=== PATIENT | female | born 1960 | race Caucasian/White ===

== ENCOUNTER 2017-11-21 12:52 | Emergency (ER) | payer OTHER ==
[2017-11-21 13:19] LABS: Absolute Lymphocytes (CBC) 1.6 K/uL (0.7-4.9); Absolute Monocytes 0.8 K/uL (0.1-1.3); Absolute Neutrophil 2.7 K/uL (1.8-8.0); Basophils % 0.7 % (0-1.3); Eosinophils % 2.8 % (0-4.4); Hematocrit 43.1 % (36.0-45.0); Lymphocytes % 30.2 % (15.3-44.8); MCH 31.7 pg (27.0-35.0); MCV 95.7 fL (80-100); MPV 8.3 fL (7.6-11.3); Monocytes % 15.2 % (3.3-12.3); RBC Red Blood Cell Count 4.51 M/uL (3.86-4.86)
[2017-11-21 13:30] LABS: Protime INR 0.93
--- NOTE | 2017-11-21 13:32 | RAD REPORT ---
EXAM DESCRIPTION: RAD - Chest Single View - 11/21/2017 1:26 pm CLINICAL HISTORY: Chest pain;SOB Chest pain. COMPARISON: CHEST PA AND LAT 2 VIEW dated 05/21/2008; CHEST SINGLE VIEW dated 11/26/2006 FINDINGS: Portable technique limits examination quality. The lungs are grossly clear. The heart is normal in size. No displaced fractures. IMPRESSION: No acute intrathoracic process suspected.
[2017-11-21 13:36] LABS: Albumin 3.4 g/dL (3.4-5.0); Bilirubin Direct 0.1 mg/dL (0-0.2); Bilirubin Total 0.4 mg/dL (0.2-1.0); Magnesium 2.2 mg/dL (1.8-2.4); Potassium 3.5 mmol/L (3.5-5.1); Protein, Total 7.4 g/dL (6.4-8.2)
[2017-11-21 13:49] LABS: Blood Morphology Comment NOT SEEN (NOT SEEN); Platelet Estimate ADEQ; Urine White Blood Cell Casts OK
--- NOTE | 2017-11-21 14:06 | RAD REPORT ---
EXAM DESCRIPTION: CT - Chest For Pe Angio - 11/21/2017 1:56 pm CLINICAL HISTORY: Chest pain. Chest pain;SOB COMPARISON: Chest Single View dated 11/21/2017 TECHNIQUE: CT angiogram of the pulmonary arteries was performed with MIP. All CT scans are performed using dose optimization technique as appropriate and may include automated exposure control or mA/KV adjustment according to patient size. FINDINGS: No evidence of pulmonary thromboembolism. No acute aortic finding demonstrated. Ground-glass opacity is noted in both lungs likely representing mild interstitial pulmonary edema. Small right pleural effusion. Several right lateral rib fractures are noted with evidence of callus formation/healing. IMPRESSION: No evidence of pulmonary thromboembolism. Mild interstitial pulmonary edema suspected.
--- NOTE | 2017-11-21 15:35 | RAD REPORT ---
EXAM DESCRIPTION: VAS - Extrem Venous W Compress Jesús - 11/21/2017 3:28 pm CLINICAL HISTORY: selling and SOB;Pain Bilateral leg edema and swelling. COMPARISON: Extrem Venous W Compress Jesús dated 03/22/2016 TECHNIQUE: Real-time sonographic interrogation of the left and right lower extremity deep venous sys tems was performed. FINDINGS: Normal compressibility, flow augmentation, phasic flow and spontaneous flow is identified in both the left and right lower extremity deep venous systems. IMPRESSION: No sonographic evidence of left or right lower extremity deep venous thrombosis.
--- NOTE | 2017-11-21 15:55 | EDPHYS ---
Physician Documentation [facility] Name: Nicky Jaquez Age: 57 yrs Sex: Female : 1960 Arrival Date: 11/21/2017 Time: 12:54 Bed 23 Private MD: Miguelito Cummings ED Physician Gigi Batista HPI: 11/21 16:14 This 57 yrs old Female presents to ER via Wheelchair with complaints of Chest kdr Pain, Shortness Of Breath. 16:14 The patient or guardian reports chest pain that is located primarily in the anterior kdr chest wall, right. Onset: suddenly, 3 day(s) ago. The pain does not radiate. Associated signs and symptoms: Pertinent positives: shortness of breath, Pertinent negatives: abdominal pain, cough, diaphoresis, dizziness, headache, lower extremity pain, lower extremity swelling, lightheadedness, nausea, near syncope, palpitations, recent travel, syncope, vomiting. The chest pain is described as aching, burning, dull. Duration: The patient or guardian reports multiple episodes, that are intermittent, that wax and wane, with no pattern. Modifying factors: The symptoms are alleviated by nothing. the symptoms are aggravated by nothing. Severity of pain: At its worst the pain was mild in the emergency department the pain has improved mildly. The patient has not experienced similar symptoms in the past. The patient has been recently seen by a physician: Dr. Cummings Sent to the ED for eval. Historical: - Allergies: 13:11 Copaxone; aj - Home Meds: 13:11 levothyroxine oral [Active]; venlafaxine oral oral [Active]; Abilify oral oral aj [Active]; quetiapine oral oral [Active]; Avelox Oral [Active]; Topamax Oral [Active]; aspirin 81 mg Oral TbEC 1 tab once daily [Active]; - PMHx: 13:11 Bipolar disorder; Multiple Sclerosis; Glaucoma; aj - PSHx: 13:11 Tonsillectomy; ; Cholecystectomy; aj - Immunization history:: Adult Immunizations up to date. - Social history:: Smoking status: Patient/guardian denies using tobacco. - Ebola Screening: : Patient negative for fever greater than or equal to 101.5 degrees Fahrenheit, and additional compatible Ebola Virus Disease symptoms Patient denies exposure to infectious person Patient denies travel to an Ebola-affected area in the 21 days before illness onset No symptoms or risks identified at this time. ROS: 16:14 Constitutional: Negative for fever, chills, and weight loss, Eyes: Negative for injury, kdr pain, redness, and discharge, Neck: Negative for injury, pain, and swelling, Abdomen/GI: Negative for abdominal pain, nausea, vomiting, diarrhea, and constipation, Back: Negative for injury and pain, : Negative for injury, bleeding, discharge, and swelling, MS/Extremity: Negative for injury and deformity, Skin: Negative for injury, rash, and discoloration, Neuro: Negative for headache, weakness, numbness, tingling, and seizure activity. Psych: Negative for depression, anxiety, suicide ideation, homicidal ideation, and hallucinations, Allergy/Immunology: Negative for hives, rash, and allergies, Endocrine: Negative for neck swelling, polydipsia, polyuria, polyphagia, and marked weight changes, Hematologic/Lymphatic: Negative for swollen nodes, abnormal bleeding, and unusual bruising. 16:14 Cardiovascular: Positive for chest pain, Negative for edema, orthopnea, palpitations, paroxysmal nocturnal dyspnea, acute changes. 16:14 Respiratory: Positive for shortness of breath, Negative for cough, dyspnea on exertion, hemoptysis, orthopnea, SOB when talking. Exam: 16:14 Constitutional: This is a well developed, well nourished patient who is awake, alert, kdr and in no acute distress. Head/Face: Normocephalic, atraumatic. Eyes: Pupils equal round and reactive to light, extra-ocular motions intact. Lids and lashes normal. Conjunctiva and sclera are non-icteric and not injected. Cornea within normal limits. Periorbital areas with no swelling, redness, or edema. Neck: Trachea midline, no thyromegaly or masses palpated, and no cervical lymphadenopathy. Supple, full range of motion without nuchal rigidity, or vertebral point tenderness. No Meningismus. Chest/axilla: Normal chest wall appearance and motion. Nontender with no deformity. No lesions are appreciated. Cardiovascular: Regular rate and rhythm with a normal S1 and S2. No gallops, murmurs, or rubs. Normal PMI, no JVD. No pulse deficits. Respiratory: Lungs have equal breath sounds bilaterally, clear to auscultation and percussion. No rales, rhonchi or wheezes noted. No increased work of breathing, no retractions or nasal flaring. Abdomen/GI: Soft, non-tender, with normal bowel sounds. No distension or tympany. No guarding or rebound. No evidence of tenderness throughout. Back: No spinal tenderness. No costovertebral tenderness. Full range of motion. Skin: Warm, dry with normal turgor. Normal color with no rashes, no lesions, and no evidence of cellulitis. MS/ Extremity: Pulses equal, no cyanosis. Neurovascular intact. Full, normal range of motion. Neuro: Awake and alert, GCS 15, oriented to person, place, time, and situation. Cranial nerves II-XII grossly intact. Motor strength 5/5 in all extremities. Sensory grossly intact. Cerebellar exam normal. Normal gait. Psych: Awake, alert, with orientation to person, place and time. Behavior, mood, and affect are within normal limits. Vital Signs: 13:11 BP 127 / 93; Pulse 104; Resp 22; Temp 97.6; Pulse Ox 99% on R/A; Weight 87.09 kg; aj Height 5 ft. 5 in. (165.10 cm); 13:58 BP 135 / 89; Pulse 103; Resp 16; Pulse Ox 100% on R/A; kr2 14:36 BP 140 / 78; Pulse 98; Resp 17; Pulse Ox 96% on R/A; kr2 15:38 BP 146 / 70; Pulse 100; Resp 17; Pulse Ox 100% ; kr2 13:11 Body Mass Index 31.95 (87.09 kg, 165.10 cm) MDM: 15:54 Patient medically screened. kdr 16:14 Data reviewed: vital signs, EMS record, lab test result(s), EKG, radiologic studies. kdr Counseling: I had a detailed discussion with the patient and/or guardian regarding: the historical points, exam findings, and any diagnostic results supporting the discharge/admit diagnosis, lab results, radiology results, the need for outpatient follow up. Physician consultation: Miguelito Cummings MD regarding patient's condition, need to evaluate the patient as soon as possible, outpatient follow-up, and will see patient in office, next week. Special discussion: Based on the patient's history, exam, and Dx evaluation, there is no indication for emergent intervention or inpatient Tx. It is understood by the patient/guardian that if the Sx's persist or worsen they need to return immediately for re-evaluation. I discussed with the patient/guardian in detail that at this point there is no indication for admission to the hospital. It is understood, however, that if the symptoms persist or worsen the patient needs to return immediately for re-evaluation. 11/21 13:00 Order name: Basic Metabolic Panel; Complete Time: 14:49 kdr 11/21 13:00 Order name: CBC with Diff; Complete Time: 14:49 kdr 11/21 13:00 Order name: LFT's; Complete Time: 14:49 kdr 11/21 13:00 Order name: Magnesium; Complete Time: 14:49 kdr 11/21 13:00 Order name: NT PRO-BNP; Complete Time: 14:49 kdr 11/21 13:01 Order name: PT-INR; Complete Time: 14:49 kdr 11/21 13:01 Order name: Ptt, Activated; Complete Time: 14:49 kdr 11/21 13:01 Order name: Troponin (emerg Dept Use Only); Complete Time: 14:49 kdr 11/21 13:01 Order name: XRAY Chest (1 view); Complete Time: 14:49 kdr 11/21 13:01 Order name: Blood Culture Adult (2) kdr 11/21 13:01 Order name: DD; Complete Time: 14:49 kdr 11/21 13:26 Order name: CBC Smear Scan; Complete Time: 14:49 EDMS 11/21 15:14 Order name: Urine Dipstick--Ancillary (enter results) eb 11/21 15:14 Order name: Urine --Ancillary (enter results) eb 11/21 13:01 Order name: EKG; Complete Time: 13:01 kdr 11/21 13:01 Order name: Cardiac monitoring; Complete Time: 13:07 kdr 11/21 13:01 Order name: EKG - Nurse/Tech; Complete Time: 13:07 kdr 11/21 13:01 Order name: IV Saline Lock; Complete Time: 13:07 kdr 11/21 13:01 Order name: Labs collected and sent; Complete Time: 13:07 kdr 11/21 13:01 Order name: O2 Per Protocol; Complete Time: 13:07 kdr 11/21 13:01 Order name: O2 Sat Monitoring; Complete Time: 13:07 kdr 11/21 13:01 Order name: Urine Dipstick-Ancillary (obtain specimen); Complete Time: 15:06 kdr 11/21 13:01 Order name: CT Chest For PE Angio; Complete Time: 14:49 kdr 11/21 14:55 Order name: US Extremity Venous W Compression Jesús; Complete Time: 15:52 kdr Administered Medications: No medications were administered Disposition: 11/21/17 15:54 Discharged to Home. Impression: Chest pain, unspecified, Shortness of breath. - Condition is Stable. - Discharge Instructions: Shortness of Breath, [id number], Nonspecific Chest Pain, [id number]. - Medication Reconciliation Form, Thank You Letter form. - Follow up: Miguelito Cummings MD; When: 2 - 3 days; Reason: If symptoms return, Further diagnostic work-up, Recheck today's complaints, Continuance of care, Re-evaluation by your physician. - Problem is new. - Symptoms have improved. Signatures: Dispatcher [employer] EDNV Daria Olea RN RN Gigi Isabel MD MD kdr Gina Beltran RN RN kr2 Corrections: (The following items were deleted from the chart) 16:05 15:54 11/21/2017 15:54 Discharged to Home. Impression: Chest pain, unspecified; kr2 Shortness of breath. Condition is Stable. Forms are Medication Reconciliation Form, Thank You Letter, Antibiotic Education, Prescription Opioid Use. Follow up: Miguelito Cummings; When: 2 - 3 days; Reason: If symptoms return, Further diagnostic work-up, Recheck today's complaints, Continuance of care, Re-evaluation by your physician. Problem is new. Symptoms have improved. kdr
--- NOTE | 2017-11-21 15:55 | ER ---
Nurse's Notes [facility] Name: Nicky Jaquez Age: 57 yrs Sex: Female : 1960 Arrival Date: 11/21/2017 Time: 12:54 Bed 23 Private MD: Miguelito Cummings Diagnosis: Chest pain, unspecified;Shortness of breath Presentation: 11/21 13:08 Presenting complaint: Patient states: Pain in right clavicle that moves around to right aj axilla and then to back with SOB since Tuesday. Patient reports pain is worse with movement and deep breathing. In NAD. Respirations are even and unlabored. Transition of care: patient was not received from another setting of care. Onset of symptoms was November 19, 2017. Risk Assessment: Do you want to hurt yourself or someone else? Patient reports no desire to harm self or others. Initial Sepsis Screen: Does the patient meet any 2 criteria? No. Patient's initial sepsis screen is negative. Does the patient have a suspected source of infection? No. Patient's initial sepsis screen is negative. Care prior to arrival: None. 13:08 Method Of Arrival: Wheelchair aj 13:08 Acuity: JOHN 3 aj Triage Assessment: 13:11 General: Appears in no apparent distress. comfortable, Behavior is calm, cooperative, aj appropriate for age. Pain: Complains of pain in back, right clavicle, anterior aspect of right upper chest and right axilla. Pain: Aggravated by increased activity. Neuro: Level of Consciousness is awake, alert, obeys commands, Oriented to person, place, time, situation, Appropriate for age. Cardiovascular: Capillary refill < 3 seconds in bilateral fingers Patient's skin is warm and dry. Respiratory: Airway is patent Trachea midline Respiratory effort is even, unlabored, Respiratory pattern is regular, symmetrical. Respiratory: Reports pain with respiration. Derm: Skin is intact, is healthy with good turgor, Skin is pink, warm \T\ dry. normal. Historical: - Allergies: 13:11 Copaxone; aj - Home Meds: 13:11 levothyroxine oral [Active]; venlafaxine oral oral [Active]; Abilify oral oral aj [Active]; quetiapine oral oral [Active]; Avelox Oral [Active]; Topamax Oral [Active]; aspirin 81 mg Oral TbEC 1 tab once daily [Active]; - PMHx: 13:11 Bipolar disorder; Multiple Sclerosis; Glaucoma; aj - PSHx: 13:11 Tonsillectomy; ; Cholecystectomy; aj - Immunization history:: Adult Immunizations up to date. - Social history:: Smoking status: Patient/guardian denies using tobacco. - Ebola Screening: : Patient negative for fever greater than or equal to 101.5 degrees Fahrenheit, and additional compatible Ebola Virus Disease symptoms Patient denies exposure to infectious person Patient denies travel to an Ebola-affected area in the 21 days before illness onset No symptoms or risks identified at this time. Screenin:31 Abuse screen: Denies threats or abuse. Denies injuries from another. Nutritional kr2 screening: No deficits noted. Tuberculosis screening: No symptoms or risk factors identified. Fall Risk None identified. Assessment: 13:05 General: Appears in no apparent distress. uncomfortable, well groomed, well developed, kr2 well nourished, Behavior is calm, cooperative, appropriate for age. Pain: Complains of pain in anterior aspect of right upper chest Pain radiates to right arm and back and right axilla and right clavicle Pain currently is 6 out of 10 on a pain scale. Quality of pain is described as sharp, shooting, stabbing, Pain began suddenly, Is continuous, Alleviated by rest, Aggravated by increased activity. Neuro: Level of Consciousness is awake, alert, obeys commands, Oriented to person, place, time, situation, Appropriate for age. Cardiovascular: Capillary refill < 3 seconds in bilateral fingers Patient's skin is warm and dry. Respiratory: Airway is patent Respiratory effort is even, unlabored, Respiratory pattern is regular, symmetrical. GI: Abdomen is flat, non-distended, Patient currently denies nausea. : Denies burning with urination. EENT: Oral mucosa is moist. Derm: Skin is intact, is healthy with good turgor, Skin is pink, warm \T\ dry. Musculoskeletal: Circulation, motion, and sensation intact. 13:58 Reassessment: Patient appears in no apparent distress at this time. Patient and/or kr2 family updated on plan of care and expected duration. Pain level reassessed. Patient is alert, oriented x 3, equal unlabored respirations, skin warm/dry/pink. Patient states feeling better. 14:36 Reassessment: Patient appears in no apparent distress at this time. Patient and/or kr2 family updated on plan of care and expected duration. Pain level reassessed. Patient is alert, oriented x 3, equal unlabored respirations, skin warm/dry/pink. Patient states feeling better. 15:19 Reassessment: Patient in ultrasound at this time. kr2 15:36 Reassessment: Patient appears in no apparent distress at this time. Patient and/or kr2 family updated on plan of care and expected duration. Pain level reassessed. Patient is alert, oriented x 3, equal unlabored respirations, skin warm/dry/pink. Patient returned from ultrasound. Placed back on monitors. Denies having any needs at this time Patient states symptoms have improved. Vital Signs: 13:11 BP 127 / 93; Pulse 104; Resp 22; Temp 97.6; Pulse Ox 99% on R/A; Weight 87.09 kg; aj Height 5 ft. 5 in. (165.10 cm); 13:58 BP 135 / 89; Pulse 103; Resp 16; Pulse Ox 100% on R/A; kr2 14:36 BP 140 / 78; Pulse 98; Resp 17; Pulse Ox 96% on R/A; kr2 15:38 BP 146 / 70; Pulse 100; Resp 17; Pulse Ox 100% ; kr2 13:11 Body Mass Index 31.95 (87.09 kg, 165.10 cm) ED Course: 12:54 Patient arrived in ED. sb2 12:55 Miguelito Cummings MD is Private Physician. sb2 12:59 Gigi Batista MD is Attending Physician. kdr 13:04 Radiology exam delayed due to lab results not completed at this time. (BUN/Creatinine). vm2 13:05 Inserted saline lock: 20 gauge in right antecubital area, using aseptic technique. kr2 Blood collected. Patient maintains SpO2 saturation greater than 95% on room air. 13:05 Patient has correct armband on for positive identification. Bed in low position. Call kr2 light in reach. Side rails up X2. cardiac monitor on. Pulse ox on. NIBP on. Door closed. Warm blanket given. Head of bed elevated. 13:06 Gina Beltran, BERNARDO is Primary Nurse. kr2 13:09 Triage completed. aj 13:09 EKG done, by resource technician. reviewed by Gigi Batista MD. at1 13:11 Arm band placed on left wrist. Patient placed in an exam room, on a stretcher. EKG aj completed in triage. Results shown to MD. 13:16 X-ray completed. Portable x-ray completed in exam room. Patient tolerated procedure mh1 well. 13:18 XRAY Chest (1 view) In Process Unspecified. EDMS 13:40 Notified ED physician of a critical lab result(s). Dr. Batista DDimer [id number]. kr2 13:[address] vm2 13:54 CT completed. Patient tolerated procedure well. Patient moved back from CT. vm2 13:56 CT Chest For PE Angio In Process Unspecified. EDMS 15:14 Patient taken to ultrasound. via wheelchair. lc3 15:22 Ultrasound completed. Patient tolerated well. Patient moved back from ultrasound. lc3 15:23 US Extremity Venous W Compression Jesús In Process Unspecified. EDMS 15:54 Miguelito Cummings MD is Referral Physician. kdr 16:04 No provider procedures requiring assistance completed. Patient did not have IV access kr2 during this emergency room visit. Administered Medications: No medications were administered Outcome: 15:54 Discharge ordered by . kdr 16:05 Discharged to home ambulatory, with family. kr2 16:05 Condition: good 16:05 Discharge instructions given to patient, Instructed on discharge instructions, follow up and referral plans. Demonstrated understanding of instructions, follow-up care. 16:05 Patient left the ED. kr2 Signatures: Dispatcher [employer] EDMS Daria Olea, RN RN Gigi Isabel MD MD kdr Marychuy Rm mh1 Daria posadas, account manager relief EKG Tat1 Serena Alvarado lc3 Cydney Álvarez vm2 Gina Beltran RN RN kr2 Joyce Garcia sb2
--- NOTE | 2017-11-21 16:20 | EKG ---
Test Date: 2017-11-21 Test Time: 13:05:37 Gymnastics Coach: CHANDRAKANT MEASUREMENT RESULTS: Intervals: Rate: 101 MN: 158 QRSD: 74 QT: 344 QTc: 446 [place]: P: 71 MN: 158 QRS: 43 T: 61 INTERPRETIVE STATEMENTS: Sinus tachycardia Otherwise normal ECG Compared to ECG 11/26/2006 20:27:44 Sinus rhythm no longer present Electronically Signed On 11-21-17 16:20:07 CDT by Esvin Steiner
[2017-11-21 16:37] LABS: Urine Blood NEGATIVE (NEG); Urine Glucose NEGATIVE (NEG); Urine Protein NEGATIVE (NEG); Urine Specific Gravity 1.015 (1.005-1.030); Urine pH 7.5 (5.0-7.0)
== END 2017-11-21 16:05 | disposition home or self-care (01) ==
LOC: ER 12:52
DX: R07.9 Chest pain, unspecified (principal); R06.02 Shortness of breath; F31.9 Bipolar disorder, unspecified; Z79.82 Long term (current) use of aspirin; Z88.8 Allergy status to other drugs, medicaments and biological substances
CPT/HCPCS: 36415; 71045; 71275; 80048; 80076; 81003; 81025; 83735; 83880; 84484; 85025; 85379; 85610; 85730; 87040; 93005; 93970; 99285; Q9967

== ENCOUNTER 2019-06-17 12:12 | Emergency (ER) | payer OTHER ==
--- OUTSIDE RECORDS SUMMARY | 2019-06-17 12:13 | XMS REPORT ---
:1960 [facility] Address [address] [place] [address] Dr. Disla [address] [place] [id number] Care Team Providers Name Role Phone Unavailable Unavailable Unavailable Problems This patient has no known problems. Allergies, Adverse Reactions, Alerts This patient has no known allergies or adverse reactions. Medications This patient has no known medications.
[2019-06-17] MEDS ORDERED: NA CHLORIDE 0.9% 1,000 ML ONE (13:09)
[2019-06-17 13:19] LABS: Absolute Lymphocytes (CBC) 1.4 K/uL (0.7-4.9); Basophils % 0.6 % (0-1.3); Hematocrit 36.4 % (36.0-45.0); Lymphocytes % 27.4 % (15.3-44.8); MPV 8.4 fL (7.6-11.3); RBC Red Blood Cell Count 4.09 M/uL (3.86-4.86)
[2019-06-17 13:20] LABS: Protime INR 1.54
--- NOTE | 2019-06-17 13:26 | RAD REPORT ---
EXAM DESCRIPTION: RAD - Chest Single View - 06/17/2019 1:20 pm CLINICAL HISTORY: COUGH COMPARISON: Chest Single View dated 11/21/2017 TECHNIQUE: AP portable chest image was obtained 06/17/2019 1:20 pm . FINDINGS: Lungs are clear. Heart and vasculature are normal. No measurable pleural effusion and no p neumothorax. No acute bony abnormality seen. No acute aortic findings suspected. IMPRESSION: No acute cardiopulmonary process. No significant interval change.
[2019-06-17 13:36] LABS: ALT/SGPT 20 U/L (12-78); AST/SGOT 21 U/L (15-37); Alkaline Phosphatase 79 U/L (45-117); BUN Blood Urea Nitrogen 14 mg/dL (7-18); Bicarbonate 30 mmol/L (21-32); Bilirubin Direct < 0.1 mg/dL (0-0.2); Bilirubin Total 0.3 mg/dL (0.2-1.0); Glucose Level 85 mg/dL (74-106); Magnesium 1.9 mg/dL (1.8-2.4); NT PRO-BNP 152 pg/mL (<125); Potassium 4.2 mmol/L (3.5-5.1); Protein, Total 6.7 g/dL (6.4-8.2); Sodium Level 140 mmol/L (136-145); Troponin (Emerg Dept Use Only) < 0.02 ng/mL (0.0-0.045)
--- NOTE | 2019-06-17 14:37 | RAD REPORT ---
EXAM DESCRIPTION: CT - Chest For Pe Angio - 06/17/2019 2:08 pm CLINICAL HISTORY: COUGH, history of right leg DVT treated with Xeralto COMPARISON: Chest For Pe Angio dated 11/21/2017; Chest Single View dated 06/17/2019 TECHNIQUE: Dynamically enhanced 3 mm thick images of the chest were obtained during administration o f approximately 150mL Isovue 370 IV contrast. Coronal and oblique MIP reconstruction images were gene rated and reviewed. Exam utilizes a protocol to evaluate the pulmonary arterial tree. All CT scans are performed using dose optimization technique as appropriate and may include automated exposure control or mA/KV adjustment according to patient size. FINDINGS: No pulmonary emboli are identified. The aorta as imaged shows no acute or suspicious finding. No pericardial thickening or effusion. No infiltrate or mass in the lung parenchyma. No pleural effusion or pleural thickening. No mediastinal or hilar suspicious masses. No chest wall masses or abnormal axillary lymphadenopathy. IMPRESSION: No pulmonary emboli identified. No other significant or suspicious findings.No significant change from the 2018 CT study.
--- NOTE | 2019-06-17 14:39 | RAD REPORT ---
EXAM DESCRIPTION: US - Extrem Venous W Compress Jesús - 06/17/2019 1:52 pm CLINICAL HISTORY: Right lower extremity pain COMPARISON: DVT study April 26, 2019 TECHNIQUE: Real-time sonographic evaluation of the bilateral lower extremity common femoral, superfi cial femoral, popliteal and posterior tibial veins was performed. FINDINGS: Normal compressibility, flow augmentation, phasic flow and spontaneous flow are identified in the left and right lower extremity common femoral, superficial femoral, popliteal and posterior t ibial veins. No intraluminal filling defects seen. Thrombus seen in the right common femoral vein Dec ember 12 has resolved. IMPRESSION: No DVT in either lower extremity.
--- NOTE | 2019-06-17 14:49 | ER ---
Nurse's Notes [facility] Name: Nicky Jaquez Age: 58 yrs Sex: Female : 1960 Arrival Date: 06/17/2019 Time: 12:13 Bed 26 Private MD: Miguelito Cummings Diagnosis: Dyspnea Presentation: 06/17 12:22 Presenting complaint: Patient states: She was diagnosed with a blood clot in her right aj1 femoral vein, she was started on Xarelto, the past 2 or 3 nights she has been feeling short of breath. Transition of care: patient was not received from another setting of care. Onset of symptoms was June 2019. Risk Assessment: Do you want to hurt yourself or someone else? Patient reports no desire to harm self or others. Initial Sepsis Screen: Does the patient meet any 2 criteria? HR > 90 bpm. No. Patient's initial sepsis screen is negative. Does the patient have a suspected source of infection? Yes: Productive cough/pneumonia. Care prior to arrival: None. 12:22 Method Of Arrival: Wheelchair aj1 12:22 Acuity: JOHN 2 aj1 Triage Assessment: 12:26 General: Appears in no apparent distress. comfortable, Behavior is calm, cooperative, aj1 appropriate for age. Pain: Denies pain. Neuro: Level of Consciousness is awake, alert, obeys commands, Oriented to person, place, time, situation. Cardiovascular: Patient's skin is warm and dry. Respiratory: Reports shortness of breath at rest Airway is patent Respiratory effort is even, unlabored, Respiratory pattern is regular, symmetrical, Onset: The symptoms/episode began/occurred yesterday, the patient has mild shortness of breath. Historical: - Allergies: 12: Copaxone; aj1 - Home Meds: 12:26 levothyroxine 75 mcg oral tab once daily [Active]; venlafaxine 225 mg oral tr24 1 tab aj1 once daily [Active]; aripiprazole 10 mg oral TbDL 1 tab once daily [Active]; metoprolol tartrate 50 mg Oral tab 1 tab 2 times per day [Active]; Xarelto 20 mg oral tab 1 tab once daily [Active]; Crestor 20 mg oral tab 1 tab once daily [Active]; multivitamin oral oral daily [Active]; caclium with vitamin d3 daily [Active]; pantoprazole 40 mg oral TbEC 1 tab once daily [Active]; - PMHx: 12:26 Bipolar disorder; Glaucoma; Multiple Sclerosis; aj1 - Immunization history:: Flu vaccine is up to date. - Coronavirus screen:: The patient has NOT traveled to [place], [place], or [place] in the past 14 days. - Social history:: Smoking status: Patient/guardian denies using tobacco. - Ebola Screening: : Patient denies travel to an Ebola-affected area in the 21 days before illness onset. Screenin:00 Fall Risk IV access (20 points). mg2 13:59 Abuse screen: Denies threats or abuse. Denies injuries from another. Nutritional mg2 screening: No deficits noted. Tuberculosis screening: No symptoms or risk factors identified. Assessment: 13:56 General: Appears in no apparent distress. comfortable, Behavior is calm, cooperative. mg2 Pain: Denies pain. Neuro: Level of Consciousness is awake, alert, obeys commands, Oriented to person, place, time, situation. Cardiovascular: Rhythm is regular. Respiratory: Airway is patent Respiratory effort is even, unlabored, Respiratory pattern is regular, symmetrical, Breath sounds are clear bilaterally. in mediastinum, right upper lobe, left upper lobe, right middle lobe, left lower lobe and right lower lobe. Respiratory: Reports shortness of breath. GI: No signs and/or symptoms were reported involving the gastrointestinal system. : No signs and/or symptoms were reported regarding the genitourinary system. EENT: No signs and/or symptoms were reported regarding the EENT system. Derm: Skin is intact, is healthy with good turgor, Skin is pink, warm \T\ dry. normal. Musculoskeletal: Circulation, motion, and sensation intact. Capillary refill < 3 seconds. 15:11 Reassessment: Patient appears in no apparent distress at this time. Patient is alert, mg2 oriented x 3, equal unlabored respirations, skin warm/dry/pink. Vital Signs: 12:26 BP 104 / 67; Pulse 104; Resp 20; Temp 98.2; Pulse Ox 97% on R/A; Weight 90.72 kg (R); aj1 Height 5 ft. 4 in. (162.56 cm) (R); Pain 0/10; 14:45 BP 117 / 69; Pulse 87; Resp 18; Pulse Ox 100% ; mg2 15:11 BP 113 / 70; Pulse 78; Resp 18; Temp 98; Pulse Ox 100% on R/A; mg2 12:26 Body Mass Index 34.33 (90.72 kg, 162.56 cm) aj1 ED Course: 12:13 Patient arrived in ED. rg4 12:14 Miguelito Cummings MD is Private Physician. rg4 12:24 Triage completed. aj1 12:26 Arm band placed on Patient placed in an exam room. aj1 12:32 Ej Espinosa MD is Attending Physician. hemal 12:34 Jim Valdez RN is Primary Nurse. mg2 13:00 Inserted saline lock: 20 gauge in right antecubital area, using aseptic technique. mg2 Blood collected. 13:05 Radiology exam delayed due to lab results not completed at this time. (BUN/Creatinine). bq 13:27 XRAY Chest (1 view) In Process Unspecified. EDMS 13:52 US Extremity Venous W Compression Jesús In Process Unspecified. EDMS 13:57 Ultrasound completed. Patient tolerated well. Notified ED Physician . sg3 13:59 No provider procedures requiring assistance completed. mg2 14:00 Patient has correct armband on for positive identification. rn observation on. Pulse mg2 ox on. NIBP on. 14:08 CT Chest For PE Angio In Process Unspecified. EDMS 14:08 CT completed. Patient tolerated procedure well. Patient moved back from CT. mw3 14:48 Miguelito Cummings MD is Referral Physician. hemal 15:11 IV discontinued, intact, bleeding controlled, No redness/swelling at site. Pressure mg2 dressing applied. Administered Medications: 13:11 Drug: NS 0.9% 1000 ml Route: IV; Rate: 1 bolus; Site: right antecubital; mg2 15:10 Follow up: Response: No adverse reaction; IV Status: Completed infusion; IV Intake: mg2 1000ml Intake: 15:10 IV: 1000ml; Total: 1000ml. mg2 Outcome: 14:49 Discharge ordered by . hemal 15:12 Discharged to home ambulatory, with family. mg2 15:12 Condition: stable 15:12 Discharge instructions given to patient, family, Instructed on discharge instructions, follow up and referral plans. Demonstrated understanding of instructions, follow-up care. 15:12 Patient left the ED. mg2 Signatures: Dispatcher [employer] EDMS Carolina Champion RN RN aj1 Ej Espinosa MD MD cha Quilty, Amairani Mills rg4 Laura Garcia sg3 Jim Valdez, BERNARDO RN Larisa Coker 3
--- NOTE | 2019-06-17 14:49 | EDPHYS ---
Physician Documentation [facility] Name: Nicky Jaquez Age: 58 yrs Sex: Female : 1960 Arrival Date: 06/17/2019 Time: 12:13 Bed 26 Private MD: Miguelito Cummings ED Physician Ej Espinosa HPI: 06/17 12:49 This 58 yrs old Female presents to ER via Wheelchair with complaints of hemal Breathing Difficulty. 12:49 The patient has shortness of breath at rest, with light activity. Onset: The hemal symptoms/episode began/occurred 2 day(s) ago. The patient's shortness of breath has no apparent modifying factors. Associated signs and symptoms: Pertinent positives: non-productive cough. Severity of symptoms: At their worst the symptoms were mild moderate in the emergency department the symptoms are unchanged. The patient has experienced similar episodes in the past, a few times. Historical: - Allergies: 12:26 Copaxone; aj1 - Home Meds: 12:26 levothyroxine 75 mcg oral tab once daily [Active]; venlafaxine 225 mg oral tr24 1 tab aj1 once daily [Active]; aripiprazole 10 mg oral TbDL 1 tab once daily [Active]; metoprolol tartrate 50 mg Oral tab 1 tab 2 times per day [Active]; Xarelto 20 mg oral tab 1 tab once daily [Active]; Crestor 20 mg oral tab 1 tab once daily [Active]; multivitamin oral oral daily [Active]; caclium with vitamin d3 daily [Active]; pantoprazole 40 mg oral TbEC 1 tab once daily [Active]; - PMHx: 12:26 Bipolar disorder; Glaucoma; Multiple Sclerosis; aj1 - Immunization history:: Flu vaccine is up to date. - Coronavirus screen:: The patient has NOT traveled to [place], [place], or [place] in the past 14 days. - Social history:: Smoking status: Patient/guardian denies using tobacco. - Ebola Screening: : Patient denies travel to an Ebola-affected area in the 21 days before illness onset. ROS: 12:50 Constitutional: Negative for fever, chills, and weight loss, Eyes: Negative for injury, hemal pain, redness, and discharge, ENT: Negative for injury, pain, and discharge, Neck: Negative for injury, pain, and swelling, Cardiovascular: Negative for chest pain, palpitations, and edema, Abdomen/GI: Negative for abdominal pain, nausea, vomiting, diarrhea, and constipation, Back: Negative for injury and pain, : Negative for injury, bleeding, discharge, and swelling, Skin: Negative for injury, rash, and discoloration, Neuro: Negative for headache, weakness, numbness, tingling, and seizure, Psych: Negative for depression, anxiety, suicide ideation, homicidal ideation, and hallucinations, Allergy/Immunology: Negative for hives, rash, and allergies, Endocrine: Negative for neck swelling, polydipsia, polyuria, polyphagia, and marked weight changes, Hematologic/Lymphatic: Negative for swollen nodes, abnormal bleeding, and unusual bruising. 12:50 Respiratory: Positive for cough, with no reported sputum, shortness of breath, at rest. 12:50 MS/extremity: Positive for decreased range of motion, pain, swelling, of the right leg. Exam: 12:50 Constitutional: This is a well developed, well nourished patient who is awake, alert, hemal and in no acute distress. Head/Face: Normocephalic, atraumatic. Eyes: Pupils equal round and reactive to light, extra-ocular motions intact. Lids and lashes normal. Conjunctiva and sclera are non-icteric and not injected. Cornea within normal limits. Periorbital areas with no swelling, redness, or edema. ENT: Nares patent. No nasal discharge, no septal abnormalities noted. Tympanic membranes are normal and external auditory canals are clear. Oropharynx with no redness, swelling, or masses, exudates, or evidence of obstruction, uvula midline. Mucous membranes moist. Neck: Trachea midline, no thyromegaly or masses palpated, and no cervical lymphadenopathy. Supple, full range of motion without nuchal rigidity, or vertebral point tenderness. No Meningismus. Chest/axilla: Normal chest wall appearance and motion. Nontender with no deformity. No lesions are appreciated. Cardiovascular: Regular rate and rhythm with a normal S1 and S2. No gallops, murmurs, or rubs. Normal PMI, no JVD. No pulse deficits. Respiratory: Lungs have equal breath sounds bilaterally, clear to auscultation and percussion. No rales, rhonchi or wheezes noted. No increased work of breathing, no retractions or nasal flaring. Abdomen/GI: Soft, non-tender, with normal bowel sounds. No distension or tympany. No guarding or rebound. No evidence of tenderness throughout. Back: No spinal tenderness. No costovertebral tenderness. Full range of motion. Female : Normal external genitalia. Skin: Warm, dry with normal turgor. Normal color with no rashes, no lesions, and no evidence of cellulitis. Neuro: Awake and alert, GCS 15, oriented to person, place, time, and situation. Cranial nerves II-XII grossly intact. Motor strength 5/5 in all extremities. Sensory grossly intact. Cerebellar exam normal. Normal gait. Psych: Awake, alert, with orientation to person, place and time. Behavior, mood, and affect are within normal limits. 12:50 Musculoskeletal/extremity: ROM: full active range of motion, full passive range of motion, Circulation is intact in all extremities. Sensation intact. Compartment Syndrome exam of affected extremity: is normal. DVT Exam: negative Homans' sign noted on exam, no appreciated bluish discoloration, no erythema, no increased warmth, pain, swelling, tenderness. Vital Signs: 12:26 BP 104 / 67; Pulse 104; Resp 20; Temp 98.2; Pulse Ox 97% on R/A; Weight 90.72 kg (R); aj1 Height 5 ft. 4 in. (162.56 cm) (R); Pain 0/10; 14:45 BP 117 / 69; Pulse 87; Resp 18; Pulse Ox 100% ; mg2 15:11 BP 113 / 70; Pulse 78; Resp 18; Temp 98; Pulse Ox 100% on R/A; mg2 12:26 Body Mass Index 34.33 (90.72 kg, 162.56 cm) [facility] MDM: 12:32 [facility] 12:52 Data reviewed: vital signs, nurses notes, lab test result(s), EKG, radiologic studies, [facility] scan, doppler, plain films. 06/17 12:49 Order name: Basic Metabolic Panel; Complete Time: 14:00 [facility] 06/17 12:49 Order name: CBC with Diff; Complete Time: 13:36 [facility] 06/17 12:49 Order name: LFT's; Complete Time: 14:00 [facility] 06/17 12:49 Order name: Magnesium; Complete Time: 14:00 [facility] 06/17 12:49 Order name: NT PRO-BNP; Complete Time: 14:00 [facility] 06/17 12:49 Order name: PT-INR; Complete Time: 13:36 [facility] 06/17 12:49 Order name: Troponin (emerg Dept Use Only); Complete Time: 14:00 [facility] 06/17 12:49 Order name: XRAY Chest (1 view); Complete Time: 13:36 [facility] 06/17 12:49 Order name: EKG; Complete Time: 12:50 [facility] 06/17 12:49 Order name: US Extremity Venous W Compression Jesús [facility] 06/17 12:49 Order name: CT Chest For PE Angio [facility] 06/17 12:49 Order name: Urine Culture [facility] 06/17 14:38 Order name: Urine Dipstick--Ancillary (enter results) or 06/17 12:49 Order name: Cardiac monitoring; Complete Time: 13:12 [facility] 06/17 12:49 Order name: EKG - Nurse/Tech; Complete Time: 13:12 [facility] 06/17 12:49 Order name: IV Saline Lock; Complete Time: 13:12 [facility] 06/17 12:49 Order name: Labs collected and sent; Complete Time: 13:12 [facility] 06/17 12:49 Order name: O2 Per Protocol; Complete Time: 13:12 [facility] 06/17 12:49 Order name: O2 Sat Monitoring; Complete Time: 13:12 [facility] 06/17 12:49 Order name: Urine Dipstick-Ancillary (obtain specimen); Complete Time: 14:45 [facility] Administered Medications: 13:11 Drug: NS 0.9% 1000 ml Route: IV; Rate: 1 bolus; Site: right antecubital; mg2 15:10 Follow up: Response: No adverse reaction; IV Status: Completed infusion; IV Intake: mg2 1000ml Disposition: 06/17/19 14:49 Discharged to Home. Impression: Dyspnea. - Condition is Stable. - Discharge Instructions: Bipolar Disorder, Shortness of Breath, Shortness of Breath, [id number], Multiple Sclerosis. - Medication Reconciliation Form, Thank You Letter, Antibiotic Education, Prescription Opioid Use form. - Follow up: Miguelito Cummings MD; When: 2 - 3 days; Reason: Recheck today's complaints, Continuance of care, Re-evaluation by your physician. - Problem is new. - Symptoms have improved. Signatures: Dispatcher [employer] Carolina Silva RN RN aj1 Ej Espinosa MD MD cha Gardose, Michele RN RN mg2 Corrections: (The following items were deleted from the chart) 15:12 14:49 06/17/2019 14:49 Discharged to Home. Impression: Dyspnea. Condition is Stable. mg2 Forms are Medication Reconciliation Form, Thank You Letter, Antibiotic Education, Prescription Opioid Use. Follow up: Miguelito Cummings; When: 2 - 3 days; Reason: Recheck today's complaints, Continuance of care, Re-evaluation by your physician. Problem is new. Symptoms have improved. hemal
[2019-06-17 15:07] LABS: Urine Blood NEGATIVE (NEG); Urine Glucose NEGATIVE (NEG); Urine Protein NEGATIVE (NEG)
[2019-06-17 15:27] VITALS: O2SAT 100
[2019-06-17 15:28] VITALS: BP 113/70; TEMP 98
--- NOTE | 2019-06-18 05:26 | EKG ---
Test Date: 2019-06-17 Test Time: 13:16:55 Case Maker: MEASUREMENT RESULTS: Intervals: Rate: 85 MO: 170 QRSD: 76 QT: 390 QTc: 464 [place]: P: 67 MO: 170 QRS: 36 T: 47 INTERPRETIVE STATEMENTS: Normal sinus rhythm Normal ECG Compared to ECG 11/21/2017 13:05:37 Sinus tachycardia no longer present Electronically Signed On 06-18-19 05:25:58 NEUROSURGEON by Esvin Steiner
== END 2019-06-17 15:12 | disposition home or self-care (01) ==
LOC: ER 12:12
DX: R06.00 Dyspnea, unspecified (principal); F31.9 Bipolar disorder, unspecified; G35 Multiple sclerosis; Z88.8 Allergy status to other drugs, medicaments and biological substances
CPT/HCPCS: 96361; 93005; 87088; 85025; 87086; 80048; 36415; 83735; 85610; 80076; 81003; 84484; 83880; 71275; 71045; 93970; 96360; 99285; Q9967; J7030

== ENCOUNTER 2020-02-24 13:49 | Emergency (ER) | payer OTHER ==
--- OUTSIDE RECORDS SUMMARY | 2020-02-24 13:52 | XMS REPORT | Summary of Care ---
:1960 Author Organization [facility] Address [address] [place] [id number] Care Team Providers Name Role Phone Cummings Miguelito Alvarez Primary Care Provider Reason for Visit Reason Comments LAB WORK Encounter Details Date Type Department Care Team Description 11/28/2019 Credit Card Interviewer Visit [facility] Daniel Taylor MD [address] [place] [address]. [place] [address] MS (multiple Professional Office 2, Ad[facility] Lab sclerosis) Building Phlebotomy Lab Professional Office Building [address] [facility] , [address] [place] [address] Allergies Active Allergy Reactions Severity Noted Date Comments Glatiramer (Copolymer 1) Hives 08/29/2018 documented as of this encounter (statuses as of 11/28/2019) Medications Medication Sig Dispensed Refills Start Date End Date Status levothyroxine 50 mcg Take 50 mcg by 3 08/16/2018 Active tablet mouth. ARIPiprazole 10 mg Take 10 mg by 0 08/25/2018 Active tablet mouth daily. metoprolol tartrate 25 TAKE 1 TABLET BY 3 07/23/2018 Active mg tablet ORAL ROUTE 2 TIMES EVERY DAY QUEtiapine 300 mg 24 0 08/28/2018 Active hr tablet rosuvastatin 20 mg 0 08/27/2018 Active tablet TRAVATAN Z 0.004 % INSTILL 1 DROP 1 07/07/2018 Active ophthalmic drops INTO BOTH EYES AT BEDTIME diazePAM 5 mg tablet TAKE 1 TABLET BY 0 08/23/2018 Active MOUTH DAILY NEEDED FOR ANXIETY. MULTIVITAMIN ORAL Take by mouth. 0 Active calcium Take by mouth. 0 Acti ve carbonate/vitamin D3 (CALCIUM 500 + D, D3, ORAL) pantoprazole 40 mg EC Take 40 mg by 0 Active tablet mouth daily. Venlafaxine 225 mg Take by mouth. 0 Active TR24 traZODONE 50 mg tablet Take 50 mg by 0 12/29/2018 Active mouth at bedtime. acetaminophen-codeine Take 1 tablet by 40 tablet 1 01/09/2019 Active (TYLENOL-CODEINE #3) mouth every 4 300-30 mg (four) hours as tabletIndications: needed for Pain Status post total (scale 4-6) or replacement of right Pain (scale hip 7-10). pregabalin 25 mg Take 2 capsules 180 capsule 1 03/27/2019 Active capsuleIndications: by mouth 3 Left inguinal pain, (three) times Status post total daily. replacement of left hip XARELTO 20 mg tablet 0 05/14/2019 Active iohexol (OMNIPAQUE Inject 41 mcg as 0 Active REDIFLO 240 INJECTION) directed. dimethyl fumarate Take 120 mg by 7 capsule 0 11/27/2019 Active (TECFIDERA) 120 mg mouth daily. CpDRIndications: MS When script runs (multiple sclerosis) out call in for complete doses. documented as of this encounter (statuses as of 11/28/2019) Active Problems Problem Noted Date S/P total hip arthroplasty 01/08/2019 Obesity (BMI 30-39.9) 01/08/2019 AVN (avascular necrosis of bone) 12/18/2018 Overview: Added automatically from request for orlando nelson [id number] documented as of this encounter (statuses as of 11/28/2019) Social History Tobacco Use Types Packs/Day Years Used Date Former Smoker Smokeless Tobacco: Never Used Alcohol Use Drinks/Week oz/Week Comments No Sex Assigned at Date Recorded Not on file Job Start Date Occupation Industry Not on file Not on file Not on file Travel History Travel Start Travel End No recent travel history available. documented as of this encounter Last Filed Vital Signs Not on filedocumented in this encounter Plan of Treatment Date Type Specialty Care Team Description 01/28/2020 Office Visit Neurology Daniel Taylor MD [address] [place], [place] [address]d. [place] [phone] Name Type Priority Associated Diagnoses Order S chedule CBC WITH DIFFERENTIAL LAB Routine MS (multiple sclero sis) Ordered: 11/28/2019 Health Maintenance Due Date Last Done Comments HEPATITIS C (HCV) SCREEN 1960 DTaP,Tdap,and Td Vaccines (1 - 1969 Tdap) PAP SMEAR 10/13/1979 Breast Cancer Screening 1998 (MAMMOGRAM) COLONOSCOPY 2008 Zoster Recombinant Vaccine 2008 (SHINGRIX) (1 of 2) LUNG CANCER SCREEN: Recommended 2013 for age 55-80 with 30 + pack year history INFLUENZA VACCINE (#1) 2020 Depression Screening 04/24/2020 04/24/2019 PNEUMOCOCCAL 0-64 YEARS COMBINED Aged Out No longer eligible based on SERIES patient's age to complete this topic documented as of this encounter Implants Implanted Type Area Pest Control Operator Device Shelf Model / Identifier Expiration Serial / Lot Date G7 Acetabular Shell 3 Hole Cup Cup Left: Hip Biomet 08/10/2028 [id number] / Implanted: Qty: 1 on 01/08/2019 by Darrian Flynn MD at [facility] N /A / [id number] Head Biolox Delta Option Ceramic 36mm Leonor 16/18 Taper Biomet #[id number] - Sn/A Head Left: Hip Biomet 02/23/2028 [id number] / Implanted: Qty: 1 on 01/08/2019 by Darrian Flynn MD at [facility] N /A / [id number] Neck Adapter Taper 3mm Type 1 Biomet #[id number] - Sn/A Head Left : Hip Biomet 06/08/2028 [id number] / Implanted: Qty: 1 on 01/08/2019 by Darrian Flynn MD at [facility] N /A / [id number] Acetabular Liner High Wall Size D Liner Left: Hip Biomet 08/22/2023 [id number] / Implanted: Qty: 1 on 01/08/2019 by Darrian Flynn MD at [facility] N /A / [id number] Screw, Adolfo Bone 6.5x20 Self-Tap #[id number] - Sna SCREW Left: Hip Adolfo 04/14/202822-5040-965-20 / Implanted: Qty: 1 on 01/08/2019 by Darrian Flynn MD at [facility] N A / [id number] Screw, Adolfo Bone 6.5x15 Self-Tap #[id number] - Sn/A SCREW Left: Hip Adoflo 02/13/202854-7263-106-15 / Implanted: Qty: 1 on 01/08/2019 by Darrian Flynn MD at [facility] N /A / [id number] Screw, Adolfo Bone 6.5x25 Self-Tap #[id number] - Sn/A SCREW Left: Hip Adolfo 11/12/202857-5691-715-25 / Implanted: Qty: 1 on 01/08/2019 by Darrian Flynn MD at [facility] N /A / [id number] Taperloc Complete Micro Primary Femoral Stem Stem Left: Hip Biome t 08/19/2028 [id number] / Implanted: Qty: 1 on 01/08/2019 by Darrian Flynn MD at [facility] N /A / [id number] documented as of this encounter Results Not on filedocumented in this encounter Visit Diagnoses Diagnosis MS (multiple sclerosis) Multiple sclerosis documented in this encounter documented as of this encounter
--- OUTSIDE RECORDS SUMMARY | 2020-02-24 13:52 | XMS REPORT | Summary of Care ---
:1960 Author Organization [facility] Address [address] [place] [id number] Care Team Providers Name Role Phone Zoila Miguelito Alvarez Primary Care Provider Reason for Visit Reason Comments Assessment Encounter Details Date Type Department Care Team Description 11/23/2019 Telephone [facility] Daniel Taylor MD Assessment Neurology-[address] [place] [phone] [address] [place] [address] [phone] Allergies Active Allergy Reactions Severity Noted Date Comments Glatiramer (Copolymer 1) Hives 08/29/2018 documented as of this encounter (statuses as of 11/27/2019) Medications Medication Sig Dispensed Refills Start Date End Date Status levothyroxine 50 Take 50 mcg by 3 08/16/2018 Active mcg tablet mouth. ARIPiprazole 10 mg Take 10 mg by mouth 0 08/25/2018 Active tablet daily. metoprolol tartrate TAKE 1 TABLET BY 3 07/23/2018 Active 25 mg tablet ORAL ROUTE 2 TIMES EVERY DAY QUEtiapine 300 mg 0 08/28/2018 A ctive 24 hr tablet rosuvastatin 20 mg 0 08/27/2018 Active tablet TRAVATAN Z 0.004 % INSTILL 1 DROP INTO 1 07/07/2018 Active ophthalmic drops BOTH EYES AT BEDTIME diazePAM 5 mg TAKE 1 TABLET BY 0 08/23/2018 Active tablet MOUTH DAILY NEEDED FOR ANXIETY. MULTIVITAMIN ORAL Take by mouth. 0 Active calcium Take by mouth. 0 Acti ve carbonate/vitamin D3 (CALCIUM 500 + D, D3, ORAL) pantoprazole 40 mg Take 40 mg by mouth 0 Active EC tablet daily. Venlafaxine 225 mg Take by mouth. 0 Active TR24 traZODONE 50 mg Take 50 mg by mouth 0 12/29/2018 Active tablet at bedtime. acetaminophen-codei Take 1 tablet by 40 tablet 1 01/09/2019 Active ne (TYLENOL-CODEINE mouth every 4 (four) #3) 300-30 mg hours as needed for tabletIndications: Pain (scale 4-6) or Status post total Pain (scale 7-10). replacement of right hip pregabalin 25 mg Take 2 capsules by 180 capsule 1 03/27/2019 Active capsuleIndications: mouth 3 (three) Left inguinal pain, times daily. Status post total replacement of left hip XARELTO 20 mg 0 05/14/2019 Activ e tablet interferon beta-1a, Inject one 0.5 ml 1 Syringe 3 08/04/2019 Active albumin, 44 mcg/0.5 syringe mL injection subcutaneously three times per week. iohexol (OMNIPAQUE Inject 41 mcg as 0 Active REDIFLO 240 directed. INJECTION) documented as of this encounter (statuses as of 11/27/2019) Active Problems Problem Noted Date S/P total hip arthroplasty 01/08/2019 Obesity (BMI 30-39.9) 01/08/2019 AVN (avascular necrosis of bone) 12/18/2018 Overview: Added automatically from request for orlando nelson [id number] documented as of this encounter (statuses as of 11/27/2019) Social History Tobacco Use Types Packs/Day Years Used Date Former Smoker Smokeless Tobacco: Never Used Alcohol Use Drinks/Week oz/Week Comments No Sex Assigned at Date Recorded Not on file Job Start Date Occupation Industry Not on file Not on file Not on file Travel History Travel Start Travel End No recent travel history available. COVID-19 Exposure Response Date Recorded In the last month, have you been in contact with No / Unsure 10/25/2019 1:20 PM CDT someone who was confirmed or suspected to have Coronavirus / COVID-19? documented as of this encounter Last Filed Vital Signs Not on filedocumented in this encounter Plan of Treatment Date Type Specialty Care Team Description 11/27/2019 Office Visit Neurology Daniel Taylor MD [address] [place] [address]. [place], [place] [phone] 01/28/2020 Office Visit Neurology Daniel Taylor MD [address] [place], [place] [address]. [place], [place] [phone] Health Maintenance Due Date Last Done Comments [...] of this encounter Implants Implanted Type Area Housing Counselor Device Shelf Model / Identifier Expiration Serial / Lot Date G7 Acetabular Shell 3 Hole Cup Cup Left: Hip Biomet 08/10/2028 [id number] / Implanted: Qty: 1 on 01/08/2019 by Darrian Flynn MD at [facility] N /A / [id number] Head Biolox Delta Option Ceramic 36mm Leonor 16/18 Taper Biomet #[id number] - Sn/A Head Left: Hip Biomet 02/23/2028 [id number] / Implanted: Qty: 1 on 01/08/2019 by Darrian Flynn MD at [facility] N /A / [id number] Neck Adapter Taper 3mm Type 1 Biomet #[id number] - Sn/A Head Left : Hip Biomet 06/08/2028 [id number] / Implanted: Qty: 1 on 01/08/2019 by Darrian Flynn MD at [facility] N /A / [id number] Acetabular Liner High Wall Size D Liner Left: Hip Biomet 08/22/2023 [id number] / Implanted: Qty: 1 on 01/08/2019 by Darrian Flynn MD at [facility] N /A / [id number] Screw, Adolfo Bone 6.5x20 Self-Tap #[id number] - Sna SCREW Left: Hip Adolfo 04/14/202814-3371-413-20 / Implanted: Qty: 1 on 01/08/2019 by Darrian Flynn MD at [facility] N A / [id number] Screw, Adolfo Bone 6.5x15 Self-Tap #[id number] - Sn/A SCREW Left: Hip Adolfo 02/13/202864-1286-390-15 / Implanted: Qty: 1 on 01/08/2019 by Darrian Flynn MD at [facility] N /A / [id number] Screw, Adolfo Bone 6.5x25 Self-Tap #[id number] - Sn/A SCREW Left: Hip Adolfo 11/12/202858-1379-812-25 / Implanted: Qty: 1 on 01/08/2019 by Darrian Flynn MD at [facility] N /A / [id number] Taperloc Complete Micro Primary Femoral Stem Stem Left: Hip Biome t 08/19/2028 [id number] / Implanted: Qty: 1 on 01/08/2019 by Darrian Flynn MD at [facility] N /A / [id number] documented as of this encounter Results Not on filedocumented in this encounter Insurance Payer Benefit Plan / Group Subscriber ID Effective Dates Phone Address Type AETNA AETNA CHOICE [place] [id number] 2018-Present POS documented as of this encounter
--- OUTSIDE RECORDS SUMMARY | 2020-02-24 13:52 | XMS REPORT | Summary of Care ---
:1960 Author Organization [address] [address] Care Team Providers Name Role Phone Zoila Miguelito Alvarez Primary Care Provider Reason for Visit Reason Comments Medication Assistance Encounter Details Date Type Department Care Team Description 12/04/2019 Telephone [facility] Daniel Taylor, Medication [facility] Clin[facility] [address] [place] [address] [place] [phone] Allergies Active Allergy Reactions Severity Noted Date Comments Glatiramer (Copolymer 1) Hives 08/29/2018 documented as of this encounter (statuses as of 12/04/2019) Medications Medication Sig Dispensed Refills Start Date End Date Status levothyroxine 50 Take 50 mcg 3 08/16/2018 Active mcg tablet by mouth. ARIPiprazole 10 mg Take 10 mg by 0 08/25/2018 Active tablet mouth daily. metoprolol TAKE 1 TABLET 3 07/23/2018 Acti ve tartrate 25 mg BY ORAL ROUTE tablet 2 TIMES EVERY DAY QUEtiapine 300 mg 0 08/28/2018 A ctive 24 hr tablet rosuvastatin 20 mg 0 08/27/2018 Active tablet TRAVATAN Z 0.004 % INSTILL 1 1 07/07/2018 Active ophthalmic drops DROP INTO BOTH EYES AT BEDTIME diazePAM 5 mg TAKE 1 TABLET 0 08/23/2018 A ctive tablet BY MOUTH DAILY NEEDED FOR ANXIETY. MULTIVITAMIN ORAL Take by 0 Ac tive mouth. calcium Take by 0 Active carbonate/vitamin mouth. D3 (CALCIUM 500 + D, D3, ORAL) pantoprazole 40 mg Take 40 mg by 0 Active EC tablet mouth daily. Venlafaxine 225 mg Take by 0 A ctive TR24 mouth. traZODONE 50 mg Take 50 mg by 0 12/29/2018 Active tablet mouth at bedtime. acetaminophen-code Take 1 tablet 40 tablet 1 01/09/2019 Active ine by mouth (TYLENOL-CODEINE every 4 #3) 300-30 mg (four) hours tabletIndications: as needed for Status post total Pain (scale replacement of 4-6) or Pain right hip (scale 7-10). pregabalin 25 mg Take 2 180 capsule 1 03/27/2019 Active capsuleIndications capsules by : Left inguinal mouth 3 pain, Status post (three) times total replacement daily. of left hip XARELTO 20 mg 0 05/14/2019 Activ e tablet iohexol (OMNIPAQUE Inject 41 mcg 0 Active REDIFLO 240 as directed. INJECTION) dimethyl fumarate Take 120 mg 14 capsule 0 12/04/2019 Active (TECFIDERA) 120 mg by mouth CpDRIndications: daily. MS (multiple sclerosis) dimethyl fumarate Take 120 mg 7 capsule 0 11/27/2019 12/04/19 Discontinued (TECFIDERA) 120 mg by mouth 20 ( Reorder) CpDRIndications: daily. When MS (multiple script runs sclerosis) out call in for complete doses. documented as of this encounter (statuses as of 12/04/2019) Active Problems Problem Noted Date S/P total hip arthroplasty 01/08/2019 Obesity (BMI 30-39.9) 01/08/2019 AVN (avascular necrosis of bone) 12/18/2018 Overview: Added automatically from request for orlando omar [id number] documented as of this encounter (statuses as of 12/04/2019) Social History Tobacco Use Types Packs/Day Years [...] 01/28/2020 Office Visit Neurology Daniel Taylor MD [address] [place], [place] [address]d. [place], [place] [phone] Health Maintenance Due Date [...] of this encounter Implants Implanted Type Area Central Supply Supervisor Device Shelf Model / Identifier Expiration Serial / Lot Date G7 Acetabular Shell 3 Hole Cup Cup Left: Hip Biomet 08/10/2028 [id number] / Implanted: Qty: 1 on 01/08/2019 by Darrian Flynn MD at [facility] N /A / [id number] Head Biolox Delta Option Ceramic 36mm Leonor 16/18 Taper Biomet #[id number] - Sn/A Head Left: Hip Biomet 02/23/2028 [id number] / Implanted: Qty: 1 on 01/08/2019 by Darrian Flynn MD at [facility] N /A / [id number] Neck Adapter Taper 3mm Type 1 Biomet #[id number] - Sn/A Head Left : Hip Biomet 06/08/2028 [id number] / Implanted: Qty: 1 on 01/08/2019 by Darrian Flynn MD at [facility] N /A / [id number] Acetabular Liner High Wall Size D Liner Left: Hip Biomet 08/22/2023 [id number] / Implanted: Qty: 1 on 01/08/2019 by Darrian Flynn MD at [facility] N /A / [id number] Screw, Adolfo Bone 6.5x20 Self-Tap #[id number] - Sna SCREW Left: Hip Adolfo 04/14/202828-8118-021-20 / Implanted: Qty: 1 on 01/08/2019 by Darrian Flynn MD at [facility] N A / [id number] Screw, Adolfo Bone 6.5x15 Self-Tap #[id number] - Sn/A SCREW Left: Hip Adolfo 02/13/202839-5560-527-15 / Implanted: Qty: 1 on 01/08/2019 by Darrian Flynn MD at [facility] N /A / [id number] Screw, Adolfo Bone 6.5x25 Self-Tap #[id number] - Sn/A SCREW Left: Hip Adolfo 11/12/202893-8474-055-25 / Implanted: Qty: 1 on 01/08/2019 by Darrian Flynn MD at [facility] N /A / [id number] Taperloc Complete Micro Primary Femoral Stem Stem Left: Hip Biome t 08/19/2028 [id number] / Implanted: Qty: 1 on 01/08/2019 by Darrian Flynn MD at [facility] N /A / [id number] documented as of this encounter Results Not on filedocumented in this encounter Visit Diagnoses Diagnosis MS (multiple sclerosis) Multiple sclerosis documented in this encounter Insurance Payer Benefit Plan / Group Subscriber ID Effective Dates Phone Address Type AETNA AETNA CHOICE [place] [id number] 2018-Present POS documented as of this encounter
--- OUTSIDE RECORDS SUMMARY | 2020-02-24 13:52 | XMS REPORT | Continuity of Care Document ---
:1960 Author Organization [facility] t Address [address] [place] [address] [address] [place] [address] Care Team Providers Name Role Phone Raymon Taylor MD Attending Clinician Problems This patient has no known problems. Allergies, Adverse Reactions, Alerts This patient has no known allergies or adverse reactions. Medications This patient has no known medications. Procedures This patient has no known procedures. Encounters Start End Encounter Admission Attending Care Care Encounter Source Date/Time Date/Time Type Type Clinicians Facility Department ID 2020-01-28 2020-01-28 Telephone Claudia, [facility] [id number] 00:00:00 00:00:00 [facility] [id number] [facility] [id number] [facility] 2020-01-21 2020-01-21 Telephone Claudia [facility] [id number] 00:00:00 00:00:00 Daniel Wooton [id number] [place] [id number] [facility] [phone] [address] 2020-01-04 2020-01-04 Telephone Claudia [facility] [id number] 00:00:00 00:00:00 Daniel Wooton [id number] [place] [id number] [facility]io [phone] [address] 2019-12-31 2019-12-31 Refill lCaudia [facility] [id number] 00:00:00 00:00:00 Daniel Chapman [id number] [place] [id number] [facility] [phone] [address] 2019-12-27 2019-12-27 [place] [facility] [id number] 00:00:00 00:00:00 Daniel Chapman [id number] [place] [id number] [facility] [phone] [address] 2019-12-17 2019-12-17 [place] [facility] [place] [id number] 00:00:00 00:00:00 Daniel Chapman [id number] [place] [id number] [facility] [phone] [address] 2019-12-10 2019-12-10 [facility] [place] [id number] 00:00:00 00:00:00 Daniel Chapman [id number] [place] [id number] [facility] [phone] [address] 2019-12-05 2019-12-05 [place] [facility] [place] [id number] 00:00:00 00:00:00 Daniel Chapman [id number] [place] [id number] [facility] [phone] [address] Results This patient has no known results.
--- OUTSIDE RECORDS SUMMARY | 2020-02-24 13:52 | XMS REPORT | Summary of Care ---
:1960 Author Organization [facility] Address [address] [place] [address] Care Team Providers Name Role Phone Zoila Miguelito Alvaerz Primary Care Provider Reason for Visit Reason Comments Follow-up wants to discuss medications Encounter Details Date Type Department Care Team Description 11/27/2019 Office Visit [facility] Daniel Taylor MS (multiple sclerosis) (Primary Dx); Neurology-Ari Ennis MD Tremor; [address] [place] [address], [address] [place] [phone] Allergies Active Allergy Reactions Severity Noted Date Comments Glatiramer (Copolymer 1) Hives 08/29/2018 documented as of this encounter (statuses as of 12/04/2019) Medications Medication Sig Dispensed Refills Start End Status Date Date levothyroxine 50 Take 50 mcg by 3 08/17/19 Active mcg tablet mouth. 19 ARIPiprazole 10 Take 10 mg by 0 08/26/19 Active mg tablet mouth daily. 19 metoprolol TAKE 1 TABLET BY 3 07/24/19 Ac tive tartrate 25 mg ORAL ROUTE 2 TIMES 19 tablet EVERY DAY QUEtiapine 300 mg 0 08/29/19 Ac tive 24 hr tablet 19 rosuvastatin 20 0 08/28/19 Acti ve mg tablet 19 TRAVATAN Z 0.004 INSTILL 1 DROP 1 07/07/19 Active % ophthalmic INTO BOTH EYES AT 19 drops BEDTIME diazePAM 5 mg TAKE 1 TABLET BY 0 08/24/19 Active tablet MOUTH DAILY 19 NEEDED FOR ANXIETY. MULTIVITAMIN ORAL Take by mouth. 0 Active calcium Take by mouth. 0 Acti ve carbonate/vitamin D3 (CALCIUM 500 + D, D3, ORAL) pantoprazole 40 Take 40 mg by 0 Active mg EC tablet mouth daily. Venlafaxine 225 Take by mouth. 0 Active mg TR24 traZODONE 50 mg Take 50 mg by 0 12/30/19 Active tablet mouth at bedtime. 19 acetaminophen-cod Take 1 tablet by 40 tablet 1 01/10/20 Active eine mouth every 4 19 (TYLENOL-CODEINE (four) hours as #3) 300-30 mg needed for Pain tabletIndications (scale 4-6) or : Status post Pain (scale 7-10). total replacement of right hip pregabalin 25 mg Take 2 capsules by 180 capsule 1 03/27/20 Active capsuleIndication mouth 3 (three) 19 s: Left inguinal times daily. pain, Status post total replacement of left hip XARELTO 20 mg 0 05/14/20 Active tablet 19 iohexol Inject 41 mcg as 0 Act phuc (OMNIPAQUE directed. REDIFLO 240 INJECTION) interferon Inject one 0.5 ml 1 Syringe 3 08/04/19 D iscontinued beta-1a, albumin, syringe 20 020 (S ly effects) 44 mcg/0.5 mL subcutaneously injection three times per week. dimethyl fumarate Take 120 mg by 7 capsule 0 11/27/19 Discontinued (TECFIDERA) 120 mouth daily. When 20 020 (Reorder) mg script runs out CpDRIndications: call in for MS (multiple complete doses. sclerosis) documented as of this encounter (statuses as of 12/04/2019) Active Problems Problem Noted Date S/P total hip arthroplasty 01/08/2019 Obesity (BMI 30-39.9) 01/08/2019 AVN (avascular necrosis of bone) 12/18/2018 Overview: Added automatically from request for orlando nelson [id number] documented as of this encounter (statuses as [...] of this encounter Last Filed Vital Signs Vital Sign Reading Time Taken Comments Blood Pressure 130/78 11/27/2019 4:03 PM CDT Pulse 93 11/27/2019 4:03 PM CDT Temperature - - Respiratory Rate - - Oxygen Saturation - - Inhaled Oxygen Concentration - - Weight 93.4 kg (206 lb) 11/27/2019 4:03 PM CDT Height - - Body Mass Index 35.36 10/25/2019 1:22 PM CDT documented in this encounter Progress Notes Daniel Taylor MD - 11/27/2019 4:00 PM CDT HISTORY OF PRESENT ILLNESS: Nicky Jaquez is a 59 year old female. Chief complaint: MS and headache. History: The patient had recently undergone cataract surgery. I got a request for information in reference to blurred vision from the drug company, however the patient was not having a complication of this side effect with her vision, it was related to cataracts. What she has been suffering with his severe frontal headaches which have gotten worse. With Rebif, there is a 67% approximate risk of developing headaches and they just have gotten worse. She is requesting a medication change. PMH: has a past medical history of Anxiety, Bipolar disorder, Cataracts, bilateral, Depression, Esophageal reflux, Glaucoma, Hyperlipidemia, Hypertension, MS (multiple sclerosis), Tachycardia, and Thyroid disease. Current Outpatient Medications: dimethyl fumarate (TECFIDERA) 120 mg CpDR, Take 120 mg by mouth daily., Disp: 14 capsule, Rfl: 0 iohexol (OMNIPAQUE REDIFLO 240 INJECTION), Inject 41 mcg as directed., Disp: , Rfl: XARELTO 20 mg tablet, , Disp: , Rfl: pregabalin 25 mg capsule, Take 2 capsules by mouth 3 (three) times daily., Disp: 180 capsule, Rfl: 1 acetaminophen-codeine (TYLENOL-CODEINE #3) 300-30 mg tablet, Take 1 tablet by mouth every 4 (four) hours as needed for Pain (scale 4-6) or Pain (scale 7- 10)., Disp: 40 tablet, Rfl: 1 traZODONE 50 mg tablet, Take 50 mg by mouth at bedtime., Disp: , Rfl: 0 ARIPiprazole 10 mg tablet, Take 10 mg by mouth daily., Disp: , Rfl: 0 calcium carbonate/vitamin D3 (CALCIUM 500 + D, D3, ORAL), Take by mouth., Disp: , Rfl: diazePAM 5 mg tablet, TAKE 1 TABLET BY MOUTH DAILY NEEDED FOR ANXIETY., Disp: , Rfl: 0 levothyroxine 50 mcg tablet, Take 50 mcg by mouth., Disp: , Rfl: 3 metoprolol tartrate 25 mg tablet, TAKE 1 TABLET BY ORAL ROUTE 2 TIMES EVERY DAY, Disp: , Rfl: 3 MULTIVITAMIN ORAL, Take by mouth., Disp: , Rfl: pantoprazole 40 mg EC tablet, Take 40 mg by mouth daily., Disp: , Rfl: QUEtiapine 300 mg 24 hr tablet, , Disp: , Rfl: rosuvastatin 20 mg tablet, , Disp: , Rfl: TRAVATAN Z 0.004 % ophthalmic drops, INSTILL 1 DROP INTO BOTH EYES AT BEDTIME, Disp: , Rfl: 1 Venlafaxine 225 mg TR24, Take by mouth., Disp: , Rfl: Social History Socioeconomic History Marital status: Spouse name: Not on file Number of children: Not on file Years of education: Not on file Highest education level: Not on file Occupational History Not on file Social Needs Financial resource strain: Not on file Food insecurity: Worry: Not on file Inability: Not on file Transportation needs: Medical: Not on file Non-medical: Not on file Tobacco Use Smoking status: Former Smoker Smokeless tobacco: Never Used Substance and Sexual Activity Alcohol use: No Drug use: No Sexual activity: Not on file Lifestyle Physical activity: Days per week: Not on file Minutes per session: Not on file Stress: Not on file Relationships Social connections: Talks on phone: Not on file Gets together: Not on file Attends rastafarian service: Not on file Active member of club or organization: Not on file Attends meetings of clubs or organizations: Not on file Relationship status: Not on file Intimate partner violence: Fear of current or ex partner: Not on file Emotionally abused: Not on file Physically abused: Not on file Forced sexual activity: Not on file Other Topics Concern Not on file Social History Narrative Not on file Vital signs: BP 130/78 | Pulse 93 | Wt 206 lb (93.4 kg) | BMI 35.36 kg/m General findings: patient is alert and oriented times 3, cooperative during the examination. The pupils are round and reactive to light and she does not have a visual field defect. She does have somewhat saccadic pursuit movements with no worsening of diplopia on left lateral gaze. Very slight mask facies. No new focal weakness of the arms, no obvious focal weakness involving the legs. Upper extremity reflexes one plus, left patellar one plus and ankle jerk was trace. No head titubation today, she does have some minor difficulty in coming to a standing position but she can walk without a walker, and assumes a wider than normal stance. ASSESSMENT AND RECOMMENDATIONS: ICD-10-CM ICD-9-CM 1. MS (multiple sclerosis) G35 340 2. Tremor R25.1 781.0 3. Complicated headache syndromes G44.59 339.44 Impression: She had already identified possible candidates switch her insurance company would approve, these included Tekfidera, aubagio, and also Lemtrada. The letter to the medications do have about a 20% headache risk, and in my opinion these medications are more for significant relapsing and remitting MS or even progressive MS, and I don't think the patient falls into those categories. She was interested in an oral medication, she has researched potential side effects of the medications and I pointed out to her that Tekfidera is not noted as a headache causing medication. She thinks that she wants to try that. I had recommended that she also get a TB skin test, she will need CBC so that we can see what the neutrophil count is and also I am recommending she get a KEVIN virus titer. We will see ifwe can order this to the [facility] computer, and if not then I can probably get her primary care physician to order it outside of the [facility]. She is going to get her blood drawn, I wrote her for the initial 120 mg dosage of the medication which will then be increased to 240 mg twice per day. 14 minutesof the 25 minute office visit was spent discussing the various MS treatments and which one would likely be the most beneficial for her, with option also included that would have her go without medication. She definitely did not want to choose that option. Creation of the note was aided by utilizing a cut/paste operation of text from a Microsoft Word template created with CL[employer]. The text was dictated into the template via Dragon Naturally Speaking. documented in this encounter Plan of Treatment Date Type Specialty Care Team Description 01/28/2020 Office Visit Neurology Daniel Taylor MD [address] [place] [address]. [place] [phone] Health Maintenance Due Date Last Done [...] of this encounter Implants Implanted Type Area Personal Care Aide Device Shelf Model / Identifier Expiration Serial / Lot Date G7 Acetabular Shell 3 Hole Cup Cup Left: Hip Biomet 08/10/2028 [id number] / Implanted: Qty: 1 on 01/08/2019 by Darrian Flynn MD at [facility] N /A / [id number] Head Biolox Delta Option Ceramic 36mm Leonor 16/18 Taper Biomet #650-1057 - Sn/A Head Left: Hip Biomet 02/23/2028 650-1057 / Implanted: Qty: 1 on 01/08/2019 by Darrian Flynn MD at [facility] N /A / [id number] Neck Adapter Taper 3mm Type 1 Biomet #650-1065 - Sn/A Head Left : Hip Biomet 06/08/2028 650-1065 / Implanted: Qty: 1 on 01/08/2019 by Darrian Flynn MD at [facility] N /A / [id number] Acetabular Liner High Wall Size D Liner Left: Hip Biomet 08/22/2023 [id number] / Implanted: Qty: 1 on 01/08/2019 by Darrian Flynn MD at [facility] N /A / [id number] Screw, Adolfo Bone 6.5x20 Self-Tap #[id number] - Sna SCREW Left: Hip Adolfo 04/14/202801-4362-876-20 / Implanted: Qty: 1 on 01/08/2019 by Darrian Flynn MD at [facility] N A / [id number] Screw, Adolfo Bone 6.5x15 Self-Tap #[id number] - Sn/A SCREW Left: Hip Adolfo 02/13/202855-4768-903-15 / Implanted: Qty: 1 on 01/08/2019 by Darrian Flynn MD at [facility] N /A / [id number] Screw, Adolfo Bone 6.5x25 Self-Tap #[id number] - Sn/A SCREW Left: Hip Adolfo 11/12/202877-7192-844-25 / Implanted: Qty: 1 on 01/08/2019 by Darrian Flynn MD at [facility] N /A / [id number] Taperloc Complete Micro Primary Femoral Stem Stem Left: Hip Biome t 08/19/2028 [id number] / Implanted: Qty: 1 on 01/08/2019 by Darrian Flynn MD at [facility] N /A / [id number] documented as of this encounter Results Not on filedocumented in this encounter Visit Diagnoses Diagnosis MS (multiple sclerosis) - Primary Multiple sclerosis Tremor Abnormal involuntary movements Complicated headache syndromes Other complicated headache syndrome documented in this encounter documented as of this encounter"
--- OUTSIDE RECORDS SUMMARY | 2020-02-24 13:53 | XMS REPORT | Summary of Care ---
:1960 Author Organization [facility] Address [address] [place] [address] Care Team Providers Name Role Phone Zoila Miguelito Alvarez Primary Care Provider Reason for Visit Reason Comments Results results being faxed to Dr. Alex murillo Encounter Details Date Type Department Care Team Description 12/05/2019 Telephone [facility] Daniel Taylor, Result s (results being Neurology-Ari SCHAEFFER faxed to Dr. Taylor) [address] [place], [place] [address], [address] [place] [phone] Allergies Active Allergy Reactions Severity Noted Date Comments Glatiramer (Copolymer 1) Hives 08/29/2018 documented as of this encounter (statuses as of 12/12/2019) Medications Medication Sig Dispensed Refills Start Date [...] directed. dimethyl fumarate Take 120 mg by 14 capsule 0 12/04/2019 Active (TECFIDERA) 120 mg mouth daily. CpDRIndications: MS (multiple sclerosis) documented as of this encounter (statuses as of 12/12/2019) Active Problems Problem Noted Date S/P total hip arthroplasty 01/08/2019 Obesity (BMI 30-39.9) 01/08/2019 AVN (avascular necrosis of bone) 12/18/2018 Overview: Added automatically from request for orlando nelson [id number] documented as of this encounter (statuses as of 12/12/2019) Social History Tobacco Use Types Packs/Day Years [...] 01/28/2020 Office Visit Neurology Daniel Taylor MD [address] [place] [address]. [place] [phone] Health Maintenance Due Date Last Done [...] of this encounter Implants Implanted Type Area Necktie Turner Device Shelf Model / Identifier Expiration Serial / Lot Date G7 Acetabular Shell 3 Hole Cup Cup Left: Hip Biomet 08/10/2028 [id number] / Implanted: Qty: 1 on 01/08/2019 by Darrian Flynn MD at [facility] N /A / [id number] Head Biolox Delta Option Ceramic 36mm Leonor 16/18 Taper Biomet #650-1057 - Sn/A Head Left: Hip Biomet 02/23/2028 650-1057 / Implanted: Qty: 1 on 01/08/2019 by Darrian Flynn MD at [facility] N /A / [id number] Neck Adapter Taper 3mm Type 1 Biomet #650-1065 - Sn/A Head Left : Hip Biomet 06/08/2028 650-1065 / Implanted: Qty: 1 on 01/08/2019 by Darrian Flynn MD at [facility] N /A / [id number] Acetabular Liner High Wall Size D Liner Left: Hip Biomet 08/22/2023 [id number] / Implanted: Qty: 1 on 01/08/2019 by Darrian Flynn MD at [facility] N /A / [id number] Screw, Adolfo Bone 6.5x20 Self-Tap #[id number] - Sna SCREW Left: Hip Adolfo 04/14/2028 [id number] / Implanted: Qty: 1 on 01/08/2019 by Darrian Flynn MD at [facility] N A / [id number] Screw, Adolfo Bone 6.5x15 Self-Tap #[id number] - Sn/A SCREW Left: Hip Adolfo 02/13/202840-2241-115-15 / Implanted: Qty: 1 on 01/08/2019 by Darrian Flynn MD at [facility] N /A / [id number] Screw, Adolfo Bone 6.5x25 Self-Tap #[id number] - Sn/A SCREW Left: Hip Adolfo 11/12/202881-1592-150-25 / Implanted: Qty: 1 on 01/08/2019 by Darrian Flynn MD at [facility] N /A / [id number] Taperloc Complete Micro Primary Femoral Stem Stem Left: Hip Biome t 08/19/2028 [id number] / Implanted: Qty: 1 on 01/08/2019 by Darrian Flynn MD at [facility] N /A / [id number] documented as of this encounter Results Not on filedocumented in this encounter Insurance Payer Benefit Plan / Group Subscriber ID Effective Dates Phone Address Type AETNA AETNA CHOICE [place] [id number] 2018-Present POS documented as of this encounter
--- OUTSIDE RECORDS SUMMARY | 2020-02-24 13:53 | XMS REPORT | Summary of Care ---
:1960 Author Organization [facility] Address [address] [place] [address] Care Team Providers Name Role Phone Zoila Miguelito Alvarez Primary Care Provider Reason for Visit Reason Comments Results results being faxed to Dr. Alex murillo Encounter Details Date Type Department Care Team Description 12/05/2019 Telephone [facility] Daniel Taylor, Result s (results being Neurology-Ari SCHAEFFER faxed to Dr. Taylor) [address] [place], [place] [address]. [address], [address] [place] [phone] Allergies Active Allergy Reactions Severity Noted Date Comments Glatiramer (Copolymer 1) Hives 08/29/2018 documented as of this encounter (statuses as of 12/07/2019) Medications Medication Sig Dispensed Refills Start Date [...] as of this encounter (statuses as of 12/07/2019) Active Problems Problem Noted Date S/P total hip arthroplasty 01/08/2019 Obesity (BMI 30-39.9) 01/08/2019 AVN (avascular necrosis of bone) 12/18/2018 Overview: Added automatically from request for orlando nelson [id number] documented as of this encounter (statuses as of 12/07/2019) Social History Tobacco Use Types Packs/Day Years [...] 01/28/2020 Office Visit Neurology Daniel Taylor MD [address] [place] [address]. [place] [phone] Health Maintenance Due Date Last Done [...] of this encounter Implants Implanted Type Area Drafting Engineer Device Shelf Model / Identifier Expiration Serial / Lot Date G7 Acetabular Shell 3 Hole Cup Cup Left: Hip Biomet 08/10/2028 [id number] / Implanted: Qty: 1 on 01/08/2019 by Darrian Flynn MD at [facility] N /A / [id number] Head Biolox Delta Option Ceramic 36mm Leonor 16/18 Taper Biomet #650-1057 - Sn/A Head Left: Hip Biomet 02/23/2028 650-1057 / Implanted: Qty: 1 on 01/08/2019 by Darrian Flynn MD at [facility] N /A / [id number] Neck Adapter Taper 3mm Type 1 Biomet #650-1065 - Sn/A Head Left : Hip Biomet 06/08/2028 650-1065 / Implanted: Qty: 1 on 01/08/2019 by Darrian Flynn MD at [facility] N /A / [id number] [id number] Acetabular Liner High Wall Size D Liner Left: Hip Biomet 08/22/2023 [id number] / Implanted: Qty: 1 on 01/08/2019 by Darrian Flynn MD at [facility] N /A / [id number] Screw, Adolfo Bone 6.5x20 Self-Tap #[id number] - Sna SCREW Left: Hip Adolfo 04/14/2028 [id number] / Implanted: Qty: 1 on 01/08/2019 by Darrian Flynn MD at [facility] N A / [id number] Screw, Adolfo Bone 6.5x15 Self-Tap #[id number] - Sn/A SCREW Left: Hip Adolfo 02/13/202889-9256-159-15 / Implanted: Qty: 1 on 01/08/2019 by Darrian Flynn MD at [facility] N /A / [id number] Screw, Adolfo Bone 6.5x25 Self-Tap #[id number] - Sn/A SCREW Left: Hip Adolfo 11/12/202868-9448-197-25 / Implanted: Qty: 1 on 01/08/2019 by Darrian Flynn MD at [facility] N /A / [id number] Taperloc Complete Micro Primary Femoral Stem Stem Left: Hip Biome t 08/19/2028 [id number] / Implanted: Qty: 1 on 01/08/2019 by Darrian Flynn MD at [facility] N /A / [id number] documented as of this encounter Results Not on filedocumented in this encounter Insurance Payer Benefit Plan / Group Subscriber ID Effective Dates Phone Address Type AETNA AETNA CHOICE [place] [id number] 2018-Present POS documented as of this encounter
--- OUTSIDE RECORDS SUMMARY | 2020-02-24 13:53 | XMS REPORT | Summary of Care ---
:1960 Author Organization [facility] Address [address] [place] [address] Care Team Providers Name Role Phone Zoila Miguelito Alvarez Primary Care Provider Reason for Visit Reason Comments Rx Concern/Question PA needed Encounter Details Date Type Department Care Team Description 12/05/2019 Telephone [facility] Daniel Taylor, Rx Con cern/Question Neurology-Ari SCHAEFFER (PA needed ) [address] [place], [place] [address], [address] [place] [phone] Allergies Active Allergy Reactions Severity Noted Date Comments Glatiramer (Copolymer 1) Hives 08/29/2018 documented as of this encounter (statuses as of 12/06/2019) Medications Medication Sig Dispensed Refills Start Date [...] as of this encounter (statuses as of 12/06/2019) Active Problems Problem Noted Date S/P total hip arthroplasty 01/08/2019 Obesity (BMI 30-39.9) 01/08/2019 AVN (avascular necrosis of bone) 12/18/2018 Overview: Added automatically from request for orlando nelson [id number] documented as of this encounter (statuses as of 12/06/2019) Social History Tobacco Use Types Packs/Day Years [...] 01/28/2020 Office Visit Neurology Daniel Taylor MD [address] [place], [place] [address]d. [place], [place] [phone] Health Maintenance Due Date [...] of this encounter Implants Implanted Type Area Diesel Engine Pipe Fitter Device Shelf Model / Identifier Expiration Serial / Lot Date G7 Acetabular Shell 3 Hole Cup Cup Left: Hip Biomet 08/10/2028 [id number] / Implanted: Qty: 1 on 01/08/2019 by Darrian Flynn MD at [facility] N /A / [id number] Head Biolox Delta Option Ceramic 36mm Leonor 16/18 Taper Biomet #650-1057 - Sn/A Head Left: Hip Biomet 02/23/2028 650-1057 / Implanted: Qty: 1 on 01/08/2019 by Darrian Flynn MD at [facility] N /A / [id number] Neck Adapter Taper 3mm Type 1 Biomet #650-1065 - Sn/A Head Left : Hip Biomet 06/08/2028 650-1065 / Implanted: Qty: 1 on 01/08/2019 by Darrian Flynn MD at [facility] N /A / [id number] G7 Acetabular Liner High Wall Size D Liner Left: Hip Biomet 08/22/2023 [id number] / Implanted: Qty: 1 on 01/08/2019 by Darrian Flynn MD at [facility] N /A / [id number] Screw, Adolfo Bone 6.5x20 Self-Tap #[id number] - Sna SCREW Left: Hip Adolfo 04/14/2028 [id number] / Implanted: Qty: 1 on 01/08/2019 by Darrian Flynn MD at [facility] N A / [id number] Screw, Adolfo Bone 6.5x15 Self-Tap #[id number] - Sn/A SCREW Left: Hip Adolfo 02/13/202800-8188-436-15 / Implanted: Qty: 1 on 01/08/2019 by Darrian Flynn MD at [facility] N /A / [id number] Screw, Adolfo Bone 6.5x25 Self-Tap #[id number] - Sn/A SCREW Left: Hip Adolfo 11/12/202894-0936-176-25 / Implanted: Qty: 1 on 01/08/2019 by Darrian Flynn MD at [facility] N /A / [id number] Taperloc Complete Micro Primary Femoral Stem Stem Left: Hip Biome t 08/19/2028 [id number] / Implanted: Qty: 1 on 01/08/2019 by Darrian Flynn MD at [facility] N /A / [id number] documented as of this encounter Results Not on filedocumented in this encounter Insurance Payer Benefit Plan / Group Subscriber ID Effective Dates Phone Address Type AETNA AETNA CHOICE POS II [id number] 2018-Present POS documented as of this encounter
--- OUTSIDE RECORDS SUMMARY | 2020-02-24 13:53 | XMS REPORT | Summary of Care ---
:1960 Author Organization [facility] Address [address] [place] [address] Care Team Providers Name Role Phone Zoila Miguelito Alvarez Primary Care Provider Reason for Visit Reason Comments Follow-up wants to discuss medications Encounter Details Date Type Department Care Team Description 11/27/2019 Office Visit [facility] Daniel Taylor MS (multiple sclerosis) (Primary Dx); Neurology-Ari Ennis MD Tremor; [address] [place] [address], [address] [place] [phone] Allergies Active Allergy Reactions [...] Added automatically from request for orlando nelson [id number] documented as of this encounter (statuses as [...] file Gets together: Not on file Attends sabianist service: Not on file Active member of [...] see ifwe can order this to the [facility] computer, and if not then I can probably get her primary care physician to order it outside of the [facility]. She is going to get her blood [...] from a Microsoft Word template created with [employer]. The text was dictated into the template via Dragon Naturally Speaking. documented in this encounter Plan of Treatment Date Type Specialty Care Team Description 01/28/2020 Office Visit Neurology Daniel Taylor MD [address] [place] [address]. [place] [phone] Health Maintenance Due Date Last Done [...] of this encounter Implants Implanted Type Area Casing Inspector Device Shelf Model / Identifier Expiration Serial / Lot Date G7 Acetabular Shell 3 Hole Cup Cup Left: Hip Biomet 08/10/2028 [id number] / Implanted: Qty: 1 on 01/08/2019 by Darrian Flynn MD at [facility] N /A / [id number] Head Biolox Delta Option Ceramic 36mm Leonor 16/18 Taper Biomet #650-1057 - Sn/A Head Left: Hip Biomet 02/23/2028 [id number] / Implanted: Qty: 1 on 01/08/2019 by Darrian Flynn MD at [facility] N /A / [id number] Neck Adapter Taper 3mm Type 1 Biomet #650-1065 - Sn/A Head Left : Hip Biomet 06/08/2028 [id number] / Implanted: Qty: 1 on 01/08/2019 by Darrian Flynn MD at [facility] N /A / [id number] Acetabular Liner High Wall Size D Liner Left: Hip Biomet 08/22/2023 [id number] / Implanted: Qty: 1 on 01/08/2019 by Darrian Flynn MD at [facility] N /A / [id number] Screw, Adolfo Bone 6.5x20 Self-Tap #[id number] - Sna SCREW Left: Hip Adolfo 04/14/202890-8905-443-20 / Implanted: Qty: 1 on 01/08/2019 by Darrian Flynn MD at [facility] N A / [id number] Screw, Adolfo Bone 6.5x15 Self-Tap #[id number] - Sn/A SCREW Left: Hip Adolfo 02/13/202829-8723-370-15 / Implanted: Qty: 1 on 01/08/2019 by Darrian Flynn MD at [facility] N /A / [id number] Screw, Adolfo Bone 6.5x25 Self-Tap #[id number] - Sn/A SCREW Left: Hip Adolfo 11/12/202839-0424-398-25 / Implanted: Qty: 1 on 01/08/2019 by Darrian Flynn MD at [facility] N /A / [id number] Taperloc Complete Micro Primary Femoral Stem Stem Left: Hip Biome t 08/19/2028 [id number] / Implanted: Qty: 1 on 01/08/2019 by Darrian Flynn MD at [facility] N /A / [id number] documented as of this encounter Results Not on filedocumented in this encounter Visit Diagnoses Diagnosis MS (multiple sclerosis) - Primary Multiple sclerosis Tremor Abnormal involuntary movements Complicated headache syndromes Other complicated headache syndrome documented in this encounter documented as of this encounter"
--- OUTSIDE RECORDS SUMMARY | 2020-02-24 13:53 | XMS REPORT | Summary of Care ---
:1960 Author Organization [facility] Address [address] [place] [address] Care Team Providers Name Role Phone Zoila Miguelito Alvarez Primary Care Provider Reason for Visit Reason Comments Results results being faxed to Dr. Alex murillo Encounter Details Date Type Department Care Team Description 12/05/2019 Telephone [facility] Daniel Taylor, Result s (results being Neurology-Ari SCHAEFFER faxed to Dr. Taylor) [address] [place], [place] [address]d. Drive, [address] [place] [phone] Allergies Active Allergy Reactions Severity Noted [...] Added automatically from request for orlando nelson [id number] documented as of this encounter (statuses as [...] 01/28/2020 Office Visit Neurology Daniel Taylor MD [address] [place] [address]. [place] [phone] Health Maintenance Due Date Last Done [...] of this encounter Implants Implanted Type Area Pharmaceutical Service Representative Device Shelf Model / Identifier Expiration Serial / Lot Date G7 Acetabular Shell 3 Hole Cup Cup Left: Hip Biomet 08/10/2028 [id number] / Implanted: Qty: 1 on 01/08/2019 by Darrian Flynn MD at [facility] N /A / [id number] Head Biolox Delta Option Ceramic 36mm Leonor 16/18 Taper Biomet #650-1057 - Sn/A Head Left: Hip Biomet 02/23/2028 650-1057 / Implanted: Qty: 1 on 01/08/2019 by Darrian Flynn MD at [facility] N /A / [id number] Neck Adapter Taper 3mm Type 1 Biomet #650-1065 - Sn/A Head Left : Hip Biomet 06/08/2028 650-1065 / Implanted: Qty: 1 on 01/08/2019 by Darrian Flynn MD at [facility] N /A / [id number] Acetabular Liner High Wall Size D Liner Left: Hip Biomet 08/22/2023 [id number] / Implanted: Qty: 1 on 01/08/2019 by Darrian Flynn MD at [facility] N /A / [id number] Screw, Adolfo Bone 6.5x20 Self-Tap #[id number] - Sna SCREW Left: Hip Adolfo 04/14/2028 [id number] / Implanted: Qty: 1 on 01/08/2019 by Darrian Flynn MD at [facility] N A / [id number] Screw, Adolfo Bone 6.5x15 Self-Tap #[id number] - Sn/A SCREW Left: Hip Adolfo 02/13/202872-0897-888-15 / Implanted: Qty: 1 on 01/08/2019 by Darrian Flynn MD at [facility] N /A / [id number] Screw, Adolfo Bone 6.5x25 Self-Tap #[id number] - Sn/A SCREW Left: Hip Adolfo 11/12/202803-6772-378-25 / Implanted: Qty: 1 on 01/08/2019 by Darrian Flynn MD at [facility] N /A / [id number] Taperloc Complete Micro Primary Femoral Stem Stem Left: Hip Biome t 08/19/2028 [id number] / Implanted: Qty: 1 on 01/08/2019 by Darrian Flynn MD at [facility] N /A / [id number] documented as of this encounter Results Not on filedocumented in this encounter Insurance Payer Benefit Plan / Group Subscriber ID Effective Dates Phone Address Type AETNA AETNA CHOICE POS [place] [id number] 2018-Present POS documented as of this encounter
--- OUTSIDE RECORDS SUMMARY | 2020-02-24 13:54 | XMS REPORT | Summary of Care ---
:1960 Author Organization [facility] Address [address] [place] [address] Care Team Providers Name Role Phone Zoila Miguelito Alvarez Primary Care Provider Reason for Visit Reason Comments Assessment weakness Rx Concern/Question Notification Encounter Details Date Type Department Care Team Description 12/27/2019 Telephone [facility] Daniel Taylor, Assess ment (weakness); Neurology-Ari SCHAEFFER Rx Concern/Question; [address] [place], [place] [address]. [address], [address] [place] [phone] Allergies Active Allergy Reactions Severity Noted Date Comments Glatiramer (Copolymer 1) Hives 08/29/2018 documented as of this encounter (statuses as of 01/03/2020) Medications Medication Sig Dispensed Refills Start Date [...] directed. INJECTION) dimethyl fumarate Take 120 mg 30 capsule 0 01/01/2020 Active (TECFIDERA) 120 mg by mouth CpDRIndications: daily. MS (multiple sclerosis) dimethyl fumarate Take 120 mg 14 capsule 0 12/04/2019 01/01/20 Discontinued (TECFIDERA) 120 mg by mouth 20 ( Reorder) CpDRIndications: daily. MS (multiple sclerosis) dimethyl fumarate Take 1 60 capsule 0 12/17/2019 01/01/20 Discontinued (TECFIDERA) 240 mg capsule by 20 (Dose capsule mouth 2 (two) adjust ment) times daily. documented as of this encounter (statuses as of 01/03/2020) Active Problems Problem Noted Date S/P total hip arthroplasty 01/08/2019 Obesity (BMI 30-39.9) 01/08/2019 AVN (avascular necrosis of bone) 12/18/2018 Overview: Added automatically from request for orlando omar [id number] documented as of this encounter (statuses as of 01/03/2020) Social History Tobacco Use Types Packs/Day Years Used Date Former Smoker Smokeless Tobacco: Never Used Alcohol Use Drinks/Week oz/Week Comments No Sex Assigned at Date Recorded Not on file documented as of this encounter Last Filed Vital Signs Not on filedocumented in this encounter Miscellaneous Notes Telephone Encounter - Daniel Taylor MD - 01/02/2020 1:26 PM CDTnoted Telephone Encounter - Devon Arzate - 01/02/2020 8:19 AM Kristi Jaquez is a 59 year old female requesting clinic be expecting a fax for prior authorization of medication Telephone Encounter - Meri Santillan LVN - 01/01/2020 11:32 [address]. Taylor, Spoke to patient. She stated she did okay on the Tecfidera 120 mg Daily. Called in 30 day supply. Instructed her to keep in touch with us and let us know how she is doing. Stated she will take it for 2weeks and then go do lab work. Just an FYI. elephone Encounter - Daniel Taylor MD - 12/31/2019 3:59 PM CDTMaybe she should stay on the 120 mg and see if she is doing any better. If this is a treatment failure, in order to pick a different medication, I am probably going to need some help from someone like Dr. Mendenhall. elephone Encounter - Meri Santillan LVN - 12/28/2019 2:22 PM CDTDrBrigitte Taylor, Spoke to patient and she is reporting bilateral arms and bilateral legs are weak along with hand tremors since Tuesday. States it started after she increased Tecfidera from 120 mg daily to 240 mg BID. Please review and advise. Telephone Encounter - Keily Bhagat - 12/27/2019 4:22 PM SHAYYamirah Jaquez is a 59 year old female Patient is having general body weakness, since prescriptiondimethyl fumarate (TECFIDERA) was changedto 240mg. She is wanting to know if this is a possible side effect. Please contact patient at [phone] (home) documented in this encounter Plan of Treatment Date Type Specialty Care Team Description 01/28/2020 Office Visit Neurology Daniel Taylor MD [address] [place] [address]. [place] [phone] Health Maintenance Due Date Last Done Comments HEPATITIS C (HCV) SCREEN 1960 PNEUMOCOCCAL 0-64 YEARS COMBINED SERIES (1 of 3 - 1964 PCV13) DTaP,Tdap,and Td Vaccines (1 - Tdap) 1977 PAP SMEAR 10/13/1979 Breast Cancer Screening (MAMMOGRAM) 1998 COLON CANCER SCREENING ANNUAL FIT/FOBT 2008 COLON CANCER SCREENING FIT DNA EVERY 3 YEARS 2008 COLON CANCER SCREENING SIGMOIDOSCOPY EVERY 5 YEARS 2008 COLONOSCOPY 2008 Colorectal Cancer Screening 2008 Zoster Recombinant Vaccine (SHINGRIX) (1 of 2) 2008 LUNG CANCER SCREEN: Recommended for age 55-80 with 30 2013 + pack year history INFLUENZA VACCINE (#1) 2020 Depression Screening 04/24/2020 04/24/2019 documented as of this encounter Implants Implanted Type Area Environmental Scientist Device Shelf Model / Identifier Expiration Serial / Lot Date G7 Acetabular Shell 3 Hole Cup Cup Left: Hip Biomet 08/10/2028 [id number] / Implanted: Qty: 1 on 01/08/2019 by Darrian Flynn MD at [facility] N /A / [id number] Head Biolox Delta Option Ceramic 36mm Leonor 16/18 Taper Biomet #650-1057 - Sn/A Head Left: Hip Biomet 02/23/2028 650-1057 / Implanted: Qty: 1 on 01/08/2019 by Darrian Flynn MD at [facility] N /A / [id number] Neck Adapter Taper 3mm Type 1 Biomet #650-1065 - Sn/A Head Left : Hip Biomet 06/08/2028 650-1065 / Implanted: Qty: 1 on 01/08/2019 by Darrian Flynn MD at [facility] N /A / [id number] Acetabular Liner High Wall Size D Liner Left: Hip Biomet 08/22/2023 [id number] / Implanted: Qty: 1 on 01/08/2019 by Darrian Flynn MD at [facility] N /A / [id number] Screw, Adolfo Bone 6.5x20 Self-Tap #[id number] - Sna SCREW Left: Hip Adolfo 04/14/202839-9083-540-20 / Implanted: Qty: 1 on 01/08/2019 by Darrian Flynn MD at [facility] N A / [id number] Screw, Adolfo Bone 6.5x15 Self-Tap #06-6771-938-15 - Sn/A SCREW Left: Hip Adolfo 02/13/202899-0091-394-15 / Implanted: Qty: 1 on 01/08/2019 by Darrian Flynn MD at [facility] N /A / [id number] Screw, Adolfo Bone 6.5x25 Self-Tap #[id number] - Sn/A SCREW Left: Hip Adolfo 11/12/202828-3302-571-25 / Implanted: Qty: 1 on 01/08/2019 by Darrian Flynn MD at [facility] N /A / [id number] Taperloc Complete Micro Primary Femoral Stem Stem Left: Hip Biome t 08/19/2028 [id number] / Implanted: Qty: 1 on 01/08/2019 by Darrian Flynn MD at [facility] N /A / [id number] documented as of this encounter Results Not on filedocumented in this encounter Visit Diagnoses Diagnosis MS (multiple sclerosis) Multiple sclerosis documented in this encounter Insurance Payer Benefit Plan / Group Subscriber ID Effective Dates Phone Address Type AETNA AETNA CHOICE POS II [id number] 2018-Present POS documented as of this encounter
--- OUTSIDE RECORDS SUMMARY | 2020-02-24 13:54 | XMS REPORT | Summary of Care ---
:1960 Author Organization [facility] Address [address] [place] [address] Care Team Providers Name Role Phone Miguelito Cummings Antonio Primary Care Provider Reason for Visit Reason Comments Refill Request Encounter Details Date Type Department Care Team Description 12/17/[address] [facility] Daniel Taylor MD Refill Request Neurology-[address] [place] [phone] [address] [place] [address] [facility] [phone] Allergies Active Allergy Reactions Severity Noted Date Comments Glatiramer (Copolymer 1) Hives 08/29/2018 documented as of this encounter (statuses as of 12/17/2019) Medications Medication Sig Dispensed Refills Start Date [...] mg mouth daily. CpDRIndications: MS (multiple sclerosis) dimethyl fumarate Take 1 capsule 60 capsule 0 12/17/2019 Active (TECFIDERA) 240 mg by mouth 2 (two) capsule times daily. documented as of this encounter (statuses as of 12/17/2019) Active Problems Problem Noted Date S/P total hip arthroplasty 01/08/2019 Obesity (BMI 30-39.9) 01/08/2019 AVN (avascular necrosis of bone) 12/18/2018 Overview: Added automatically from request for orlando marianoy [id number] documented as of this encounter (statuses as of 12/17/2019) Social History Tobacco Use Types Packs/Day Years Used Date Former Smoker Smokeless Tobacco: Never Used Alcohol Use Drinks/Week oz/Week Comments No Sex Assigned at Date Recorded Not on file documented as of this encounter Last Filed Vital Signs Not on filedocumented in this encounter Miscellaneous Notes Telephone Encounter - Meri Santillan LVN - 12/17/2019 2:57 PM CDTReceived verbal order from Dr. Taylor to increase dosage of Tecfidera to 240mg BID. CBC was also ordered. Spoke to patient and let her know of the dosage change and the CBC order. Patient verbalized understanding. Tecfidera was called into pharmacy. Telephone Encounter - Huy Stauffer - 12/17/2019 12:04 PM MATILDETLjarocholeighton Jaquez is a 59 year old female Patient was calling to speak with the nurse she states that there was a problem with her medication and also she only received a Wk supply and is needing a refill on dimethyl fumarate (TECFIDERA) 120 mg. Please give hear call to discuss [phone] (home) documented in this encounter Plan of Treatment Date Type Specialty Care Team Description 01/28/2020 Office Visit Neurology Daniel Taylor MD [address] [place], [place] [address]d. [place] [phone] Name Type Priority Associated Diagnoses Order S chedule CBC WITH DIFF LAB Routine MS (multiple sclerosis) Exp ected: 12/17/2019, Expires: 12/16/2020 Health Maintenance Due Date Last Done Comments HEPATITIS C (HCV) SCREEN 1960 DTaP,Tdap,and Td Vaccines (1 - 1977 Tdap) PAP SMEAR 10/13/1979 Breast Cancer Screening 1998 (MAMMOGRAM) COLON CANCER SCREENING ANNUAL 2008 FIT/FOBT COLON CANCER SCREENING FIT DNA 2008 EVERY 3 YEARS COLON CANCER SCREENING 2008 SIGMOIDOSCOPY EVERY 5 YEARS COLONOSCOPY 2008 Colorectal Cancer Screening 2008 Zoster Recombinant Vaccine 2008 (SHINGRIX) (1 of 2) LUNG CANCER SCREEN: Recommended 2013 for age 55-80 with 30 + pack year history INFLUENZA VACCINE (#1) 2020 Depression Screening 04/24/2020 04/24/2019 PNEUMOCOCCAL 0-64 YEARS COMBINED Aged Out No longer eligible based on SERIES patient's age to complete this topic documented as of this encounter Implants Implanted Type Area Die Cutter Apprentice Device Shelf Model / Identifier Expiration Serial / Lot Date G7 Acetabular Shell 3 Hole Cup Cup Left: Hip Biomet 08/10/2028 [id number] / Implanted: Qty: 1 on 01/08/2019 by Darrian Flynn MD at [facility] N /A / [id number] Head Biolox Delta Option Ceramic 36mm Leonor 16/18 Taper Biomet #650-1057 - Sn/A Head Left: Hip Biomet 02/23/2028 650-1057 / Implanted: Qty: 1 on 01/08/2019 by Darrian Flynn MD at [facility] N /A / [id number] Neck Adapter Taper 3mm Type 1 Biomet #650-1065 - Sn/A Head Left : Hip Biomet 06/08/2028 650-1065 / Implanted: Qty: 1 on 01/08/2019 by Darrian Flynn MD at [facility] N /A / [id number] Acetabular Liner High Wall Size D Liner Left: Hip Biomet 08/22/2023 [id number] / Implanted: Qty: 1 on 01/08/2019 by Darrian Flynn MD at [facility] N /A / [id number] Screw, Adolfo Bone 6.5x20 Self-Tap #[id number] - Sna SCREW Left: Hip Adolfo 04/14/202822-8273-101-20 / Implanted: Qty: 1 on 01/08/2019 by Darrian Flynn MD at [facility] N A / [id number] Screw, Adolfo Bone 6.5x15 Self-Tap #[id number] - Sn/A SCREW Left: Hip Adolfo 02/13/2028 [id number] / Implanted: Qty: 1 on 01/08/2019 by Darrian Flynn MD at [facility] N /A / [id number] Screw, Adolfo Bone 6.5x25 Self-Tap #[id number] - Sn/A SCREW Left: Hip Adolfo 11/12/202885-0192-977-25 / Implanted: Qty: 1 on 01/08/2019 by Darrian Flynn MD at [facility] N /A / [id number] Taperloc Complete Micro Primary Femoral Stem Stem Left: Hip Biome t 08/19/2028 [id number] / Implanted: Qty: 1 on 01/08/2019 by Darrian Flynn MD at [facility] N /A / [id number] documented as of this encounter Results Not on filedocumented in this encounter Visit Diagnoses Diagnosis MS (multiple sclerosis) - Primary Multiple sclerosis documented in this encounter Insurance Payer Benefit Plan / Group Subscriber ID Effective Dates Phone Address Type AETNA AETNA CHOICE POS II [id number] 2018-Present POS documented as of this encounter
--- OUTSIDE RECORDS SUMMARY | 2020-02-24 13:54 | XMS REPORT | Summary of Care ---
:1960 Author Organization [facility] Address [address] [place] [address] Care Team Providers Name Role Phone Cummings Miguelito Alvarez Primary Care Provider Reason for Visit Reason Comments Erroneous encounter-disregard Encounter Details Date Type Department Care Team Description 01/21/2020 Telephone [facility] Daniel aTylor Errone ous Neurology-Ari SCHAEFFER encounter-disregard [address] [place], [place] [address]. [address], [address] [place] [phone] Allergies Active Allergy Reactions Severity Noted Date Comments Glatiramer (Copolymer 1) Hives 08/29/2018 documented as of this encounter (statuses as of 01/21/2020) Medications Medication Sig Dispensed Refills Start Date [...] REDIFLO 240 INJECTION) directed. dimethyl fumarate Take 1 capsule 30 capsule 3 01/15/2020 Active (TECFIDERA) 240 mg by mouth 2 (two) capsule times daily. documented as of this encounter (statuses as of 01/21/2020) Active Problems Problem Noted Date S/P total hip arthroplasty 01/08/2019 Obesity (BMI 30-39.9) 01/08/2019 AVN (avascular necrosis of bone) 12/18/2018 Overview: Added automatically from request for orlando nelson [id number] documented as of this encounter (statuses as of 01/21/2020) Social History Tobacco Use Types Packs/Day Years Used Date Former Smoker Smokeless Tobacco: Never Used Alcohol Use Drinks/Week oz/Week Comments No Sex Assigned at Date Recorded Not on file documented as of this encounter Last Filed Vital Signs Not on filedocumented in this encounter Plan of Treatment Date Type Specialty Care Team Description 02/04/2020 Office Visit Neurology Daniel Taylor MD [address] [place] [address]. [place] [phone] Health Maintenance Due Date Last Done [...] of this encounter Implants Implanted Type Area Administrative Services Coordinator Device Shelf Model / Identifier Expiration Serial / Lot Date G7 Acetabular Shell 3 Hole Cup Cup Left: Hip Biomet 08/10/2028 [id number] / Implanted: Qty: 1 on 01/08/2019 by Darrian Flynn MD at [facility] N /A / [id number] Head Biolox Delta Option Ceramic 36mm Leonor 16/18 Taper Biomet #650-1057 - Sn/A Head Left: Hip Biomet 02/23/2028 650-1057 / Implanted: Qty: 1 on 01/08/2019 by Darrian Flynn MD at [facility] N /A / [id number] Neck Adapter Taper 3mm Type 1 Biomet #650-1065 - Sn/A Head Left : Hip Biomet 06/08/2028 650-1065 / Implanted: Qty: 1 on 01/08/2019 by Darrian Flynn MD at [facility] N /A / [id number] Acetabular Liner High Wall Size D Liner Left: Hip Biomet 08/22/2023 [id number] / Implanted: Qty: 1 on 01/08/2019 by Darrian Flynn MD at [facility] N /A / [id number] Screw, Adolfo Bone 6.5x20 Self-Tap #[id number] - Sna SCREW Left: Hip Adolfo 04/14/2028 [id number] / Implanted: Qty: 1 on 01/08/2019 by Darrian Flynn MD at [facility] N A / [id number] Screw, Adolfo Bone 6.5x15 Self-Tap #[id number] - Sn/A SCREW Left: Hip Adolfo 02/13/202887-7631-195-15 / Implanted: Qty: 1 on 01/08/2019 by Darrian Flynn MD at [facility] N /A / [id number] Screw, Adolfo Bone 6.5x25 Self-Tap #[id number] - Sn/A SCREW Left: Hip Adolfo 11/12/202860-9959-513-25 / Implanted: Qty: 1 on 01/08/2019 by Darrian Flynn MD at [facility] N /A / [id number] Taperloc Complete Micro Primary Femoral Stem Stem Left: Hip Biome t 08/19/2028 [id number] / Implanted: Qty: 1 on 01/08/2019 by Darrian Flynn MD at [facility] N /A / [id number] documented as of this encounter Results Not on filedocumented in this encounter Insurance Payer Benefit Plan / Group Subscriber ID Effective Dates Phone Address Type AETNA AET[place] CHOICE [place] II [id number] 2018-Present POS documented as of this encounter
--- OUTSIDE RECORDS SUMMARY | 2020-02-24 13:54 | XMS REPORT | Summary of Care ---
:1960 Author Organization [facility] Address [address] [place] [address] Care Team Providers Name Role Phone Miguelito Cummings Primary Care Provider Reason for Visit Reason Comments Refill Request Encounter Details Date Type Department Care Team Description 12/10/2019 Refill [facility] Daniel Taylor MD Refill Request Neurology-[address] [place] [phone] [address] [place] [address] [facility] [phone] Allergies Active Allergy Reactions Severity Noted Date [...] Added automatically from request for orlando nelson [id number] documented as of this encounter (statuses as [...] 01/28/2020 Office Visit Neurology Daniel Taylor MD [address] [place] [address]. [place], [place] [phone] Health Maintenance Due Date [...] of this encounter Implants Implanted Type Area Electrical Calibrator Device Shelf Model / Identifier Expiration Serial / Lot Date G7 Acetabular Shell 3 Hole Cup Cup Left: Hip Biomet 08/10/2028 [id number] / Implanted: Qty: 1 on 01/08/2019 by Darrian Flynn MD at [facility] N /A / [id number] Head Biolox Delta Option Ceramic 36mm Leonor 16/18 Taper Biomet #650-1057 - Sn/A Head Left: Hip Biomet 02/23/2028 [id number] / Implanted: Qty: 1 on 01/08/2019 by Darrian Flynn MD at [facility] N /A / [id number] Neck Adapter Taper 3mm Type 1 Biomet #650-1065 - Sn/A Head Left : Hip Biomet 06/08/2028 [id number] / Implanted: Qty: 1 on 01/08/2019 by Darrian Flynn MD at [facility] N /A / [id number] Acetabular Liner High Wall Size D Liner Left: Hip Biomet 08/22/2023 [id number] / Implanted: Qty: 1 on 01/08/2019 by Darrian Flynn MD at [facility] N /A / [id number] Screw, Adolfo Bone 6.5x20 Self-Tap #[id number] - Sna SCREW Left: Hip Adolfo 04/14/2028 [id number] / Implanted: Qty: 1 on 01/08/2019 by Darrian Flynn MD at [facility] N A / [id number] Screw, Adolfo Bone 6.5x15 Self-Tap #[id number] - Sn/A SCREW Left: Hip Adolfo 02/13/202822-0348-071-15 / Implanted: Qty: 1 on 01/08/2019 by Darrian Flynn MD at [facility] N /A / [id number] Screw, Adolfo Bone 6.5x25 Self-Tap #[id number] - Sn/A SCREW Left: Hip Adolfo 11/12/202881-9839-739-25 / Implanted: Qty: 1 on 01/08/2019 by Darrian Flynn MD at [facility] N /A / [id number] Taperloc Complete Micro Primary Femoral Stem Stem Left: Hip Biome t 08/19/2028 [id number] / Implanted: Qty: 1 on 01/08/2019 by Darrian Flynn MD at [facility] N /A / [id number] documented as of this encounter Results Not on filedocumented in this encounter Visit Diagnoses Diagnosis MS (multiple sclerosis) Multiple sclerosis documented in this encounter Insurance Payer Benefit Plan / Group Subscriber ID Effective Dates Phone Address Type AETNA AETNA CHOICE POS II [id number] 2018-Present POS documented as of this encounter
--- OUTSIDE RECORDS SUMMARY | 2020-02-24 13:54 | XMS REPORT | Summary of Care ---
:1960 Author Organization [facility] Address [address] [place] [address] Care Team Providers Name Role Phone Miguelito Cummings Primary Care Provider Reason for Visit Reason Comments Rx Concern/Question Tecfidera Encounter Details Date Type Department Care Team Description 01/04/2020 Telephone [facility] Daniel Taylor, Rx Con cern/Question Neurology-Ari SCHAEFFER (Tecfidera) [address] [place], [place] [address]. Drive, [address] [place] [phone] Allergies Active Allergy Reactions Severity Noted Date Comments Glatiramer (Copolymer 1) Hives 08/29/2018 documented as of this encounter (statuses as of 01/15/2020) Medications Medication Sig Dispensed Refills Start Date [...] 240 as directed. INJECTION) dimethyl fumarate Take 1 30 capsule 3 01/15/2020 Active (TECFIDERA) 240 mg capsule by capsule mouth 2 (two) times daily. dimethyl fumarate Take 120 mg 30 capsule 0 01/01/2020 01/15/20 Discontinued (TECFIDERA) 120 mg by mouth 20 ( Dose CpDRIndications: daily. adj ustment) MS (multiple sclerosis) documented as of this encounter (statuses as of 01/15/2020) Active Problems Problem Noted Date S/P total hip arthroplasty 01/08/2019 Obesity (BMI 30-39.9) 01/08/2019 AVN (avascular necrosis of bone) 12/18/2018 Overview: Added automatically from request for orlando marianoy [id number] documented as of this encounter (statuses as of 01/15/2020) Social History Tobacco Use Types Packs/Day Years Used Date Former Smoker Smokeless Tobacco: Never Used Alcohol Use Drinks/Week oz/Week Comments No Sex Assigned at Date Recorded Not on file documented as of this encounter Last Filed Vital Signs Not on filedocumented in this encounter Miscellaneous Notes Telephone Encounter - Meri Santillan LVN - 01/15/2020 8:44 AM CDTOrder placed for Tecfidera 240 BID. Patient notified. elephone Encounter - Daniel Taylor MD - 01/12/2020 11:23 AM CDTIf she wants to take the standard dosage of the Tecfidera, that is ok. elephone Encounter - Meri Santillan LVN - 01/11/2020 2:[address] RICKY Taylor for Tecfidera 120 mg daily was received 12-06-19. Spoke to patient and she states she does not want to lower the dosage of the medication from Tecfidera 240 mg BID to Tecfidera 120 mg daily as per our conversation on 12-28-19. Patient states she spoke to someone that told her the symptoms she was having was actually a MS flare up and not related to the medication. Reports she has been continuing to take 240 mg BID and feels just fine. Our last conversation was 10 days ago but insists she has calledeveryday for 3 weeks and has not spoke to anyone. Do you want to increase the Tecfidera back to 240 mg BID. Please review and advise. I did try 3 time and a total of over an hour on the phone with [facility] t o trying to find out why need a PA for the Tecfidera when one was received on 12-06-19 for the 120 mg. I was never able to get through. But we will need another PA if we increase. elephone Encounter - Meri Santillan LVN - 01/11/2020 1:39 PM CDTAttempted to contact patient. Left VM with direct clinic number. Telephone Encounter - ButchLeesa - 01/07/2020 4:04 PM MATILDETLamirah Jaquez is a 59 year old female patient calling back. Please call regarding MS medications and PA that need to be done. Patient would also like to speak with nurse regarding medication dosage. [facility] - RICKY [place]iday - [address] [place] [address] elephone Encounter - Devon Arzate - 01/07/2020 1:36 PM SHAYYamirah Jaquez is a 59 year old female ptis calling regarding the PA for dimethyl fumarate (TECFIDERA .PLease contact them at [phone] (home) [facility]/pharmacy #[address] [place] [address] elephone Encounter - Hong Kolb - 01/04/2020 12:58 PM Jigarleighton Jaquez is a 59 year old female ptis calling regarding the PA for dimethyl fumarate (TECFIDERA .PLease contact them at [phone] (home) [facility]/pharmacy #[address] [place] [address] documented in this encounter Plan of Treatment Date Type Specialty Care Team Description 01/22/2020 Office Visit Neurology Daniel Taylor MD [address] [place], [place] [address]. [place], [place] [phone] Health Maintenance Due Date [...] of this encounter Implants Implanted Type Area Gasket Supervisor Device Shelf Model / Identifier Expiration Serial / Lot Date G7 Acetabular Shell 3 Hole Cup Cup Left: Hip Biomet 08/10/2028 [id number] / Implanted: Qty: 1 on 01/08/2019 by Darrian Flynn MD at [facility] N /A / [id number] Head Biolox Delta Option Ceramic 36mm Leonor 16/18 Taper Biomet #650-1057 - Sn/A Head Left: Hip Biomet 02/23/2028 650-1057 / Implanted: Qty: 1 on 01/08/2019 by Darrian Flynn MD at [facility] N /A / [id number] Neck Adapter Taper 3mm Type 1 Biomet #650-1065 - Sn/A Head Left : Hip Biomet 06/08/2028 650-1065 / Implanted: Qty: 1 on 01/08/2019 by Darrian Flynn MD at [facility] N /A / [id number] [id number] Acetabular Liner High Wall Size D Liner Left: Hip Biomet 08/22/2023 [id number] / Implanted: Qty: 1 on 01/08/2019 by Darrian Flynn MD at [facility] N /A / [id number] Screw, Adolfo Bone 6.5x20 Self-Tap #[id number] - Sna SCREW Left: Hip Adolfo 04/14/202884-1981-326-20 / Implanted: Qty: 1 on 01/08/2019 by Darrian Flynn MD at [facility] N A / [id number] Screw, Adolfo Bone 6.5x15 Self-Tap #[id number] - Sn/A SCREW Left: Hip Adolfo 02/13/2028 [id number] / Implanted: Qty: 1 on 01/08/2019 by Darrian Flynn MD at [facility] N /A / [id number] Screw, Adolfo Bone 6.5x25 Self-Tap #[id number] - Sn/A SCREW Left: Hip Adolfo 11/12/202893-5036-110-25 / Implanted: Qty: 1 on 01/08/2019 by Darrian Flynn MD at [facility] N /A / [id number] Taperloc Complete Micro Primary Femoral Stem Stem Left: Hip Biome t 08/19/2028 [id number] / Implanted: Qty: 1 on 01/08/2019 by Darrian Flynn MD at [facility] N /A / [id number] documented as of this encounter Results Not on filedocumented in this encounter Insurance Payer Benefit Plan / Group Subscriber ID Effective Dates Phone Address Type AETNA AETNA CHOICE POS II [id number] 2018-Present POS documented as of this encounter
--- OUTSIDE RECORDS SUMMARY | 2020-02-24 13:54 | XMS REPORT | Summary of Care ---
:1960 Author Organization [facility] Address [address] [place] [address] Care Team Providers Name Role Phone Miguelito Cummings Primary Care Provider Reason for Visit Reason Comments Refill Request Encounter Details Date Type Department Care Team Description 12/31/2019 Refill [facility] Daniel Taylor MD Refill Request Neurology-[address] [place] [phone] [address] [place] [address] [facility] [phone] Allergies Active Allergy Reactions Severity Noted Date Comments Glatiramer (Copolymer 1) Hives 08/29/2018 documented as of this encounter (statuses as of 01/02/2020) Medications Medication Sig Dispensed Refills Start Date [...] directed. dimethyl fumarate Take 120 mg by 30 capsule 0 01/01/2020 Active (TECFIDERA) 120 mg mouth daily. CpDRIndications: MS (multiple sclerosis) documented as of this encounter (statuses as of 01/02/2020) Active Problems Problem Noted Date S/P total hip arthroplasty 01/08/2019 Obesity (BMI 30-39.9) 01/08/2019 AVN (avascular necrosis of bone) 12/18/2018 Overview: Added automatically from request for orlando nelson [id number] documented as of this encounter (statuses as of 01/02/2020) Social History Tobacco Use Types Packs/Day Years Used Date Former Smoker Smokeless Tobacco: Never Used Alcohol Use Drinks/Week oz/Week Comments No Sex Assigned at Date Recorded Not on file documented as of this encounter Last Filed Vital Signs Not on filedocumented in this encounter Plan of Treatment Date Type Specialty Care Team Description 01/28/2020 Office Visit Neurology Daniel Taylor MD [address] [place] [address]. [place] [phone] Health Maintenance Due Date Last Done [...] of this encounter Implants Implanted Type Area Envelope Stuffer Device Shelf Model / Identifier Expiration Serial / Lot Date G7 Acetabular Shell 3 Hole Cup Cup Left: Hip Biomet 08/10/2028 [id number] / Implanted: Qty: 1 on 01/08/2019 by Darrian Flynn MD at [facility] N /A / [id number] Head Biolox Delta Option Ceramic 36mm Leonor 16/18 Taper Biomet #650-1057 - Sn/A Head Left: Hip Biomet 02/23/2028 650-1057 / Implanted: Qty: 1 on 01/08/2019 by Darrian Flynn MD at [facility] N /A / [id number] Neck Adapter Taper 3mm Type 1 Biomet #650-1065 - Sn/A Head Left : Hip Biomet 06/08/2028 650-1065 / Implanted: Qty: 1 on 01/08/2019 by Darrian Flynn MD at [facility] N /A / [id number] [id number] Acetabular Liner High Wall Size D Liner Left: Hip Biomet 08/22/2023 [id number] / Implanted: Qty: 1 on 01/08/2019 by Darrian Flynn MD at [facility] N /A / [id number] Screw, Adolfo Bone 6.5x20 Self-Tap #[id number] - Sna SCREW Left: Hip Adolfo 04/14/2028 [id number] / Implanted: Qty: 1 on 01/08/2019 by Darrian Flynn MD at [facility] N A / [id number] Screw, Adolfo Bone 6.5x15 Self-Tap #[id number] - Sn/A SCREW Left: Hip Adolfo 02/13/202873-9920-641-15 / Implanted: Qty: 1 on 01/08/2019 by Darrian Flynn MD at [facility] N /A / [id number] Screw, Adolfo Bone 6.5x25 Self-Tap #[id number] - Sn/A SCREW Left: Hip Adolfo 11/12/202840-6541-666-25 / Implanted: Qty: 1 on 01/08/2019 by Darrian Flynn MD at [facility] N /A / [id number] Taperloc Complete Micro Primary Femoral Stem Stem Left: Hip Biome t 08/19/2028 [id number] / Implanted: Qty: 1 on 01/08/2019 by Darrian Flynn MD at [facility] N /A / [id number] documented as of this encounter Results Not on filedocumented in this encounter Insurance Payer Benefit Plan / Group Subscriber ID Effective Dates Phone Address Type AETNA AETNA CHOICE POS II [id number] 2018-Present POS documented as of this encounter
--- OUTSIDE RECORDS SUMMARY | 2020-02-24 13:55 | XMS REPORT | Summary of Care ---
:1960 Author Organization [facility] Address [address] [place], [place] [address] Care Team Providers Name Role Phone Miguelito Cummings Primary Care Provider Reason for Visit Reason Comments Rx Concern/Question Notification Closing Encounter Encounter Details Date Type Department Care Team Description 01/28/2020 Telephone [facility] Daniel Taylor, Rx Con cern/Question; Neurology- Bautista SCHAEFFER Notification (Closing [facility] [address] [place] [address]. Encounter) [address] [place] [address] [address] [place], [place] [phone] [address] [phone] Allergies Active Allergy Reactions Severity Noted Date Comments Glatiramer (Copolymer 1) Hives 08/29/2018 documented as of this encounter (statuses as of 02/11/2020) Medications Medication Sig Dispensed Refills Start Date [...] as directed. INJECTION) dimethyl fumarate Take 1 60 capsule 2 01/28/2020 Active (TECFIDERA) 240 mg capsule by capsule mouth 2 (two) times daily. dimethyl fumarate Take 1 30 capsule 3 01/15/2020 01/28/20 Discontinued (TECFIDERA) 240 mg capsule by 20 (Reorder) capsule mouth 2 (two) times daily. documented as of this encounter (statuses as of 02/11/2020) Active Problems Problem Noted Date S/P total hip arthroplasty 01/08/2019 Obesity (BMI 30-39.9) 01/08/2019 AVN (avascular necrosis of bone) 12/18/2018 Overview: Added automatically from request for orlando omar [id number] documented as of this encounter (statuses as of 02/11/2020) Social History Tobacco Use Types Packs/Day Years Used Date Former Smoker Smokeless Tobacco: Never Used Alcohol Use Drinks/Week oz/Week Comments No Sex Assigned at Date Recorded Not on file documented as of this encounter Last Filed Vital Signs Not on filedocumented in this encounter Miscellaneous Notes Telephone Encounter - Melany Ruiz RN - 02/11/2020 6:29 PM CDTAccess Center: [facility] Open Encounter Maintenance Chart Review: patient notified medication called to pharmacy. Nurse Note: RN closing encounter in EPIC r/t clinical action items completed. Melany Ruiz RN [facility] Access Center Triage Nurse elephone Encounter - Meri Santillan LVN - 01/28/2020 4:33 PM CDTSpoke to Miriam at [facility] cancelled Tecfidera 240 mg 30 tabs with 3 refills. States it was sent out on 01-15-20 and they sent 60 tabs instead of 30. Called in Tecfidera 240 mg 60 tabs with 2 refills. elephone Encounter - Meri Santillan LVN - 01/28/2020 4:21 PM CDTSpoke to Ariadna at [facility] [phone]. She states patient's PA for the Tecfidera 120 mg also coversthe Tecfidera 240 mg d/t wild card. Which means any strength of Tecfidera is covered under PA. She can hand picker a refill on 02-09-20. Patient notified. documented in this encounter Plan of Treatment Health Maintenance Due Date Last Done Comments [...] of this encounter Implants Implanted Type Area Refining Equipment Operator Device Shelf Model / Identifier Expiration Serial / Lot Date G7 Acetabular Shell 3 Hole Cup Cup Left: Hip Biomet 08/10/2028 [id number] / Implanted: Qty: 1 on 01/08/2019 by Darrian Flynn MD at [facility] N /A / [id number] Head Biolox Delta Option Ceramic 36mm Leonor 16/18 Taper Biomet #650-1057 - Sn/A Head Left: Hip Biomet 02/23/2028 650-1057 / Implanted: Qty: 1 on 01/08/2019 by Darrian Flynn MD at [facility] N /A / [id number] Neck Adapter Taper 3mm Type 1 Biomet #650-1065 - Sn/A Head Left : Hip Biomet 06/08/2028 650-1065 / Implanted: Qty: 1 on 01/08/2019 by Darrian Flynn MD at [facility] N /A / [id number] G7 Acetabular Liner High Wall Size D Liner Left: Hip Biomet 08/22/2023 [id number] / Implanted: Qty: 1 on 01/08/2019 by Darrian Flynn MD at [facility] N /A / [id number] Screw, Adolfo Bone 6.5x20 Self-Tap #[id number] - Sna SCREW Left: Hip Adolfo 04/14/202846-6124-327-20 / Implanted: Qty: 1 on 01/08/2019 by Darrian Flynn MD at [facility] N A / [id number] Screw, Adolfo Bone 6.5x15 Self-Tap #[id number] - Sn/A SCREW Left: Hip Adolfo 02/13/202830-8618-729-15 / Implanted: Qty: 1 on 01/08/2019 by Darrian Flynn MD at [facility] N /A / [id number] Screw, Adolfo Bone 6.5x25 Self-Tap #[id number] - Sn/A SCREW Left: Hip Adolfo 11/12/2028 [id number] / Implanted: Qty: 1 on 01/08/2019 by Darrian Flynn MD at [facility] N /A / [id number] Taperloc Complete Micro Primary Femoral Stem Stem Left: Hip Biome t 08/19/2028 [id number] / Implanted: Qty: 1 on 01/08/2019 by Darrian Flynn MD at [facility] N /A / [id number] documented as of this encounter Results Not on filedocumented in this encounter Visit Diagnoses Diagnosis MS (multiple sclerosis) - Primary Multiple sclerosis documented in this encounter Insurance Payer Benefit Plan / Group Subscriber ID Effective Dates Phone Address Type AETNA AETNA CHOICE POS II [id number] 2018-Present POS documented as of this encounter
--- NOTE | 2020-02-24 15:18 | RAD REPORT ---
EXAM DESCRIPTION: US - Extremity Venous [employer] - 02/24/2020 2:56 pm CLINICAL HISTORY: Swelling;Pain COMPARISON: None. TECHNIQUE: Real-time sonographic evaluation of the right lower extremity deep venous systems was per formed. FINDINGS: Normal compressibility, flow augmentation, phasic flow and spontaneous flow are identified in the right lower extremity common femoral, superficial femoral, popliteal and posterior tibial vei ns. No intraluminal filling defects seen. IMPRESSION: No DVT in the right lower extremity.
--- NOTE | 2020-02-24 15:20 | RAD REPORT ---
EXAM DESCRIPTION: RAD - Chest Single View - 02/24/2020 2:59 pm CLINICAL HISTORY: SWELLING, smoking history, shortness of breath, lower extremity swelling COMPARISON: Portable June 2019, CT chest June 2019 TECHNIQUE: AP portable chest image was obtained 02/24/2020 2:59 pm . FINDINGS: Lung volumes are low but clear. Low lung volume accentuates the baseline interstitial maggie misa. No significant failure or edema. No focal mass or consolidation identified. Heart and vasculatur e are normal. No measurable pleural effusion and no pneumothorax. No acute bony abnormality seen. No acute aortic findings suspected. IMPRESSION: No acute cardiopulmonary process. Interstitial pattern is accentuated by the low lung volumes. True or significant change from June is not suspected.
[2020-02-24 15:21] LABS: Protime INR 1.02
[2020-02-24 15:22] LABS: Absolute Lymphocytes (CBC) 1.5 K/uL (0.7-4.9); Basophils % 0.8 % (0-1.3); Hematocrit 35.9 % (36.0-45.0); MPV 8.6 fL (7.6-11.3); RBC Red Blood Cell Count 4.03 M/uL (3.86-4.86)
[2020-02-24 15:55] LABS: Blood Morphology Comment NOT SEEN (NOT SEEN); Platelet Estimate ADEQ; Platelets, Giant NOTED; Polychromasia SLIGHT
[2020-02-24 15:56] LABS: ALT/SGPT 60 U/L (12-78); AST/SGOT 47 U/L (15-37); Albumin 3.1 g/dL (3.4-5.0); Alkaline Phosphatase 64 U/L (45-117); BUN Blood Urea Nitrogen 8 mg/dL (7-18); Bicarbonate 27 mmol/L (21-32); Bilirubin Direct 0.1 mg/dL (0-0.2); Bilirubin Total 0.4 mg/dL (0.2-1.0); Glucose Level 176 mg/dL (74-106); Magnesium 1.9 mg/dL (1.8-2.4); NT PRO-BNP 202 pg/mL (<125); Potassium 3.5 mmol/L (3.5-5.1); Protein, Total 6.8 g/dL (6.4-8.2); Sodium Level 138 mmol/L (136-145); Troponin (Emerg Dept Use Only) < 0.02 ng/mL (0.0-0.045)
--- NOTE | 2020-02-24 16:04 | EDPHYS ---
Physician Documentation [facility] Name: Nicky Jaquez Age: 59 yrs Sex: Female : 1960 Arrival Date: 02/24/2020 Time: 13:51 Bed 19 Private MD: REMINGTON Physician Frank Mccabe HPI: 02/23 14:36 This 59 yrs old Female presents to ER via Wheelchair with complaints of Leg snw Pain. 14:36 The patient presents with pain, swelling. The complaints affect the below the knee. snw Context: The problem was sustained at home, resulted from an unknown cause, the patient can fully bear weight, pt had DVT in right leg one year ago. Stopped Xarelto in October 2019, on Metoprolol for rate control. Pt here with edema to RLE, tachycardia. Onset: The symptoms/episode began/occurred suddenly. Modifying factors: The symptoms are alleviated by nothing. Severity of symptoms: At their worst the symptoms were moderate, "repeat performance". The patient has experienced a previous episode, last year. It is unknown whether or not the patient has recently seen a physician, Sees Dr. Cummings. Historical: - Allergies: 14:01 Copaxone; ll1 - PMHx: 14:01 Bipolar disorder; Glaucoma; Multiple Sclerosis; ll1 - Immunization history:: Flu vaccine is up to date. - Social history:: Smoking status: Patient/guardian denies using tobacco, the patient reports quitting approximately 10 years ago. ROS: 14:35 Constitutional: Negative for fever, chills, and weight loss, Eyes: Negative for injury, snw pain, redness, and discharge, ENT: Negative for injury, pain, and discharge, Neck: Negative for injury, pain, and swelling, Cardiovascular: Negative for chest pain, palpitations, and edema x edema noted to right lower extremity Respiratory: Negative for shortness of breath, cough, wheezing, and pleuritic chest pain, Abdomen/GI: Negative for abdominal pain, nausea, vomiting, diarrhea, and constipation, Back: Negative for injury and pain, : Negative for injury, bleeding, discharge, and swelling, MS/Extremity: Negative for injury and deformity, Skin: Negative for injury, rash, and discoloration, Neuro: Negative for headache, weakness, numbness, tingling, and seizure, Psych: Negative for depression, anxiety, suicide ideation, homicidal ideation, and hallucinations. Exam: 14:35 Constitutional: This is a well developed, well nourished patient who is awake, alert, snw and in no acute distress. Head/Face: Normocephalic, atraumatic. Eyes: Pupils equal round and reactive to light, extra-ocular motions intact. Lids and lashes normal. Conjunctiva and sclera are non-icteric and not injected. Cornea within normal limits. Periorbital areas with no swelling, redness, or edema. ENT: Nares patent. No nasal discharge, no septal abnormalities noted. Tympanic membranes are normal and external auditory canals are clear. Oropharynx with no redness, swelling, or masses, exudates, or evidence of obstruction, uvula midline. Mucous membranes moist. Neck: Trachea midline, no thyromegaly or masses palpated, and no cervical lymphadenopathy. Supple, full range of motion without nuchal rigidity, or vertebral point tenderness. No Meningismus. Chest/axilla: Normal chest wall appearance and motion. Nontender with no deformity. No lesions are appreciated. Cardiovascular: Regular rate and rhythm with a normal S1 and S2. No gallops, murmurs, or rubs. Normal PMI, no JVD. No pulse deficits. Respiratory: Lungs have equal breath sounds bilaterally, clear to auscultation and percussion. No rales, rhonchi or wheezes noted. No increased work of breathing, no retractions or nasal flaring. Abdomen/GI: Soft, non-tender, with normal bowel sounds. No distension or tympany. No guarding or rebound. No evidence of tenderness throughout. Back: No spinal tenderness. No costovertebral tenderness. Full range of motion. Skin: Warm, dry with normal turgor. Normal color with no rashes, no lesions, and no evidence of cellulitis. Neuro: Awake and alert, GCS 15, oriented to person, place, time, and situation. Cranial nerves II-XII grossly intact. Motor strength 5/5 in all extremities. Sensory grossly intact. Cerebellar exam normal. Normal gait. Psych: Awake, alert, with orientation to person, place and time. Behavior, mood, and affect are within normal limits. 14:35 Musculoskeletal/extremity: Extremities: grossly normal except: noted in the right leg with edema below the knee: Vital Signs: 14:00 BP 129 / 70; Pulse 105; Resp 18; Temp 98.1(O); Pulse Ox 95% ; Weight 89.36 kg; Height 5 ll1 ft. 4 in. (162.56 cm); Pain 3/10; 14:20 BP 124 / 62 LA (auto/reg); Pulse 103; Pulse Ox 96% on R/A; jp3 15:37 BP 134 / 61; Pulse 106; Resp 20; Pulse Ox 99% on R/A; em 16:28 BP 145 / 62; Pulse 105; Resp 18; Pulse Ox 96% on R/A; em 14:00 Body Mass Index 33.81 (89.36 kg, 162.56 cm) ll1 MDM: 14:20 Patient medically screened. snw 16:07 Data reviewed: vital signs, nurses notes. Data interpreted: Pulse oximetry: on room air snw is 99 %. Interpretation: normal. Counseling: I had a detailed discussion with the patient and/or guardian regarding: the historical points, exam findings, and any diagnostic results supporting the discharge/admit diagnosis, the presence of at least one elevated blood pressure reading (>120/80) during this emergency department visit, lab results, radiology results, the need for outpatient follow up, to return to the emergency department if symptoms worsen or persist or if there are any questions or concerns that arise at home. Special discussion: Based on the history and exam findings, there is no indication for further emergent testing or inpatient evaluation. I discussed with the patient/guardian the need to see the primary care provider for further evaluation of the symptoms. 02/23 14:34 Order name: Basic Metabolic Panel; Complete Time: 15:57 snw 02/23 14:34 Order name: CBC with Diff snw 02/23 14:34 Order name: LFT's; Complete Time: 15:57 snw 02/23 14:34 Order name: Magnesium; Complete Time: 15:57 snw 02/23 14:34 Order name: NT PRO-BNP; Complete Time: 15:57 snw 02/23 14:34 Order name: PT-INR; Complete Time: 15:42 snw 02/23 14:20 Order name: US Extremity Venous Unilateral Ltd; Complete Time: 15:42 snw 02/23 14:34 Order name: Troponin (emerg Dept Use Only); Complete Time: 15:57 snw 02/23 14:34 Order name: XRAY Chest (1 view); Complete Time: 15:42 snw 02/23 14:34 Order name: EKG; Complete Time: 14:35 snw 02/23 14:34 Order name: Cardiac monitoring; Complete Time: 14:42 snw 02/23 14:34 Order name: EKG - Nurse/Tech; Complete Time: 14:55 snw 02/23 15:29 Order name: Manual Differential EDMS 02/23 14:34 Order name: IV Saline Lock; Complete Time: 15:13 snw 02/23 14:34 Order name: Labs collected and sent; Complete Time: 15:13 snw 02/23 14:34 Order name: O2 Per Protocol; Complete Time: 14:42 snw 02/23 14:34 Order name: O2 Sat Monitoring; Complete Time: 14:42 snw Administered Medications: 16:26 Drug: Ecotrin Delayed Release Tablet 81 mg Route: PO; em 16:27 Follow up: Response: Medication administered at discharge. em Disposition: 18:49 Co-signature as Attending Physician, Frank Mccabe MD Did not see or evaluate patient. ps1 Signature for administrative purposes. Available for consultation in ED during the patient encounter. . Disposition: 02/24/20 16:04 Discharged to Home. Impression: Edema, unspecified - right lower extremity. - Condition is Stable. - Discharge Instructions: Aspirin and Your Heart, Rehydration, Adult, Peripheral Edema. - Medication Reconciliation Form, Thank You Letter, Antibiotic Education, Prescription Opioid Use form. - Follow up: Pat Cummings MD; When: 2 - 3 days; Reason: Recheck today's complaints, Continuance of care, Re-evaluation by your physician. Follow up: Emergency Department; When: As needed; Reason: Worsening of condition. - Notes: Please take an enteric coated aspirin 81mg daily Signatures: Dispatcher [employer] Lexi Archibald, DAMAGE PREVENTION COORDINATOR-C DAMAGE PREVENTION COORDINATOR-Csnw Sergo Whitfield, RN RN em Frank Mccabe MD MD ps1 Brayden Alvarez RN RN ll1 Corrections: (The following items were deleted from the chart) 16:28 16:04 02/24/2020 16:04 Discharged to Home. Impression: Edema, unspecified - right lower em extremity. Condition is Stable. Forms are Medication Reconciliation Form, Thank You Letter, Antibiotic Education, Prescription Opioid Use. Follow up: A Cummings; When: 2 - 3 days; Reason: Recheck today's complaints, Continuance of care, Re-evaluation by your physician. Follow up: Emergency Department; When: As needed; Reason: Worsening of condition. snw
--- NOTE | 2020-02-24 16:04 | ER ---
Nurse's Notes [facility] Name: Nicky Jaquez Age: 59 yrs Sex: Female : 1960 Arrival Date: 02/24/2020 Time: 13:51 Bed 19 Private MD: Diagnosis: Edema, unspecified-right lower extremity Presentation: 02/23 14:00 Chief complaint: Patient states: Here for r/o DVT RLE. Has had one in the same ll1 extremity in the past. Coronavirus screen: Client denies travel out of the [place] in the last 14 days. At this time, the client does not indicate any symptoms associated with coronavirus-19. Ebola Screen: Patient denies travel to an Ebola-affected area in the 21 days before illness onset. Initial Sepsis Screen: Does the patient meet any 2 criteria? HR > 90 bpm. Does the patient have a suspected source of infection? Yes: Other: RLE swelling/pain. Risk Assessment: Do you want to hurt yourself or someone else? Patient reports no desire to harm self or others. Onset of symptoms was February 22, 2020. 14:00 Method Of Arrival: Wheelchair ll1 14:00 Acuity: JOHN 3 ll1 Historical: - Allergies: 14:01 Copaxone; ll1 - PMHx: 14:01 Bipolar disorder; Glaucoma; Multiple Sclerosis; ll1 - Immunization history:: Flu vaccine is up to date. - Social history:: Smoking status: Patient/guardian denies using tobacco, the patient reports quitting approximately 10 years ago. Screenin:45 Abuse screen: Denies threats or abuse. Nutritional screening: No deficits noted. em Tuberculosis screening: No symptoms or risk factors identified. Fall Risk None identified. Assessment: 14:41 Reassessment: US at bedside. em 14:45 General: Appears in no apparent distress. comfortable, Behavior is calm, cooperative, em appropriate for age, Denies fever. Pain: Complains of pain in right leg Pain currently is 3 out of 10 on a pain scale. Neuro: Level of Consciousness is awake, alert, obeys commands, Oriented to person, place, time, situation, Appropriate for age. Cardiovascular: Denies chest pain, Capillary refill < 3 seconds Patient's skin is warm and dry. Respiratory: Airway is patent Respiratory effort is even, unlabored, Respiratory pattern is regular, symmetrical, Denies shortness of breath. Derm: Skin is intact, is healthy with good turgor, Skin is pink, warm \T\ dry. Musculoskeletal: Capillary refill < 3 seconds, Range of motion: intact in all extremities. 15:38 Reassessment: Patient appears in no apparent distress at this time. Patient and/or em family updated on plan of care and expected duration. Pain level reassessed. Patient is alert, oriented x 3, equal unlabored respirations, skin warm/dry/pink. 16:28 Reassessment: Patient appears in no apparent distress at this time. Patient and/or em family updated on plan of care and expected duration. Pain level reassessed. Patient is alert, oriented x 3, equal unlabored respirations, skin warm/dry/pink. Vital Signs: 14:00 BP 129 / 70; Pulse 105; Resp 18; Temp 98.1(O); Pulse Ox 95% ; Weight 89.36 kg; Height 5 ll1 ft. 4 in. (162.56 cm); Pain 3/10; 14:20 BP 124 / 62 LA (auto/reg); Pulse 103; Pulse Ox 96% on R/A; jp3 15:37 BP 134 / 61; Pulse 106; Resp 20; Pulse Ox 99% on R/A; em 16:28 BP 145 / 62; Pulse 105; Resp 18; Pulse Ox 96% on R/A; em 14:00 Body Mass Index 33.81 (89.36 kg, 162.56 cm) ll1 ED Course: 13:51 Patient arrived in ED. ds1 14:01 Triage completed. ll1 14:02 Arm band placed on Patient placed in an exam room, on a stretcher. ll1 14:18 Lexi Sierra FNP-C is [facility]. snw 14:18 Frank Mccabe MD is Attending Physician. snw 14:19 Sergo Whitfield, BERNARDO is Primary Nurse. em 14:20 Bed in low position. Call light in reach. Side rails up X 1. Warm blanket given. Verbal jp3 reassurance given. Pulse ox on. NIBP on. 14:20 Patient maintains SpO2 saturation greater than 95% on room air. jp3 14:56 US Extremity Venous Unilateral Ltd In Process Unspecified. EDMS 14:56 Ultrasound completed. Patient tolerated well. Notified INTERNET SALES REPRESENTATIVE/RICKY melton. sg3 15:00 XRAY Chest (1 view) In Process Unspecified. EDMS 15:05 Initial lab(s) drawn, by me, sent to lab. Inserted saline lock: 20 gauge in right em antecubital area, using aseptic technique. Blood collected. 15:40 Awaiting lab results. 16:03 Pat Cummings MD is Referral Physician. snw 16:23 Removal of peripheral IV. Catheter intact, dressing applied. jp3 16:27 No provider procedures requiring assistance completed. IV discontinued, intact, em bleeding controlled, No redness/swelling at site. Pressure dressing applied. Administered Medications: 16:26 Drug: Ecotrin Delayed Release Tablet 81 mg Route: PO; em 16:27 Follow up: Response: Medication administered at discharge. em Outcome: 16:04 Discharge ordered by MD. snw 16:27 Discharged to home ambulatory, with family. em 16:27 Condition: good 16:27 Discharge instructions given to patient, Instructed on discharge instructions, follow up and referral plans. Demonstrated understanding of instructions, follow-up care. 16:28 Patient left the ED. em Signatures: Dispatcher [employer] EDNM Anastasiia Rajan, RN RN Lexi Marte, CABINET BUILDER-C CABINET BUILDER-Csnw Sergo Whitfield, RN RN Marisa Hernández ds1 Laura Garcia sg3 Joe Crawford jp3 Brayden Alvarez RN RN ll1
[2020-02-24] MEDS ORDERED: ASPIRIN EC 81 MG TAB PO ONE (16:19)
[2020-02-24 16:35] VITALS: TEMP 98.1
[2020-02-24 16:39] VITALS: BP 145/62; O2SAT 96
--- NOTE | 2020-02-25 07:43 | EKG ---
Test Date: 2020-02-24 Test Time: 14:54:37 Supervisor Blasting: HILLARY MEASUREMENT RESULTS: Intervals: Rate: 103 MD: 162 QRSD: 76 QT: 344 QTc: 450 Dyer: P: 68 MD: 162 QRS: 28 T: 25 INTERPRETIVE STATEMENTS: Sinus tachycardia Nonspecific T wave abnormality Abnormal ECG Compared to ECG 06/17/2019 13:16:55 T-wave abnormality now present Sinus rhythm no longer present Electronically Signed On 02-25-20 07:42:46 CDT by Wyatt Mane
== END 2020-02-24 16:28 | disposition home or self-care (01) ==
LOC: ER 13:49
DX: R60.9 Edema, unspecified (principal); F31.9 Bipolar disorder, unspecified; Z88.8 Allergy status to other drugs, medicaments and biological substances
CPT/HCPCS: 36415; 71045; 80048; 80076; 83735; 83880; 84484; 85025; 85610; 93005; 93971; 99284

== ENCOUNTER 2022-05-26 14:35 | Emergency (ER) | payer OTHER ==
--- OUTSIDE RECORDS SUMMARY | 2022-05-26 14:38 | XMS REPORT | Continuity of Care Document ---
:1960 Author Organization [facility] t Address [address] [place] [address] Care Team Providers Name Role Phone HIMA RAMON Alvarez Primary Care Physician Unavailable JEFE DOBSON Attending Clinician Unavailable Nurse, Adc Pob Immunization Attending Clinician Unavailable Jefe Dobson DO Attending Clinician BRII JENSEN Attending Clinician Unavailable Daniel Taylor MD Attending Clinician DANIEL TAYLOR Attending Clinician Unavailable DANIEL TAYLOR Attending Clinician Unavailable LEIGHTON AGUIRRE Attending Clinician Unavailable SABA BELL Attending Clinician Unavailable DANIEL TAYLOR Admitting Clinician Unavailable Payers Payer Name Policy Type Policy Number Effective Date Expiration Date [employer] [id number] 2020 OUT OF NETWORK 00:00:00 Problems Condition Condition Condition Status Onset Resolution Last Treating Co mments Source Name Details Category Date Date Treatment Clinician Date S/P total S/P total Disease Active Uni vers hip hip 8-26 ity of [place]pl[place] 00 [facility] Obesity Obesity Disease Active Univers (BMI (BMI 8-26 ity of 30-39.9) 30-39.9) 00:00: [place] [address] Medical Branch 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 Added automatic ally from request for surgery [id number] Allergies, Adverse Reactions, Alerts Allergy Allergy Status Severity Reaction(s) Onset Inactive Treating Comm ents Source Name Type Date Date Clinician Jeremy Propensi Active Hives Univer s er ty to 4-16 ity of (Copolym adverse 00:00: [place] er 1) reaction 00 Medical s Branch GLATIRAM DRUG Active Hives Univers ER INGREDI 4-16 ity of (COPOLYM 00:00: [place] ER 1) 00 Medical Branch Social History Social Habit Start Date Stop Date Quantity Comments Source Alcohol intake 2020-12-22 2020-12-22 Current University of 00:00:00 00:00:00 non-drinker of [facility] alcohol [place] (finding) Tobacco use and 2019-01-08 2019-01-08 Never used Universit y of exposure 00:00:00 00:00:00 [facility] Sex Assigned At [birth year] Universit y of 00:00:00 00:00:00 [facility] Smoking Status Start Date Stop Date Source Former smoker 2019-01-08 00:00:00 2019-01-08 00:00:00 Universi ty of [facility] Medications Ordered Filled Start Stop Current Ordering Indication Dosage Frequency Signature Comments Components Source Medication Medication Date Date Medication? Clinician (SIG) Name Name dimethyl Yes 240mg Take 1 Univer s fumarate 9-14 capsule by ity o f (TECFIDERA) 00:00: mouth 2 [place] as 240 mg 00 (two) Medical capsule times Branch daily. iohexol Yes 41ug Inject 41 Unive rs (OMNIPAQUE 6-11 mcg as ity of REDIFLO 240 13:26: directed. [place] INJECTION[place] [address] [place] [address] XARELTO 20 2018-05 Yes Univers mg tablet 2-30 ity of 00:00: [place] 00 Medical Branch pregabalin 2018-05 Yes [id number] 50mg Take 2 Univers 25 mg 1-12 6 capsules ity of capsule 00:00: [place] (three) Medical times Branch daily. MULTIVITAMI Yes Take by Uni vers N ORAL 9-10 mouth. ity of 14:07: [place] 17 Medical Branch calcium Yes Take by Univers carbonate/v 9-10 mouth. ity of itamin D3 14:07: [place] (CALCIUM 17 Medical 500 + D, Branch D3, ORAL) pantoprazol 2018- Yes 40mg Take 40 mg Univers e 40 mg EC 9-10 by mouth ity o f tablet 14:07: daily. [place] [facility] Venlafaxine 2018- Yes Take by Uni vers 225 mg TR24 9-10 mouth. ity of 14:05: [place] [facility] acetaminoph 2019- Yes [id number] 1{tbl} Take 1 Univers en-codeine 8-27 6 tablet by ity of (TYLENOL-CO 00:00: mouth [place] DEINE #3) 00 every 4 Medical 300-30 mg (four) Branch tablet hours as needed for Pain (scale 4-6) or Pain (scale 7-10). traZODONE 2018- Yes 50mg Take 50 mg Un deidra 50 mg 8-16 by mouth ity of tablet 00:00: at [place] [address] bedtime. Medical Branch QUEtiapine 2019- Yes Univers 300 mg 24 4-15 ity of hr tablet 00:00: [place] [address] Medical Branch rosuvastati 2019-0 Yes Univer s n 20 mg 4-14 ity of tablet 00:00: [place] [address] Medical Branch ARIPiprazol 2019- Yes 10mg Take 10 mg Univers e 10 mg 4-12 by mouth ity of tablet 00:00: daily. [address] Branch diazePAM 5 2018- Yes TAKE 1 Unive rs mg tablet 4-10 TABLET BY ity o f 00:00: MOUTH [place] 00 DAILY Medical NEEDED FOR Branch ANXIETY. levothyroxi 2019- Yes 50ug Take 50 Uni vers ne 50 mcg 4-03 mcg by ity of tablet 00:00: mouth. [address] Branch metoprolol 2018- Yes TAKE 1 Unive rs tartrate 25 3-10 TABLET BY ity of mg tablet 00:00: ORAL ROUTE [place] 00 2 TIMES Medical EVERY DAY Branch TRAVATAN Z 2018- Yes INSTILL 1 Un deidra 0.004 % 2-22 DROP INTO ity of ophthalmic 00:00: BOTH EYES [place] drops 00 AT BEDTIME Medical Branch Immunizations Ordered Filled Immunization Date Status Comments [facility] e Immunization Name Name SARS-COV-2 COVID-19 2021-01-29 Completed Unive rsity of PFIZER VACCINE 00:00:00 [place] [facility] SARS-COV-2 COVID-19 2020-07-28 Completed Unive rsity of PFIZER VACCINE 00:00:00 [facility] SARS-COV-2 COVID-19 2020-07-07 Completed Unive rsity of PFIZER VACCINE 00:00:00 [facility] Procedures Procedure Date / Time Performed Performing Clinician Sourc e SARS-COV-2 COVID-19 2021-01-29 16:07:05 Doctor Unassigned, No Un [facility] [place] VACCINE,0.3ML,IM Name [facility] Branch (PFIZER) Encounters Start End Encounter Admission Attending Care Care Encounter Source Date/Time Date/Time Type Type Clinicians Facility Department ID 2021-03-16 Emergency [facility] [id number] Univers 14:17:06 [facility] [place] [facility] 2021-01-29 2021-01-29 Outpatient Hubert DOBSON [facility] [id number] Univers 11:10:00 11:10:00 JEFE [facility] [place] [facility] 2021-01-29 2021-01-29 Imm/Inj Nurse, Adc Pob Immunization [facility] [id number] Univers 11:05:44 11:06:08 Visit Jefe Dobson Phillips [id number] [facility] [id number] Kim Menezes [phone] [address] 2020-07-28 2020-07-28 Outpatient Hubert JENSEN [facility] [id number] Univers 15:30:00 15:30:00 BRII [facility] [place] [facility] 2020-07-07 2020-07-07 Outpatient Hubert JENSEN [facility] [id number] Univers 15:30:00 15:30:00 BRII [facility] [place] [facility] 2020-01-28 2020-01-28 Telephone LILIBETH Taylor [id number] 00:00:00 00:00:00 [facility] [id number] [facility] [id number] 2020-01-21 2020-01-21 Telephone Claudia MICASE [id number] 00:00:00 00:00:00 Daniel Chapman [id number] [place] [id number] Professio [id number] [address] 2020-01-04 2020-01-04 [facility] [id number] 00:00:00 00:00:00 Daniel Chapman [id number] [place] [id number] Professio [id number] [address] 2019-12-31 2019-12-31 [facility] [id number] 00:00:00 00:00:00 Daniel Chapman [id number] [place] [id number] Professio [id number] [address] 2019-12-27 2019-12-27 [place] [facility] [id number] 00:00:00 00:00:00 Daniel Chapman [id number] [place] [id number] Professio [phone] [address] 2019-12-17 2019-12-17 [place] [facility] [id number] 00:00:00 00:00:00 Daniel Chapman [id number] [place] [id number] Professio [phone] [address] 2019-12-10 2019-12-10 [facility] [id number] 00:00:00 00:00:00 Daniel Chapman [id number] [place] [id number] Professio [phone] [address] 2019-12-05 2019-12-05 [facility] [id number] 00:00:00 00:00:00 Daniel Chapamn [id number] [place] [id number] Professio [phone] [address] 2019-11-28 2019-11-28 Outpatient DANIEL MELO [facility] [id number] Univers 14:30:00 14:30:00 DANIEL TAYLOR [facility] 2019-11-27 2019-11-27 Outpatient DANIEL MELO [facility] [id number] Univers 16:00:00 16:00:00 DANIEL TAYLOR [facility] 2019-10-25 2019-10-25 Outpatient Hubert AGUIRRE [facility] [id number] Univers 14:03:13 23:59:00 LEIGHTONDIANN hernandez [facility] 2019-09-20 2019-09-20 Outpatient DANIEL MELO [facility] [id number] Univers 12:11:55 23:59:00 DANIEL TAYLOR [facility] 2019-08-13 2019-08-13 Outpatient DANIEL MELO [facility] [id number] Univers 11:20:00 11:20:00 DANIEL TAYLOR [facility] 2019-07-23 2019-07-23 Outpatient DANIEL MELO [facility] [id number] Univers 15:40:00 15:40:00 DANIEL TAYLOR [facility] 2019-04-18 2019-04-18 Outpatient DANIEL MELO [facility] [id number] Univers 11:21:28 23:59:00 DANIEL TAYLOR [facility] 2019-01-23 2019-01-23 Outpatient RAY [facility] [id number] Univers 13:14:41 23:59:00 SABA mary [facility] 2018-10-27 2018-10-27 Outpatient TIMOTHY [facility] [id number] Univers 11:18:18 23:59:00 LEIGHTON [facility] [place] [facility] Results This patient has no known results.
[2022-05-26 15:19] LABS: Absolute Lymphocytes (CBC) 0.7 K/uL (0.7-4.9); Lymphocytes % 21.1 % (15.3-44.8); MCV 93.7 fL (80-100); MPV 7.6 fL (7.6-11.3); RBC Red Blood Cell Count 4.38 M/uL (3.86-4.86)
[2022-05-26 15:23] LABS: Protime INR 0.96
[2022-05-26 15:36] LABS: Magnesium 2.2 mg/dL (1.6-2.4); Potassium 4.1 mmol/L (3.5-5.1); Troponin High Sensitivity 3.7 pg/mL (<58.9)
--- NOTE | 2022-05-26 15:58 | RAD REPORT ---
EXAM DESCRIPTION: RAD - Chest Single View - 05/26/2022 3:47 pm CLINICAL HISTORY: weakness COMPARISON: Chest Single View dated 02/24/2020; Chest Single View dated 06/17/2019; Chest Single View dated 11/21/2017; CHEST PA AND LAT 2 VIEW dated 05/21/2008 FINDINGS: Lines: None. Lungs: No evidence of edema or pneumonia. Pleural: No significant pleural effusions or pneumothorax. Cardiac: The heart size is within normal limits. Mediastinum: Within normal limits. Bones: No acute fractures. Other: None IMPRESSION: No acute cardiopulmonary disease.
[2022-05-26] MEDS ORDERED: METHYLPREDNISOLONE 125 MG INJ ONE (16:11)
--- NOTE | 2022-05-26 16:20 | EDPHYS ---
Physician Documentation [facility] Name: Nicky Jaquez Age: 61 yrs Sex: Female : 1960 Arrival Date: 05/26/2022 Time: 14:35 Bed 12 Private MD: Pat Cummings C; Ulysses Myrick F ED Physician Annelise Severino HPI: 05/26 16:08 This 61 yrs old Female presents to ER via Ambulatory with complaints of ms flare, sp3 weakness. 16:09 61-year-old female with a history of bipolar disease, multiple sclerosis, sp3 hypothyroidism now presents with chief complaint generalized weakness and "multiple sclerosis flare" similar to her prior flares in the past. She has had requirements for oral steroids for her past flares and is requesting that now. She tried calling Dr. Myrick who did not have an immediate appointment and therefore advised her to come to the ED. Patient denies fever, URI symptoms, headache, chest pain, shortness of breath, abdominal pain, nausea, vomiting, diarrhea, any other symptoms at this time.. Historical: - Allergies: 14:59 Copaxone; aa5 - PMHx: 14:59 Bipolar disorder; Glaucoma; Multiple Sclerosis; Hypothyroidism; "fast heart rate"; aa5 - PSHx: 14:59 Cholecystectomy; hysterectomy; L hip replacement; Back; aa5 - Immunization history:: Adult Immunizations unknown. - Social history:: Smoking status: Patient/guardian denies using tobacco. ROS: 16:11 Constitutional: Negative for fever, chills, and weight loss, Eyes: Negative for injury, sp3 pain, redness, and discharge, Neck: Negative for injury, pain, and swelling, Cardiovascular: Negative for chest pain, palpitations, and edema, Respiratory: Negative for shortness of breath, cough, wheezing, and pleuritic chest pain, Abdomen/GI: Negative for abdominal pain, nausea, vomiting, diarrhea, and constipation, MS/Extremity: Negative for injury and deformity, Skin: Negative for injury, rash, and discoloration, Psych: Negative for depression, anxiety, suicide ideation, homicidal ideation, and hallucinations, Allergy/Immunology: Negative for hives, rash, and allergies, Endocrine: Negative for neck swelling, polydipsia, polyuria, polyphagia, and marked weight changes. 16:11 All other systems are negative. Exam: 16:12 Constitutional: This is a well developed, well nourished patient who is awake, alert, sp3 and in no acute distress. Head/Face: Normocephalic, atraumatic. Eyes: Pupils equal round and reactive to light, extra-ocular motions intact. Lids and lashes normal. Conjunctiva and sclera are non-icteric and not injected. Cornea within normal limits. Periorbital areas with no swelling, redness, or edema. ENT: Nares patent. No nasal discharge, no septal abnormalities noted. External auditory canals are clear. Oropharynx with no redness, swelling, or masses, exudates, or evidence of obstruction, uvula midline. Mucous membranes moist. Neck: Trachea midline, no thyromegaly or masses palpated, and no cervical lymphadenopathy. Supple, full range of motion without nuchal rigidity, or vertebral point tenderness. No Meningismus. Chest/axilla: Normal chest wall appearance and motion. Nontender with no deformity. No lesions are appreciated. Cardiovascular: Regular rate and rhythm with a normal S1 and S2. No gallops, murmurs, or rubs. Normal PMI, no JVD. No pulse deficits. Respiratory: Lungs have equal breath sounds bilaterally, clear to auscultation and percussion. No rales, rhonchi or wheezes noted. No increased work of breathing, no retractions or nasal flaring. Abdomen/GI: Soft, non-tender, with normal bowel sounds. No distension or tympany. No guarding or rebound. No evidence of tenderness throughout. Back: No spinal tenderness. No costovertebral tenderness. Full range of motion. Skin: Warm, dry with normal turgor. Normal color with no rashes, no lesions, and no evidence of cellulitis. MS/ Extremity: Pulses equal, no cyanosis. Neurovascular intact. Full, normal range of motion. Neuro: Awake and alert, GCS 15, oriented to person, place, time, and situation. Cranial nerves II-XII grossly intact. Motor strength 5/5 in all extremities. Sensory grossly intact. Cerebellar exam normal. Normal gait. Psych: Awake, alert, with orientation to person, place and time. Behavior, mood, and affect are within normal limits. 16:12 ECG was reviewed by the Attending Physician. EKG demonstrates normal sinus rhythm at 97 sp3 bpm with normal intervals, normal QRS, normal axis, nonspecific diffuse ST/T changes without evidence of acute ischemia. Vital Signs: 14:56 BP 131 / 77; Pulse 103; Resp 18 S; Temp 97.5(TE); Pulse Ox 98% on R/A; Weight 89.81 kg aa5 (R); Height 5 ft. 4 in. (162.56 cm) (R); 14:56 Body Mass Index 33.99 (89.81 kg, 162.56 cm) aa5 MDM: 15:59 Patient medically screened. sp3 16:17 Data reviewed: vital signs, nurses notes. ED course: 61-year-old female with likely sp3 weakness secondary to multiple sclerosis. Differential diagnosis is broad and includes anything that could cause weakness. I reviewed laboratory values including chemistries, cell counts as well as chest x-ray and EKG which are all normal. At this point we will give Solu-Medrol 60 mg IV and discharge patient home on p.o. prednisone and follow-up with Dr. Myrick. Patient is okay with the plan and has no further questions and was appreciative for her care.. 05/26 15:03 Order name: Basic Metabolic Panel; Complete Time: 15:38 05/26 15:03 Order name: CBC with Diff; Complete Time: 15:38 05/26 15:03 Order name: Magnesium; Complete Time: 15:38 05/26 15:03 Order name: NT PRO-BNP; Complete Time: 15:38 05/26 15:03 Order name: PT-INR; Complete Time: 15:38 05/26 15:03 Order name: Troponin HS; Complete Time: 15:38 05/26 15:03 Order name: XRAY Chest (1 view) 05/26 15:03 Order name: EKG; Complete Time: 15:04 05/26 15:03 Order name: Cardiac monitoring; Complete Time: 15:42 05/26 15:03 Order name: EKG - Nurse/Tech; Complete Time: 15:42 05/26 15:03 Order name: IV Saline Lock; Complete Time: 15:05/26 15:03 Order name: Labs collected and sent; Complete Time: 15:05/26 15:03 Order name: O2 Per Protocol; Complete Time: 15:42 sp3 05/26 15:03 Order name: O2 Sat Monitoring; Complete Time: 15:42 sp3 Administered Medications: 16:04 Drug: SOLU-Medrol (methylPrednisoLONE) 60 mg Route: IVP; Site: left antecubital; jh5 Disposition Summary: 05/26/22 16:20 Discharge Ordered Location: Home sp3 Condition: Stable sp3 Diagnosis - Multiple sclerosis sp3 Followup: sp3 - With: Ulysses Myrick MD - When: Upon discharge from the Emergency Department - Reason: Further diagnostic work-up Discharge Instructions: - Discharge Summary Sheet sp3 - Multiple Sclerosis sp3 Forms: - Medication Reconciliation Form sp3 - Thank You Letter sp3 - Antibiotic Education sp3 - Prescription Opioid Use sp3 Prescriptions: - Prednisone 20 mg Oral Tablet - take 2 tablets by ORAL route once daily for 5 days; 10 tablet; Refills: 0, sp3 Product Selection Permitted Signatures: Dispatcher [employer] Kinsey Lanza RN RN aa5 Annelise Severino MD MD sp3 Disha Benito RN RN jh5
--- NOTE | 2022-05-26 16:20 | ER ---
Nurse's Notes [facility] Name: Nicky Jaquez Age: 61 yrs Sex: Female : 1960 Arrival Date: 05/26/2022 Time: 14:35 Bed 12 Private MD: Pat Cummings C; Ulysses Myrick F Diagnosis: Multiple sclerosis Presentation: 05/26 14:56 Chief complaint: Patient states: "I have mild MS and it seems to be bothering me more aa5 over the last 5 days". pt c/o generalized weakness x 5 days, reports SOB x 2 weeks. Pt states "I've also been having some bladder problems but I have an appointment for that". Pt reports difficulty urinating and frequency but only during the night. Coronavirus screen: At this time, the client does not indicate any symptoms associated with coronavirus-19. Ebola Screen: Patient denies travel to an Ebola-affected area in the 21 days before illness onset. Initial Sepsis Screen: Does the patient meet any 2 criteria? HR > 90 bpm. Does the patient have a suspected source of infection? No. Patient's initial sepsis screen is negative. Risk Assessment: Do you want to hurt yourself or someone else? Patient reports no desire to harm self or others. Onset of symptoms was 2022. 14:56 Acuity: JOHN 3 aa5 14:56 Method Of Arrival: Ambulatory aa5 Historical: - Allergies: 14:59 Copaxone; aa5 - PMHx: 14:59 Bipolar disorder; Glaucoma; Multiple Sclerosis; Hypothyroidism; "fast heart rate"; aa5 - PSHx: 14:59 Cholecystectomy; hysterectomy; L hip replacement; Back; aa5 - Immunization history:: Adult Immunizations unknown. - Social history:: Smoking status: Patient/guardian denies using tobacco. Vital Signs: 14:56 BP 131 / 77; Pulse 103; Resp 18 S; Temp 97.5(TE); Pulse Ox 98% on R/A; Weight 89.81 kg aa5 (R); Height 5 ft. 4 in. (162.56 cm) (R); 14:56 Body Mass Index 33.99 (89.81 kg, 162.56 cm) aa5 ED Course: 14:35 Patient arrived in ED. as 14:36 Pat Cummings MD is Private Physician. as 14:36 Ulysses Myrick MD is Private Physician. as 14:56 Arm band placed on. aa5 14:59 Triage completed. aa5 15:10 Initial lab(s) drawn, by me, sent to lab. Inserted saline lock: 20 gauge in left aa5 antecubital area, using aseptic technique. Blood collected. 15:22 Annelise Severino MD is Attending Physician. sp3 15:48 XRAY Chest (1 view) In Process Unspecified. EDMS 16:20 Ulysses Myrick MD is Referral Physician. sp3 Administered Medications: 16:04 Drug: SOLU-Medrol (methylPrednisoLONE) 60 mg Route: IVP; Site: left antecubital; [facility] Outcome: 16:20 Discharge ordered by . sp3 16:[address] [facility] Signatures: Dispatcher [employer] EDSC Kelsie Negron Audri, RN RN 5 Annelise Severino MD MD sp3 Disha Benito RN RN [facility]
[2022-05-26 17:00] VITALS: BP 131/77; TEMP 97.5; O2SAT 98
--- NOTE | 2022-05-27 14:23 | EKG ---
Test Date: 2022-05-26 Test Time: 15:39:39 [employer] Bever[employer] Intern: JR Gaspar MEASUREMENT RESULTS: Intervals: Rate: 97 MN: 156 QRSD: 72 QT: 346 QTc: 439 [place]: P: 71 MN: 156 QRS: 62 T: 67 INTERPRETIVE STATEMENTS: Normal sinus rhythm Normal ECG Compared to ECG 02/24/2020 14:54:37 Sinus tachycardia no longer present T-wave abnormality no longer present Electronically Signed On 05-27-22 14:21:24 PREDATORY HUNTER by Satya Sotomayor
== END 2022-05-26 16:47 | disposition home or self-care (01) ==
LOC: ER 14:35
DX: G35 Multiple sclerosis (principal); Z88.8 Allergy status to other drugs, medicaments and biological substances
CPT/HCPCS: 93005; 85025; 80048; 36415; 83735; 85610; 84484; 83880; 71045; 96374; 99284; J2930

== ENCOUNTER 2022-06-09 14:43 | Inpatient (IN) | payer OTHER ==
[2022-06-09 15:27] LABS: SARS-CoV-2 Antigen Rapid Res Negative (Negative)
--- OUTSIDE RECORDS SUMMARY | 2022-06-09 17:36 | XMS REPORT | Continuity of Care Document ---
:1960 Author Organization [facility] t Address [address] [place] [address] Care Team Providers Name Role Phone MIGUELITO RABAGO Primary Care Physician Unavailable Miguelito Rabago Attending Clinician Unavailable JEFE SANZ Attending Clinician Unavailable Nurse, Adc Pob Immunization Attending Clinician Unavailable Jefe Sanz DO Attending Clinician BRII JENSEN Attending Clinician Unavailable Daniel Taylor MD Attending Clinician DANIEL TAYLOR Attending Clinician Unavailable DANIEL TAYLOR Attending Clinician Unavailable LEIGHTON AGUIRRE Attending Clinician Unavailable SABA BELL Attending Clinician Unavailable DANIEL TAYLOR Admitting Clinician Unavailable Payers Payer Name Policy Type Policy Number Effective Date Expiration Date Keaton mays AETNA 53 [id number] [facility] [employer]ET[employer] COMMERCIAL [id number] 2020 OUT OF NETWORK 00:00:00 Problems Condition Condition Condition Status Onset Resolution Last Treating Co mments Source Name Details Category Date Date Treatment Clinician Date S/P total S/P total Disease Active Uni vers hip hip 8-26 ity of [place]pl[place] [facility] Obesity Obesity Disease Active Univers (BMI (BMI 8-26 ity of 30-39.9) 30-39.9) 00:00: [address] 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 Added automatic ally from request for surgery [id number] [place] [id number] finger of Spirit left thumb - [facility] [id number] Lower Problem Common urinary Spirit tract - [facility] symptoms [facility] [id number] MS Problem Common (multiple Spirit sclerosis) - [facility] [id number] Nocturia Problem Comm on Spirit [facility] Allergies, Adverse Reactions, Alerts Allergy Allergy Status Severity Reaction(s) Onset Inactive Treating Comm ents Source Name Type Date Date Clinician Jeremy Propensi Active [facility] Univer s er ty to 4-16 ity of (Copolym adverse 00:00: [place] er 1) reaction 00 [facility] GLATIRAM DRUG Active [facility] Univers ER INGREDI 4-16 ity of (COPOLYM 00:00: [place] ER 1) 00 [facility] Branch glatiram glatiram Active Unknown Commo n er er Spirit [facility] Social History Social Habit Start Date Stop Date Quantity Comments Source History of [facility] - Tobacco Use [facility] Sex Assigned At Common Sp sean - [facility] Alcohol intake 2020-12-22 2020-12-22 Current [facility] 00:00:00 00:00:00 non-drinker of [facility] alcohol Branch (finding) Tobacco use and 2019-01-08 2019-01-08 Never used Universit y of exposure 00:00:00 00:00:00 [facility] Smoking Status Start Date Stop Date Source Former Smoker 2022-06-02 00:00:00 2022-06-02 00:00:00 [facility] pirit [facility] Medications Ordered Filled Start Stop Current Ordering Indication Dosage Frequency Signature Comments Components Source Medication Medication Date Date Medication? Clinician (SIG) Name Name Kenalog Kenalog No 40mg Common (Triamcinol (Triamcinol 8-18 S pirit one) one) 00:00: - [facility] Bupivicaine Bupivicaine No 2.5mg Common [place] 8-18 Spirit 00:00: - [facility] Lidocaine Lidocaine No 10mg Com mon 1-19 Spirit 00:00: - [facility] Kenalog Kenalog No 40mg Common (Triamcinol (Triamcinol 1-19 S pirit one) one) 00:00: - [facility] dimethyl Yes 240mg Take 1 Univer s fumarate 9-14 capsule by ity o f (TECFIDERA) 00:00: mouth 2 Yasmani as 240 mg 00 (two) Medical capsule times Branch daily. iohexol Yes 41ug Inject 41 Unive rs (OMNIPAQUE 6-11 mcg as ity of REDIFLO 240 13:26: directed. [place] INJECTION) [address] [place] [address] XARELTO 20 2018-05 Yes Univers mg tablet 2-30 ity of 00:00: [address] pregabalin 2018-05 Yes [id number] 50mg Take 2 Univers 25 mg 1-12 6 capsules ity of capsule 00:00: [place] mouth [place] (three) Medical times Branch daily. MULTIVITAMI Yes Take by Uni vers N ORAL 9-10 mouth. ity of 14:07: [address] calcium Yes Take by Univers carbonate/v 9-10 mouth. ity of itamin D3 14:07: [place] (CALCIUM 17 Medical 500 + D, Branch D3, ORAL) pantoprazol Yes 40mg Take 40 mg Univers e 40 mg EC 9-10 by mouth ity o f tablet 14:07: daily. [address] Venlafaxine Yes Take by Uni vers 225 mg TR24 9-10 mouth. ity of 14:05: [address] acetaminoph Yes [id number] 1{tbl} Take 1 Univers en-codeine 8-27 6 tablet by ity of (TYLENOL-CO 00:00: mouth [place] DEINE #3) 00 every 4 Medical 300-30 mg (four) Branch tablet hours as needed for Pain (scale 4-6) or Pain (scale 7-10). traZODONE 2019-0 Yes 50mg Take 50 mg Un deidra 50 mg 8-16 by mouth ity of tablet 00:00: at [place] [address] bedtime. Medical Branch QUEtiapine 2019- Yes Univers 300 mg 24 4-15 ity of hr tablet 00:00: [place] [facility] rosuvastati 2018- Yes Univer s n 20 mg 4-14 ity of tablet 00:00: [place] [facility] ARIPiprazol 2018- Yes 10mg Take 10 mg Univers e 10 mg 4-12 by mouth ity of tablet 00:00: daily. [place] [facility] diazePAM 5 2018- Yes TAKE 1 Unive rs mg tablet 4-10 TABLET BY ity o f 00:00: MOUTH [place] [address] DAILY Medical NEEDED FOR Branch ANXIETY. levothyroxi 2018- Yes 50ug Take 50 Uni vers ne 50 mcg 4-03 mcg by ity of tablet 00:00: mouth. [place] [facility] metoprolol Yes TAKE 1 Unive rs tartrate 25 3-10 TABLET BY ity of mg tablet 00:00: [place]AL ROUTE [place] 00 2 TIMES Medical EVERY DAY Branch TRAVATAN Z Yes INSTILL 1 Un deidra 0.004 % 2-22 DROP INTO ity of ophthalmic 00:00: BOTH EYES [place] drops 00 AT BEDTIME Medical Branch diazePAM 5 diazePAM 5 No 1{table QD diazePAM 5 MG MG t_as_ne MG eded} Crestor Crestor No Crestor Travoprost Travoprost No 1{drop_ QD Travoprost (YANETH Free) (YANETH Free) into_af (YANETH Free) 0.004 % 0.004 % fected_ 0.004 % eye_in_ the_eve errol} Venlafaxine Venlafaxine No 1{table QD Venlafaxin HCl ER 225 HCl ER 225 t_with_ e HCl ER MG MG food} 225 MG Metoprolol Metoprolol No 1{table BID Metoprolol Tartrate 50 Tartrate 50 t_with_ Tartrate MG MG food} 50 MG Pantoprazol Pantoprazol No 1{table QD Pantoprazo e Sodium 40 e Sodium 40 t} le Sodium MG MG 40 MG ARIPiprazol ARIPiprazol No 1{table QD ARIPiprazo e 10 MG e 10 MG t} le 10 MG QUEtiapine QUEtiapine No 1{table QD QUEtiapine Fumarate Fumarate t_at_be Fumarate 400 MG 400 MG dtime} 400 MG Calcium + Calcium + No 1{table QD Calcium + Vitamin D3 Vitamin D3 t_with_ Vitamin D3 600-10 600-10 a_meal} 600-10 MG-MCG MG-MCG MG-MCG Aspir-81 Aspir-81 No Aspir-81 Dimethyl Dimethyl No 1{capsu BID Dimethyl Fumarate Fumarate le} Fumarate 240 MG 240 MG 240 MG Vitamin D-3 Vitamin D-3 No 1{capsu QD Vitamin 25 MCG 25 MCG le} D-3 25 MCG (1000 UT) (1000 UT) (1000 UT) Multivitami Multivitami No 1{table QD Multivitam n - n - t} in - Rosuvastati Rosuvastati No 1{table QD Rosuvastat n Calcium n Calcium t} in Calcium 20 MG 20 MG 20 MG Vitamin Vitamin No 1{table QD Vitamin B-12 500 B-12 500 t} B-12 500 MCG MCG MCG Furosemide Furosemide No 1{table QD Furosemide 20 MG 20 MG t} 20 MG Senna Plus Senna Plus No QD Senna Plus 50-8.6 MG 50-8.6 MG 50-8.6 MG metFORMIN metFORMIN No QD metFORMIN HCl ER 500 HCl ER 500 HCl ER 500 MG MG MG Tamsulosin Tamsulosin No 1{capsu BID Tamsulosin HCl 0.4 MG HCl 0.4 MG le} HCl 0.4 MG Levothyroxi Levothyroxi No QD Levothyrox ne Sodium ne Sodium ine Sodium 100 MCG 100 MCG 100 MCG Immunizations Ordered Filled Immunization Date Status Comments [facility] e Immunization Name Name SARS-COV-2 COVID-19 2021-01-29 Completed Unive rsity of PFIZER VACCINE 00:00:00 [facility] SARS-COV-2 COVID-19 2020-07-28 Completed Unive rsity of PFIZER VACCINE 00:00:00 [facility] SARS-COV-2 COVID-19 2020-07-07 Completed Unive rsity of PFIZER VACCINE 00:00:00 [facility] Vital Signs Vital Name Observation Time Observation Value Comments Source height 2022-06-02 14:30:00 65 [in_i] Common S pirit [facility] weight 2022-06-02 14:30:00 198.2 [lb_av] [facility] - [facility] temperature 2022-06-02 14:30:00 97.4 [degF] Common S pirit [facility] bmi 2022-06-02 14:30:00 32.98 kg/m2 Common S [facility] oximetry 2022-06-02 14:30:00 97 % Common [facility] respiratory rate 2022-06-02 14:30:00 16 /min Comm on [facility] blood pressure 2022-06-02 14:30:00 121 mm[Hg] Common [facility] - systolic [facility] blood pressure 2022-06-02 14:30:00 64 mm[Hg] Common [facility] - diastolic [facility] Procedures Procedure Date / Time Performed Performing Clinician Jia yair SARS-COV-2 COVID-19 2021-01-29 16:07:05 Doctor Unassigned, No Un [facility] [place] VACCINE,0.3ML,IM Name Medical Branch ([employer]) Encounters Start End Encounter Admission Attending Care Care Encounter Source Date/Time Date/Time Type Type Clinicians Facility Department ID 2022-06-02 Outpatient Rabago, STLMLC STLMLC [id number] Common 14:22:[id number] [facility] 2021-03-16 Emergency [facility] [id number] Univers 14:17:06 ity [facility] 2022-06-02 2022-06-02 OFFICE STLMLC STLMLC [id number] Co mmon 00:00:00 00:00:00 VISIT KULDEEP Martins it PT LEVEL 3 - [facility] 2021-01-29 2021-01-29 Outpatient Hubert SANZ [facility] [id number] Univers 11:10:00 11:10:00 JEFE hernandez [facility] 2021-01-29 2021-01-29 Imm/Inj Nurse, Adc Pob Immunization [facility] [id number] Univers 11:05:44 11:06:08 [id number] Kim drew Professio [id number] Sd dical [address] 2020-07-28 2020-07-28 Outpatient Hubert JENSEN [facility] [id number] Univers 15:30:00 15:30:00 BRII [facility] 2020-07-07 2020-07-07 Outpatient Hubert JENSEN [facility] [id number] Univers 15:30:00 15:30:00 [facility] 2020-01-28 2020-01-28 Telephone Claudia [facility] [id number] 00:00:00 00:00:00 Daniel Ennis [facility] [id number] [facility] [id number] [id number] [facility] 2020-01-21 2020-01-21 [facility] [id number] 00:00:00 00:00:00 Daniel Chapman [id number] [place] [id number] Professio [phone] [address] 2020-01-04 2020-01-04 [facility], [facility] [id number] 00:00:00 00:00:00 Daniel Chapman [id number] [place] [id number] Professio [id number] [address] 2019-12-31 2019-12-31 [facility] [id number] 00:00:00 00:00:00 Daniel Chapman [id number] [place] [id number] Professio [id number] [address] 2019-12-27 2019-12-27 [facility], [facility] [id number] 00:00:00 00:00:00 Daniel Chapman [id number] [place] [id number] Professio [id number] [address] 2019-12-17 2019-12-17 [facility] [place], [facility] [id number] 00:00:00 00:00:00 Daniel Chapman [id number] [place] [id number] Professio [id number] nal 2 [facility] 2019-12-10 2019-12-10 Refill Claudia [facility] [id number] 00:00:00 00:00:00 Daniel Chapman [id number] [place] [id number] Professio [id number] [address] 2019-12-05 2019-12-05 Telephone Claudia [facility] [id number] 00:00:00 00:00:00 Daniel Chapman [id number] [place] [id number] Professio [id number] [address] 2019-11-28 2019-11-28 Outpatient DANIEL MELO [facility] [id number] Univers 14:30:00 14:30:00 DANIEL TAYLOR moises [facility] 2019-11-27 2019-11-27 Outpatient DANIEL MELO [facility] [id number] Univers 16:00:00 16:00:00 DANIEL TAYLOR moises [facility] 2019-10-25 2019-10-25 Outpatient Hubert AGUIRRE [facility] [id number] Univers 14:03:13 23:59:00 LEIGHTON moises [facility] 2019-09-20 2019-09-20 Outpatient DANIEL MELO [facility] [id number] Univers 12:11:55 23:59:00 DANIEL TAYLOR [facility] 2019-08-13 2019-08-13 Outpatient DANIEL MELO [facility] [id number] Univers 11:20:00 11:20:00 DANIEL TAYLOR [facility] 2019-07-23 2019-07-23 Outpatient DANIEL MELO [facility] [id number] Univers 15:40:00 15:40:00 DANIEL TAYLOR [facility] 2019-04-18 2019-04-18 Outpatient DANIEL MELO [facility] [id number] Univers 11:21:28 23:59:00 DANIEL TAYLOR [facility] 2019-01-23 2019-01-[address] [facility] [id number] Univers 13:14:41 23:59:00 SABA [facility] 2018-10-27 2018-10-[address] [facility] [id number] Univers 11:18:18 23:59:00 LEIGHTON [facility] Results This patient has no known results.
[2022-06-09 19:52] VITALS: BMI 33.7
[2022-06-09 20:05] LABS: Absolute Lymphocytes (CBC) 0.7 K/uL (0.7-4.9); Hematocrit 39.9 % (36.0-45.0); Lymphocytes % 16.8 % (15.3-44.8); MCV 95.2 fL (80-100); MPV 7.9 fL (7.6-11.3); RBC Red Blood Cell Count 4.19 M/uL (3.86-4.86)
[2022-06-09 20:30] LABS: Albumin 3.4 g/dL (3.4-5.0); Bilirubin Total 0.4 mg/dL (0.2-1.0); Potassium 3.3 mmol/L (3.5-5.1); Protein, Total 6.2 g/dL (6.4-8.2); Thyroid Stimulating Hormone 0.991 uIU/mL (0.358-3.740)
[2022-06-09] MEDS ORDERED: NA CHLORIDE 0.9% 100 ML ONE (21:32)
[2022-06-09] MEDS ORDERED: METHYLPREDNISOLONE 125 MG INJ ONE (21:32)
[2022-06-10] MEDS ORDERED: DIAZEPAM 5 MG TABLET PO PRN (05:26)
[2022-06-10] MEDS ORDERED: D50W 25 GM/50 ML SYRINGE IV PRN (05:31)
[2022-06-10] MEDS ORDERED: GLUCAGON 1 MG/VIAL IM PRN (05:31)
[2022-06-10] MEDS ORDERED: D10W 125 ML IV PRN (05:34)
[2022-06-10] MEDS ORDERED: LORAZEPAM 0.5 MG TABLET PO ONE (06:17)
[2022-06-10] MEDS: INSULIN -REGULAR HUMAN 50 UNIT/0.5 ML ML SQ SCH ×4 (07:30→21:00)
--- NOTE | 2022-06-10 08:07 | HP ---
Date of Admission: 06/09/2022 Chief Complaint: Weakness. History Of Present Illness: This is a 61-year-old very pleasant female patient with history of multi ple sclerosis, who sees her neurologist regularly, came into office today with complaints of weakness of her both arms and both legs. The patient reported that about 2 to 3 weeks ago, she went to emerg ency room with this weakness of her both arms and both legs and with her history of multiple sclerosi s. She was concerned about having acute exacerbation or worsening of her multiple sclerosis. She wa s given IV steroid in the emergency room and was discharged to go home with 5 days of oral steroid th rickey. This particular treatment has not really provided her any relief. She did see her neurologis t, Dr. Myrick for followup after the emergency room visit and today she came into see me as her sym ptoms were not improving and symptoms have been going on for last 2 months. Denies any fever, chills , nausea, vomiting, diarrhea. No other associated symptoms. No aggravating or relieving factors. A fter I evaluated her, I did communicate with her neurologist, Dr. Myrick and decision was made to a dmit her to hospital for IV steroid therapy considering possibility of exacerbation of multiple scler osis. Medications: List reviewed. Review of Systems: FEEDER LOADER: As mentioned above. All other systems reviewed and negative. Allergies: TO COGENTIN CAUSING OPTIC NEURITIS AND COPAXONE CAUSING HIVES. Past Medical History: Significant for fibromyalgia, multiple sclerosis, hypothyroidism, impaired fas ting glucose, hypertension, sinus tachycardia, mixed hyperlipidemia, gastroesophageal reflux disease, endometriosis, osteoarthritis, anxiety, thrombocytopenia, and history of DVT of right leg April 152018. Past Surgical History: Significant for cataract surgery, tonsillectomy with removal of adenoids, wis dom teeth extraction, , hysterectomy, back surgery, and left hip surgery. Family History: Father had macular degeneration. Mother had heart disease, rheumatic fever. Brothe r with myocardial infarction. Social History: Prior history of smoking, not at present time. Use of alcohol rarely. Physical Examination: Vital Signs: At office; blood pressure 110/71, pulse 99, temperature 97.2, respiratory rate 16, weig ht 201 pounds, height 64 inches. General: Awake, alert, oriented, not in distress. HEENT: Head atraumatic, normocephalic. Conjunctivae nonerythematous. Sclerae white. Mouth, no thr ush or edema noted. Ears/Nose, no mass, lesion, discharge noted. Neck: Supple. No JVD, lymph nodes, bruit, thyromegaly noted. Lungs: Bilateral good equal air entry. Clear to auscultation. No rhonchi. No rales. Heart: Normal heart sounds, no murmur or gallop. Abdomen: Soft, bowel sounds normal. No guarding, rigidity, tenderness, mass, hepatosplenomegaly, dis tention, or bruit noted. Extremities: No leg edema. No calf tenderness. Skin: No rash, ulcer, cellulitis. Lymphatics: No lymph node enlargement in neck, supraclavicular, infraclavicular region. Neuro: No focal neurological deficit. Chest: Unremarkable. External Genitalia: Deferred. Rectal: Deferred. FEEDER LOADER: The patient's power 4 to 4+/5 in all the 4 extremities. Deep tendon reflexes 1+ in left lower extremity, absent in right lower extremity. No other focal neurological deficits noted. Laboratory Data: COVID-19 test negative. WBC 4.2, hemoglobin 13.2, platelets 164. Sodium 142, pota ssium 3.3, chloride 105, bicarb 29, BUN 16, creatinine 0.83, glucose 179. Hemoglobin A1c 5.8. TSH 0 .991. Liver function tests normal. Impression: 1.Multiple sclerosis, with acute exacerbation. 2.Hypokalemia. 3.Hypertension. 4.Mixed hyperlipidemia. 5.Impaired fasting glucose. 6.Sinus tachycardia. 7.Fibromyalgia. 8.Gastroesophageal reflux disease. 9.Osteoarthritis, multiple sites. 10.Anxiety. Plan: Admit the patient to hospital for further evaluation and management of this problem. The deepti ent is appropriate for inpatient and is expected to spend 2 midnights in hospital. We will start her on IV Solu-Medrol 1 g daily for 3 days. Plan is to give minimum 3 days of IV Solu-Medrol and if nec essary consider 5 days treatment as per my discussion with Dr. Myrick. We will consult him from [facility]. MRI of the brain with and without contrast will be ordered. We will look for impai red fasting glucose. We will monitor fingerstick blood sugar readings with mild sliding scale per or luan. For hypertension, continue her metoprolol per order, hold if systolic blood pressure less than 120. For mixed hyperlipidemia, continue her rosuvastatin therapy per order. DVT prophylaxis will be given using Lovenox. For gastroesophageal reflux disease, we will continue her pantoprazole as per order. Other home medications will be continued per order. I will see her tomorrow for followup. P luis of treatment discussed with her. SCOTTY/MODL Voice ID: [id number]
[2022-06-10] MEDS ORDERED: NA CHLORIDE 0.9% 100 ML ONE (08:14)
[2022-06-10] MEDS: ASPIRIN 81 MG CHEWABLE TABLET PO SCH (09:00)
[2022-06-10] MEDS: PANTOPRAZOLE 40MG TABLET PO SCH (09:00)
[2022-06-10] MEDS: MULTIVIT W/ MINERAL TAB PO SCH (09:00)
[2022-06-10] MEDS: ARIPiprazole 5 MG TAB PO SCH (09:00)
[2022-06-10] MEDS ORDERED: METHYLPRED NA SUC 1,000 MG in NA CHLORIDE 0.9% 100 ML IV SCH (09:00)
[2022-06-10] MEDS ORDERED: METOPROLOL TAR 50 MG TAB PO SCH (09:00)
[2022-06-10] MEDS: VENLAFAXINE HCL XR 75 MG CAP PO SCH (09:01)
[2022-06-10] MEDS: VITAMIN D 1000 UNIT TAB PO SCH (09:01)
[2022-06-10] MEDS: LEVOTHYROXINE SOD 0.1 MG TAB PO SCH (09:01)
[2022-06-10] MEDS: CALCIUM CARBONATE CHEW 500MG TAB PO SCH ×2 (09:03→21:48)
[2022-06-10] MEDS: METOPROLOL TAR 50 MG TAB PO SCH ×2 (09:03→21:48)
[2022-06-10] MEDS: ROSUVASTATIN 10 MG TAB PO SCH (09:03)
[2022-06-10] MEDS: ENOXAPARIN 40 MG/0.4 ML SQ SCH (09:04)
--- NOTE | 2022-06-10 16:11 | RAD REPORT ---
EXAM DESCRIPTION: MRI - Brain W/Wo Cont - 06/10/2022 3:47 pm CLINICAL HISTORY: Multiple sclerosis exacerbation COMPARISON: 2018 TECHNIQUE: Axial, sagittal, and coronal magnetic images of the brain were obtained. 20 cc MultiHance administered intravenously FINDINGS: Mild to moderate signal within periventricular, deep and subcortical white matter without significant change. None of these areas demonstrate enhancement. The ventricles are normal in caliber. Diffusion-weighted/ ADC mapping sequences do not demonstrate evidence of an acute infarction. An extra-axial fluid collection is not noted. Fluid within the sinuses/mastoids is not seen IMPRESSION: No evidence of active multiple sclerosis plaque
[2022-06-10] MEDS: METHYLPRED NA SUC 1,000 MG in NA CHLORIDE 0.9% 100 ML IV SCH (16:43)
[2022-06-10] MEDS: CYANOCOBALAMIN 1,000 MCG TAB PO SCH (16:44)
[2022-06-10] MEDS ORDERED: QUETIAPINE 100MG TAB PO SCH (21:00)
[2022-06-10] MEDS ORDERED: TRAVOPROST 0.004% 2.5ML OPTH EACH EYE SCH (21:00)
[2022-06-10] MEDS ORDERED: DOCUSATE NA/SENNA CONC 1 TAB PO SCH (21:00)
[2022-06-10] MEDS: ACETAMINOPHEN 500 MG TAB PO PRN (21:48)
--- NOTE | 2022-06-11 01:43 | CON ---
Reason For Consultation: Consultation called by Dr. Cummings because of possible multiple sclerosis exac erbation. History Of Present Illness: Ms. Jaquez is a 61-year-old right-handed patient seen in [facility] for multiple sclerosis. She has previously been seen by Dr. Daniel Johnson and Dr. George Cervantes f or more than a decade for multiple sclerosis that has been stable. She is managed on dimethyl fumara te 240 mg twice daily and has had multiple brain MRIs that show stable lesions. She was seen by her primary care physician earlier this week and complained of about 2 to 3 weeks of some progressive wea kness in the arms and legs without focal findings. In the emergency room, she did receive a course o f IV steroids and then sent home with a 5 day oral taper, but symptoms did not improve and she did fo llow up in clinic and then saw Dr. Myrick in clinic and came in and then later saw Dr. Cummings in his clinic and the decision was made after discussion to go back to the hospital for IV steroids due to a possible exacerbation of multiple sclerosis. Today she has already received 1 course and she is to complete 2 more, so 3 courses of 1 g of Solu-Medrol daily. At this point, she is feeling somewhat be tter although not back to her baseline. Past Medical History: Fibromyalgia, multiple sclerosis, hypothyroidism, hypertension, dyslipidemia, gastroesophageal reflux disease, and history of DVT in the right leg in 2019. Past Surgical History: Cataract removal, tonsillectomy, adenoidectomy, wisdom tooth extraction, C-se ction, hysterectomy, and hip surgery. Allergies: COGENTIN AND COPAXONE. Family History: Father with macular degeneration. Mother had heart disease, rheumatic fever. Broth er with myocardial infarction. Social History: No recent smoking, smoked in the past. Occasional alcohol use. No IV drug abuse. Physical Examination: Vital Signs: Blood pressure 135/68, pulse 98 up to 114, respiratory rate 16 to 18, temperature 97.8, and oxygen saturation 96%. General: Ms. Jaquez is resting in bed. She completed her course of steroids. She is in no signif icant distress. is at the bedside. HEENT: She is normocephalic, atraumatic. Sclerae anicteric. Oropharynx pink and moist. Neck: Supple. Chest: Clear. Heart: Regular. Extremities: No significant edema or cyanosis. Neurologic: Alert and oriented to situation, place, and person. She has an exaggerated startle refl ex and no focal cranial nerve deficits. She has diffuse weakness around 4/5 in the upper and lower e xtremities. Mild stocking-glove loss to light touch and temperature. Slightly increased reflexes in upper and lower extremities and mild dysmetria on ytjygx-bv-gocm bilaterally and qkki-bg-ozqu bilate rally. Laboratory Studies: White blood cell count 4.2, hemoglobin 13.2, and platelets 164. INR 0.96. Sodi um 142, potassium 4.0, chloride 106, carbon dioxide 27, BUN 14, glucose ranged from 72 to 142, calciu m 9.1. TSH 0.991. ALT 31, AST 20, alkaline phosphatase 47. COVID testing was negative. Assessment: Ms. Jaquez is a 61-year-old patient with multiple medical problems including possible multiple sclerosis exacerbation. Her comorbidities are addressed by Dr. Cummings, primary care physician . She is now completing a course of Solu-Medrol and has been on dimethyl fumarate, this is generic T ecfidera 240 twice daily and this should continue. Plan: 1.Continue with the course of steroids as indicated. 2.Continue dimethyl fumarate 240 mg twice daily. 3.Continue Effexor and Seroquel. 4.DVT prophylaxis with Lovenox 40 mg subcutaneously daily. SAMIR/XIANG Voice ID: [id number] Report ID: [id number]
[2022-06-11 02:06] VITALS: O2SAT 95
[2022-06-11] MEDS: ACETAMINOPHEN 500 MG TAB PO PRN (05:40)
[2022-06-11] MEDS ORDERED: FUROSEMIDE 20 MG TABLET PO SCH (06:00)
[2022-06-11] MEDS: INSULIN -REGULAR HUMAN 50 UNIT/0.5 ML ML SQ SCH ×3 (07:30→15:50)
--- NOTE | 2022-06-11 08:04 | PN ---
Date of Progress Note: 06/10/2022 Subjective: The patient was seen this morning for followup. No new complaints or problems reported by her. Lying in bed, not in distress. She received first dose of her IV Solu-Medrol last night. Physical Examination: HEENT: Unremarkable. Lungs: Clear to auscultation. Heart: Sounds normal. Abdomen: Soft. Bowel sounds normal. No guarding, rigidity, tenderness, distention. Extremities: No leg edema. Laboratory Data: The patient had MRI of the brain done today with and without contrast and shows no evidence of any active multiple sclerosis plaque. Impression: 1.Multiple sclerosis, with acute exacerbation. 2.Hypokalemia. 3.Hypertension. 4.Mixed hyperlipidemia. 5.Sinus tachycardia. 6.Impaired fasting glucose. Plan: We will continue current IV Solu-Medrol as suggested by urologist and continue to follow up wi th also neurologist, Dr. Myrick. Monitor electrolyte as per lab results if necessary. Continue cu rrent statin therapy for cholesterol and monitor fingerstick blood sugar readings with sliding scale insulin per order. Continue metoprolol also as per order. We will see her tomorrow for followup. SCOTTY/MODL Voice ID: [id number] Report ID: [id number]
[2022-06-11] MEDS: ROSUVASTATIN 10 MG TAB PO SCH (08:27)
[2022-06-11] MEDS: ARIPiprazole 5 MG TAB PO SCH (08:27)
[2022-06-11] MEDS: MULTIVIT W/ MINERAL TAB PO SCH (08:28)
[2022-06-11] MEDS: VENLAFAXINE HCL XR 75 MG CAP PO SCH (08:28)
[2022-06-11] MEDS: CALCIUM CARBONATE CHEW 500MG TAB PO SCH (08:28)
[2022-06-11] MEDS: VITAMIN D 1000 UNIT TAB PO SCH (08:28)
[2022-06-11] MEDS: ASPIRIN 81 MG CHEWABLE TABLET PO SCH (08:28)
[2022-06-11] MEDS: PANTOPRAZOLE 40MG TABLET PO SCH (08:28)
[2022-06-11] MEDS: ENOXAPARIN 40 MG/0.4 ML SQ SCH (08:28)
[2022-06-11] MEDS: LEVOTHYROXINE SOD 0.1 MG TAB PO SCH (08:29)
[2022-06-11] MEDS: METOPROLOL TAR 50 MG TAB PO SCH (10:33)
--- NOTE | 2022-06-11 12:34 | DS ---
Date of Discharge: 06/11/2022 Disposition: The patient will be discharged to go home today after her third dose of Solu-Medrol. Physical Examination: HEENT: Unremarkable. Lungs: Clear to auscultation. Heart: Sounds normal. Abdomen: Soft. Bowel sounds normal. No guarding, rigidity, tenderness, distention. Extremities: No leg edema. Laboratory Data: Upon admission; sodium 142, potassium 3.3, chloride 105, bicarb 29, BUN 16, creatin ine 0.83, glucose 179. Liver function tests unremarkable. Hemoglobin A1c 5.8. TSH 0.991. White co unt 4.2, hemoglobin 13.2 platelets 164. Hospital Course: This is a 61-year-old very pleasant female patient admitted to the hospital with ge neralized weakness. Please see dictated H and P for more information. After the patient was evaluat ed at office, decision was made to admit her to the hospital for acute exacerbation of her multiple s clerosis problem. I did communicate with her neurologist, Dr. Myrick and decision was made to admi t her to the hospital for IV steroid therapy, which she received. The patient started ambulating wel l and her MRI of the brain with and without contrast was unremarkable during this hospitalization. N eurology consultation was obtained from Dr. Myrick. The patient's overall condition has improved t pauline, she reports that she feels a lot stronger compared to how she was when she first came into the hospital and overall feels like this 3 days of IV Solu-Medrol treatment has helped her, out of bed to improve her strength in upper and lower extremities. She feels like she is almost back to her basel ine. She has tolerated this treatment very well today after her last dose, which is her third dose o f Solu-Medrol. She will be discharged to go home. Final Diagnoses: 1.Multiple sclerosis, with acute exacerbation. 2.Hypokalemia. 3.Hypertension. 4.Mixed hyperlipidemia. 5.Impaired fasting glucose. 6.Sinus tachycardia. 7.Fibromyalgia. 8.Gastroesophageal reflux disease. 9.Osteoarthritis, multiple sites. 10.Anxiety. Discharge Medications And Instructions: 1.Continue all prior home medications. 2.Follow up at my office next week. SCOTTY/MODL Voice ID: [id number] Report ID: [id number]
[2022-06-11] MEDS: METHYLPRED NA SUC 1,000 MG in NA CHLORIDE 0.9% 100 ML IV SCH (16:12)
[2022-06-11] MEDS: CYANOCOBALAMIN 1,000 MCG TAB PO SCH (16:12)
[2022-06-11 16:34] VITALS: BP 122/77; TEMP 98.1
[2022-06-16] MEDS ORDERED: FUROSEMIDE 20 MG TABLET PO SCH (06:00)
== END 2022-06-11 18:33 | disposition home or self-care (01) | DRG 60 ==
LOC: 2ND 17:32
PROVIDERS: ADMIT Internal Medicine; ATTEND Internal Medicine
DX: G35 Multiple sclerosis (principal); E87.6 Hypokalemia; I10 Essential (primary) hypertension; E78.2 Mixed hyperlipidemia; R73.01 Impaired fasting glucose; R00.0 Tachycardia, unspecified; M79.7 Fibromyalgia; K21.9 Gastro-esophageal reflux disease without esophagitis; M15.9 Polyosteoarthritis, unspecified; F41.9 Anxiety disorder, unspecified; E03.9 Hypothyroidism, unspecified; D69.6 Thrombocytopenia, unspecified; Z20.822 Contact with and (suspected) exposure to COVID-19; Z88.8 Allergy status to other drugs, medicaments and biological substances; Z86.718 Personal history of other venous thrombosis and embolism; Z90.710 Acquired absence of both cervix and uterus; Z82.49 Family history of ischemic heart disease and other diseases of the circulatory system
CPT/HCPCS: 36415; 70553; 80048; 80053; 82947; 83036; 83735; 84443; 85025; 87811; A9577; J1650; J1815; J2930

== ENCOUNTER 2023-01-27 19:09 | Emergency (ER) | payer OTHER ==
--- OUTSIDE RECORDS SUMMARY | 2023-01-27 19:36 | XMS REPORT | Continuity of Care Document ---
:1960 Author Organization [facility] t Address [address] [place] [address] [address] [place] [address] Care Team Providers Name Role Phone MIGUELITO RABAGO Primary Care Physician Unavailable Miguelito Rabago Attending Clinician Unavailable [email or web address] Attending Clinician Unavailable JEFE SANZ Attending Clinician Unavailable Nurse, Adc Pob Immunization Attending Clinician Unavailable Jefe Sanz DO Attending Clinician BRII JENSEN Attending Clinician Unavailable Daniel Taylor MD Attending Clinician DANIEL TAYLOR Attending Clinician Unavailable DANIEL TAYLOR Attending Clinician Unavailable LEIGHTON AGUIRRE Attending Clinician Unavailable SABA BELL Attending Clinician Unavailable [email or web address] Admitting Clinician Unavailable DANIEL TAYLOR Admitting Clinician Unavailable Payers Payer Name Policy Type Policy Number Effective Date Expiration Date S davon AETNA - CHOICE [id number] 2001 (POS II) 00:00:00 AETNA 53 [id number] [facility] [employer] COMMERCIAL [id number] 2020 OUT OF NETWORK 00:00:00 Problems Condition Condition Condition Status Onset Resolution Last Treating Co mments Source Name Details Category Date Date Treatment Clinician Date S/P total S/P total Disease Active Uni vers hip hip 8-26 ity of [place] Obesity Obesity Disease Active Univers (BMI (BMI 8-26 ity of 30-39.9) 30-39.9) 00:00: [place] 00 Medical Branch AVN AVN Disease Active Overview: Univer s (avascular (avascular 12-18 Formattin 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 Added automatic ally from request for surgery [id number] [place] [id number] finger of Spirit left thumb - [facility] [id number] Lower Problem Common urinary Spirit tract - [facility] symptoms [facility] [id number] MS Problem Common (multiple Spirit sclerosis) - [facility] [id number] Nocturia Problem Comm on Spirit [facility] Allergies, Adverse Reactions, Alerts Allergy Allergy Status Severity Reaction(s) Onset Inactive Treating Comm ents Source Name Type Date Date Clinician Glatiram Propensi Active Hives Univer s er ty to 4-16 ity of (Copolym adverse 00:00: [place] er 1) reaction 00 Medical s Branch GLATIRAM DRUG Active Hives Univers ER INGREDI 4-16 ity of (COPOLYM 00:00: [place] ER 1) 00 Medical Branch glatiram glatiram Active Unknown Commo n er er [facility] Social History Social Habit Start Date Stop Date Quantity Comments Source History of [facility] - Tobacco Use [facility] Sex Assigned At [facility] sean - [facility] Alcohol intake 2020-12-22 2020-12-22 Current University of 00:00:00 00:00:00 non-drinker of [facility] alcohol Branch (finding) Tobacco use and 2019-01-08 2019-01-08 Never used Universit y of exposure 00:00:00 00:00:00 [facility] Smoking Status Start Date Stop Date Source Former Smoker 2022-06-02 00:00:00 2022-06-02 00:00:00 [facility] pirit [facility] Medications Ordered Filled Start Stop Current Ordering Indication Dosage Frequency Signature Comments Components Source Medication Medication Date Date Medication? Clinician (SIG) Name Name Bupivicaine Bupivicaine No 2.5mg [facility] [place] 8-18 Spirit 00:00: - [facility] Kenalog Kenalog No 40mg Common (Triamcinol (Triamcinol 8-18 S pirit one) one) 00:00: - [facility] Lidocaine Lidocaine No 10mg Com mon 1-19 Spirit 00:00: - [facility] Kenalog Kenalog No 40mg Common (Triamcinol (Triamcinol 1-19 S pirit one) one) 00:00: - [facility] dimethyl Yes 240mg Take 1 Univer s fumarate 9-14 capsule by ity o f (TECFIDERA) 00:00: mouth 2 Yasmani as 240 mg 00 (two) Medical capsule times Branch daily. iohexol Yes 41ug Inject 41 Unive rs (OMNIPAQUE 6-11 mcg as ity of REDIFLO 240 13:26: directed. [place] INJECTION) [address] [place] [address] XARELTO 20 2018-05 Yes Univers mg tablet 2-30 ity of 00:00: [place] [facility] pregabalin 2018-05 Yes [id number] 50mg Take 2 Univers 25 mg 1-12 6 capsules ity of capsule 00:00: [place] mouth 3 [place] (three) Medical times Branch daily. MULTIVITAMI Yes Take by Uni vers N ORAL 9-10 mouth. ity of 14:07: [address] calcium Yes Take by Univers carbonate/v 9-10 mouth. ity of itamin D3 14:07: [place] (CALCIUM 17 Medical 500 + D, Branch D3, ORAL) pantoprazol Yes 40mg Take 40 mg Univers e 40 mg EC 9-10 by mouth ity o f tablet 14:07: daily. [address] Venlafaxine Yes Take by Uni vers 225 mg TR24 9-10 mouth. ity of 14:05: [address] acetaminoph Yes [id number] 1{tbl} Take 1 Univers en-codeine 8-27 6 tablet by ity of (TYLENOL-CO 00:00: mouth [place] DEINE #3) 00 every 4 Medical 300-30 mg (four) Branch tablet hours as needed for Pain (scale 4-6) or Pain (scale 7-10). traZODONE 2018- Yes 50mg Take 50 mg Un deidra 50 mg 8-16 by mouth ity of tablet 00:00: at [place] [address] bedtime. Medical Branch QUEtiapine 2018- Yes Univers 300 mg 24 4-15 ity of hr tablet 00:00: [place] [address] Medical Branch rosuvastati 2018- Yes Univer s n 20 mg 4-14 ity of tablet 00:00: [place] [address] Medical Branch ARIPiprazol 2018- Yes 10mg Take 10 mg Univers e 10 mg 4-12 by mouth ity of tablet 00:00: daily. [place] [address] Medical Branch diazePAM 5 Yes TAKE 1 Unive rs mg tablet 4-10 TABLET BY ity o f 00:00: MOUTH [place] [address] DAILY Medical NEEDED FOR Branch ANXIETY. levothyroxi Yes 50ug Take 50 Uni vers ne 50 mcg 4-03 mcg by ity of tablet 00:00: mouth. [place] Medical [facility] metoprolol Yes TAKE 1 Unive [...] Immunizations Ordered Filled Immunization Date Status Comments Sourc e Immunization Name Name SARS-COV-2 COVID-19 2021-01-29 Completed Unive rsity of PFIZER VACCINE 00:00:00 [facility] SARS-COV-2 COVID-19 2020-07-28 Completed Unive rsity of PFIZER VACCINE 00:00:00 [facility] SARS-COV-2 COVID-19 2020-07-07 Completed Unive rsity of PFIZER VACCINE 00:00:00 [facility] Vital Signs Vital Name Observation Time Observation Value Comments Source height 2022-06-02 14:30:00 65 [in_i] [facility] weight 2022-06-02 14:30:00 198.2 [lb_av] [facility] temperature 2022-06-02 14:30:00 97.4 [degF] [facility] bmi 2022-06-02 14:30:00 32.98 kg/m2 [facility] oximetry 2022-06-02 14:30:00 97 % [facility] respiratory rate 2022-06-02 14:30:00 16 /min Comm on [facility] blood pressure 2022-06-02 14:30:00 121 mm[Hg] [facility] systolic [facility] blood pressure 2022-06-02 14:30:00 64 mm[Hg] [facility] diastolic [facility] Procedures Procedure Date / Time Performed Performing Clinician [facility] e SARS-COV-2 COVID-19 2021-01-29 16:07:05 Doctor Unassigned, No [facility] [place] VACCINE,0.3ML,IM Name Medical Branch (Bandtastic) Encounters Start End Encounter Admission Attending Care Care Encounter Source Date/Time Date/Time Type Type Clinicians Facility Department ID 2022-08-26 Outpatient Rabago, STCICI [facility] [id number] Common 15:18:01 Miguelito [id number] [facility] 2022-06-02 Outpatient Rabago, STFIDELC [facility] [id number] Common 14:22:02 Miguelito 112[address] [facility] 2021-03-16 Emergency [facility] [id number] Univers 14:17:06 ity of [facility] Branch 2022-12-09 2022-12-09 Outpatient GC_GCBZW_Ka PRIV PRIV [id number] [facility] 00:00:00 00:00:00 diyala_S [id number] Medic al 2022-12-08 2022-12-08 Outpatient GC_GCBZW_Ka PRIV PRIV [id number] [facility] 00:00:00 00:00:00 diyala_S [id number] Medic al 2022-12-08 2022-12-08 Outpatient GC_GCBZW_Ka PRIV PRIV [id number] [facility] 00:00:00 00:00:00 diyala_S [id number] Medic al 2022-11-24 2022-11-24 Outpatient GC_GCBZW_Ka PRIV PRIV [id number] [facility] 00:00:00 00:00:00 diyala_S [id number] Medic al 2022-11-23 2022-11-23 Outpatient GC_GCBZW_Ka PRIV PRIV [id number] [facility] 00:00:00 00:00:00 diyala_S [id number] Medic al 2022-06-02 2022-06-02 OFFICE STLMLC STLMLC [id number] Co mmon 00:00:00 00:00:00 VISIT KULDEEP Martins PT LEVEL 3 - [facility] 2021-01-29 2021-01-29 Outpatient Hubert SANZ [facility] [id number] Univers 11:10:00 11:10:00 JEFE hernandez [facility] 2021-01-29 2021-01-29 Imm/Inj Nurse, Adc Pob Immunization [facility] [id number] Univers 11:05:44 11:06:08 Visit Jefe Sanz [id number] .10 [facility] [id number] [place] Professio [phone] Pa dical [address] 2020-07-28 2020-07-28 Outpatient Hubert JENSEN [facility] [id number] Univers 15:30:00 15:30:00 BRII moises [facility] 2020-07-07 2020-07-07 Outpatient Hubert JENSEN [facility] [id number] Univers 15:30:00 15:30:00 BRII [facility] 2020-01-28 2020-01-28 Telephone LILIBETH Taylor [id number] 00:00:00 00:00:00 [facility] [id number] [facility] [id number] [facility] 2020-01-21 2020-01-21 [facility] [id number] 00:00:00 00:00:00 Daniel Chapman [id number] [place] [id number] Professio [phone] [address] 2020-01-04 2020-01-04 [facility] [id number] 00:00:00 00:00:00 Daniel Chapman [id number] [place] [id number] Professio [phone] [address] 2019-12-31 2019-12-31 [facility] [id number] 00:00:00 00:00:00 Daniel Chapman [id number] [place] [id number] Professio [phone] [address] 2019-12-27 2019-12-27 [facility] [id number] 00:00:00 00:00:00 Daniel Chapman [id number] [place] [id number] Professio [phone] [address] 2019-12-17 2019-12-17 Kl[facility] [id number] 00:00:00 00:00:00 Daniel Chapman [id number] [place] [id number] Professio [phone] [address] 2019-12-10 2019-12-10 [facility] [id number] 00:00:00 00:00:00 Daniel Chapman [id number] [place] [id number] Professio [phone] [address] 2019-12-05 2019-12-05 [facility] [id number] 00:00:00 00:00:00 Daniel Chapman [id number] [place] [id number] [facility] [phone] nal 092 [facility] 2019-11-28 2019-11-28 Outpatient DANIEL MELO [facility] [id number] Univers 14:30:00 14:30:00 DANIEL TAYLOR [facility] 2019-11-27 2019-11-27 Outpatient Hubert CLAUDIA, DANIEL [facility] [id number] Univers 16:00:00 16:00:00 CLAUDIA DANIEL metzgermoises [facility] 2019-10-25 2019-10-25 Outpatient Hubert AGUIRRE [facility] [id number] Univers 14:03:13 23:59:00 LEIGHTON hernandez [facility] 2019-09-20 2019-09-20 Outpatient DANIEL MELO [facility] [id number] Univers 12:11:55 23:59:00 CLAUDIA, DANIEL mary [facility] 2019-08-13 2019-08-13 Outpatient Hubert HERMANCLAUDIA, DANIEL [facility] [id number] Univers 11:20:00 11:20:00 CLAUDIADANIEL Solitario [facility] 2019-07-23 2019-07-23 Outpatient DANIEL MELO [facility] [id number] Univers 15:40:00 15:40:00 DANIEL TAYLOR [facility] 2019-04-18 2019-04-18 Outpatient DANIEL MELO [facility] [id number] Univers 11:21:28 23:59:00 CLAUDIA DANIEL hernandez [facility] 2019-01-23 2019-01-23 Outpatient RAY [facility] [id number] Univers 13:14:41 23:59:00 SABA moises [facility] 2018-10-27 2018-10-27 Outpatient TIMOTHY [facility] [id number] Univers 11:18:18 23:59:00 LEIGHTON [facility] Results This patient has no known results.
[2023-01-27] MEDS ORDERED: IBUPROFEN 400 MG TAB ONE (19:51)
--- NOTE | 2023-01-27 20:14 | RAD REPORT ---
EXAM DESCRIPTION: RAD - Wrist Left 3 View - 01/27/2023 8:02 pm CLINICAL HISTORY: PAIN Pain COMPARISON: No comparisons FINDINGS: Mild soft tissue swelling is present. No acute fracture or dislocation.
--- NOTE | 2023-01-27 20:41 | ER ---
Nurse's Notes [facility] Name: Nicky Jaquez Age: 62 yrs Sex: Female : 1960 Arrival Date: 01/27/2023 Time: 19:09 Bed 11 Private MD: Diagnosis: Pain in left wrist-from fall Presentation: 01/27 19:26 Chief complaint: Patient states: MECHANICAL FALL AT 1330, LEFT LATERAL WRIST PAIN. bp Coronavirus screen: At this time, the client does not indicate any symptoms associated with coronavirus-19. Ebola Screen: No symptoms or risks identified at this time. Initial Sepsis Screen: Does the patient meet any 2 criteria? No. Patient's initial sepsis screen is negative. Does the patient have a suspected source of infection? No. Patient's initial sepsis screen is negative. Risk Assessment: Do you want to hurt yourself or someone else? Patient reports no desire to harm self or others. Onset of symptoms was January 27, 2023 at 13:30. 19:26 Method Of Arrival: Ambulatory bp 19:26 Acuity: JOHN 3 bp Triage Assessment: 19:29 General: Appears in no apparent distress. Behavior is calm, cooperative, appropriate bp for age. Pain: Complains of pain in left wrist. EENT: No deficits noted. Musculoskeletal: Swelling present in left wrist. Injury Description: Bruise sustained to left wrist. Historical: - Allergies: 19:22 Copaxone; bp - Home Meds: 19:22 levothyroxine 100 mcg oral tablet [Active]; venlafaxine 225 mg Oral tr24 1 tab once bp daily [Active]; aripiprazole 10 mg Oral TbDL 1 tab once daily [Active]; metoprolol tartrate 50 mg Oral tab 1 tab 2 times per day [Active]; rosuvastatin 20 mg oral tablet 1 tab [Active]; furosemide 20 mg Oral tablet daily [Active]; terazosin 2 mg oral capsule every day at bedtime [Active]; quetiapine 400 mg oral Tablet, Extended Release 24 hr every evening [Active]; Rybelsus 7 mg oral tablet daily [Active]; pantoprazole 40 mg Oral TbEC 1 tab once daily [Active]; aspirin 81 mg Oral capsule daily [Active]; dimethyl fumarate 240 mg oral capsule,delayed release (e.c.) 2 times per day [Active]; - PMHx: 19:22 "fast heart rate"; Bipolar disorder; Glaucoma; Hypothyroidism; Multiple Sclerosis; bp - Immunization history:: Adult Immunizations up to date. - Social history:: Smoking status: Patient denies any tobacco usage or history of. Screenin:29 [facility] ED Fall Risk Assessment (Adult) History of falling in the last 3 months, bp including since admission Yes- single mechanical fall (1 pt). Abuse screen: Denies threats or abuse. Denies injuries from another. Nutritional screening: No deficits noted. Tuberculosis screening: No symptoms or risk factors identified. Assessment: 19:30 General: SEE TRIAGE NOTE. bp 19:49 Musculoskeletal: Swelling present in lateral aspect of left wrist and dorsal aspect of kb3 left wrist Reports pain in lateral aspect of left wrist and dorsal aspect of left wrist. Vital Signs: 19:26 BP 138 / 79; Pulse 100; Resp 16; Temp 98; Pulse Ox 95% ; bp 21:33 BP 141 / 75; Pulse 97; Resp 16; Pulse Ox 95% ; bp ED Course: 19:14 Patient arrived in ED. kj1 19:18 Ej Do PA is PHCP. cp 19:18 Jas Zhou MD is Attending Physician. cp 19:21 Sharad Nicholas, BERNARDO is Primary Nurse. bp 19:27 Triage completed. bp 19:29 Arm band placed on. bp 19:29 Patient has correct armband on for positive identification. Bed in low position. Call bp light in reach. Side rails up X2. 19:49 Provided Education on: Plan of care. kb3 19:49 No provider procedures requiring assistance completed. Patient did not have IV access kb3 during this emergency room visit. 20:03 XRAY Wrist LEFT 3 view In Process Unspecified. EDMS 20:39 Feliz Herrera MD is Referral Physician. cp Administered Medications: 19:40 Drug: Ibuprofen PO 800 mg Route: PO; kb3 21:33 Follow up: Response: No adverse reaction bp Medication: 19:49 VIS not applicable for this client. kb3 Outcome: 20:40 Discharge ordered by . cp 21:32 Discharged to home ambulatory, with family. bp 21:32 Condition: stable 21:32 Discharge instructions given to patient, family, Instructed on discharge instructions, follow up and referral plans. Demonstrated understanding of instructions, follow-up care, medications, splint care, Prescriptions given X 1. 21:33 Patient left the ED. bp Signatures: Dispatcher [employer] EDMS Ej Do PA PA cp Peltier, Brian, RN RN bp Ciara Brito kj1 Jessica Duarte RN RN kb3 Corrections: (The following items were deleted from the chart) 19: 19:22 PSHx: Cholecystectomy; bp bp 19: 19:22 PSHx: hysterectomy; bp bp 19: 19:22 PSHx: L hip replacement; bp bp 19: 19:22 PSHx: back; bp bp
--- NOTE | 2023-01-27 20:41 | EDPHYS ---
Physician Documentation [facility] Name: Nicky Jaquez Age: 62 yrs Sex: Female : 1960 Arrival Date: 01/27/2023 Time: 19:09 Bed 11 Private MD: ED Physician Jas Zhou HPI: 01/27 19:45 This 62 yrs old Female presents to ER via Ambulatory with complaints of Wrist Injury. cp 19:45 The patient or guardian reports injury, pain. The complaints affect the left wrist cp diffusely. Context: resulted from a fall, while carrying gallon jugs of tea. 19:45 Onset: The symptoms/episode began/occurred today. Associated signs and symptoms: The cp patient has no apparent associated signs or symptoms. 19:45 Patient reports losing her balance while carrying gallon jugs of tea in each hand. Fell cp to ground injuring left wrist. Historical: - Allergies: 19:22 Copaxone; bp - Home Meds: 19:22 levothyroxine 100 mcg oral tablet [Active]; venlafaxine 225 mg Oral tr24 1 tab once bp daily [Active]; aripiprazole 10 mg Oral TbDL 1 tab once daily [Active]; metoprolol tartrate 50 mg Oral tab 1 tab 2 times per day [Active]; rosuvastatin 20 mg oral tablet 1 tab [Active]; furosemide 20 mg Oral tablet daily [Active]; terazosin 2 mg oral capsule every day at bedtime [Active]; quetiapine 400 mg oral Tablet, Extended Release 24 hr every evening [Active]; Rybelsus 7 mg oral tablet daily [Active]; pantoprazole 40 mg Oral TbEC 1 tab once daily [Active]; aspirin 81 mg Oral capsule daily [Active]; dimethyl fumarate 240 mg oral capsule,delayed release (e.c.) 2 times per day [Active]; - PMHx: 19:22 "fast heart rate"; Bipolar disorder; Glaucoma; Hypothyroidism; Multiple Sclerosis; bp - Immunization history:: Adult Immunizations up to date. - Social history:: Smoking status: Patient denies any tobacco usage or history of. ROS: 19:50 MS/extremity: Positive for pain, swelling, tenderness, of the left wrist, Negative for cp decreased range of motion, deformity. 19:50 Neck: Negative for pain with movement, pain at rest. cp 19:50 Respiratory: Negative for cough, shortness of breath, wheezing. 19:50 Abdomen/GI: Negative for abdominal pain, nausea, vomiting, and diarrhea. 19:50 Back: Negative for pain at rest, pain with movement. 19:50 Neuro: Negative for dizziness, headache, numbness, syncope, weakness. 19:50 All other systems are negative. Exam: 19:55 Constitutional: The patient appears in no acute distress, alert, awake, well developed, cp well nourished. 19:55 Head/Face: Normocephalic, atraumatic. cp 19:55 Cardiovascular: Rate: tachycardic, Pulses: Pulses are 2+ in left radial artery. 19:55 Respiratory: the patient does not display signs of respiratory distress, Respirations: normal, no use of accessory muscles, no retractions. 19:55 Abdomen/GI: Inspection: abdomen appears normal. 19:55 Musculoskeletal/extremity: Extremities: grossly normal except: noted in the left wrist: tenderness, mild swelling, pain with passive ROM, There is no evidence of decreased ROM, deformity, ROM: limited passive range of motion due to pain, in the left wrist, the left hand Sensation intact. Vital Signs: 19:26 BP 138 / 79; Pulse 100; Resp 16; Temp 98; Pulse Ox 95% ; bp 21:33 BP 141 / 75; Pulse 97; Resp 16; Pulse Ox 95% ; bp MDM: 19:23 Patient medically screened. cp 20:00 Differential diagnosis: dislocation, closed fracture, sprain. cp 20:22 Independent interpretation of the following test(s) in the Emergency Department X-Ray: My interpretation is left wrist images negative for fracture. 20:40 Data reviewed: vital signs, nurses notes, radiologic studies, plain films. cp 20:40 I considered the following discharge prescriptions or medication management in the emergency department Medications were administered in the Emergency Department. See MAR. Care significantly affected by the following chronic conditions: Multiple Sclerosis. Counseling: I had a detailed discussion with the patient and/or guardian regarding the historical points, exam findings, and any diagnostic results supporting the discharge/admit diagnosis, radiology results, to return to the emergency department if symptoms worsen or persist or if there are any questions or concerns that arise at home. Response to treatment: the patient's symptoms have mildly improved after treatment, and as a result, I will discharge patient. 01/27 19:36 Order name: XRAY Wrist LEFT 3 view; Complete Time: 20:38 cp 01/27 20:39 Interpretation: Report reviewed. cp 01/27 20:22 Order name: Wrist Splint; Complete Time: 21:17 cp Administered Medications: 19:40 Drug: Ibuprofen PO 800 mg Route: PO; kb3 21:33 Follow up: Response: No adverse reaction bp Disposition: 01/28 20:00 Co-signature as Attending Physician, Jas Zhou MD I reviewed the patient's care rt provided by the Advanced Practice Provider and agree with the diagnosis and treatment plan. Disposition Summary: 01/27/23 20:40 Discharge Ordered Location: Home cp Problem: new cp Symptoms: have improved cp Condition: Stable cp Diagnosis - Pain in left wrist - from fall cp Followup: cp - With: Feliz Herrera MD - When: 1 week - Reason: Recheck today's complaints Discharge Instructions: - Discharge Summary Sheet cp - Wrist Pain, Adult cp Forms: - Medication Reconciliation Form cp - Thank You Letter cp - Antibiotic Education cp - Prescription Opioid Use cp - Patient Portal Instructions cp - Leadership Thank You Letter cp Prescriptions: - Ibuprofen 800 mg Oral Tablet - take 1 tablet by ORAL route every 8 hours As needed take with food; 30 tablet; cp Refills: 0, Product Selection Permitted Signatures: Dispatcher [employer] EDMS Ej Do PA PA cp Sharad Nicholas, RN RN Jessica Henriquez, RN RN kb3 Jas Zhou MD MD rt Corrections: (The following items were deleted from the chart) 01/27 19:26 19:22 PSHx: Cholecystectomy; bp bp 19:26 19:22 PSHx: hysterectomy; bp bp 19:26 19:22 PSHx: L hip replacement; bp bp 19:26 19:22 PSHx: back; bp bp
[2023-01-27 21:37] VITALS: TEMP 98; O2SAT 95
[2023-01-27 21:39] VITALS: BP 141/75
== END 2023-01-27 21:33 | disposition home or self-care (01) ==
LOC: ER 19:09
DX: M25.532 Pain in left wrist (principal); W18.30XA Fall on same level, unspecified, initial encounter
CPT/HCPCS: 99283

== ENCOUNTER 2024-04-27 09:04 | Emergency (ER) | payer OTHER, MEDICARE ==
[2024-04-27] MEDS ORDERED: NA CHLORIDE 0.9% 500 ML ONE (09:42)
[2024-04-27 10:02] LABS: Absolute Eosinophils 0.1 K/uL (0-0.5); Absolute Lymphocytes (CBC) 0.3 K/uL (0.7-4.9); Absolute Monocytes 0.7 K/uL (0.1-1.3); Absolute Neutrophil 2.5 K/uL (1.8-8.0); Basophils % 0.4 % (0-1.3); Eosinophils % 3.6 % (0-4.4); Hematocrit 41.3 % (36.0-45.0); Hemoglobin 14.1 g/dL (12.0-15.0); Lymphocytes % 7.9 % (15.3-44.8); MCH 32.2 pg (27.0-35.0); MCHC 34.2 g/dL (32.0-36.0); MCV 94.1 fL (80-100); MPV 8.1 fL (7.6-11.3); Monocytes % 18.7 % (3.3-12.3); Neutrophils % 69.4 % (41.7-73.7); Nucleated Red Blood Cells % 0.3 % (0-0); Platelets 173 thou/uL (152-406); RBC Red Blood Cell Count 4.39 M/uL (3.86-4.86); Red Cell Distribution Width 12.1 % (12.1-15.2)
[2024-04-27 10:06] LABS: Protime INR 0.98
[2024-04-27 10:25] LABS: Albumin 3.7 g/dL (3.4-5.0); Anion Gap 8.2 mEq/L (5.0-15.0); Bilirubin Direct 0.2 mg/dL (0-0.2); Bilirubin Indirect, Calculated 0.4 mg/dL (0.2-0.8); Bilirubin Total 0.6 mg/dL (0.2-1.0); Globulin 3.6 g/dL (2.3-3.5); Magnesium 1.7 mg/dL (1.6-2.4); Potassium 3.2 mEq/L (3.5-5.1); Protein, Total 7.3 g/dL (6.4-8.2); Troponin High Sensitivity 3.4 pg/mL (<58.9)
[2024-04-27 10:32] LABS: Specific Gravity 1.013 (1.005-1.030); Sqamous Epithelial <5 /HPF (None Seen); Urine Bacteria <20 /HPF (<20); Urine Bilirubin NEGATIVE (Negative); Urine Blood Negative (Negative); Urine Clarity Turbid (Clear); Urine Color Yellow (Yellow); Urine Culture Reflex Order REFLEXED; Urine Glucose NEGATIVE (Negative); Urine Ketones NEGATIVE (Negative); Urine Microscopic Reflex YN ORDER UMIC; Urine Mucus Slight /HPF (None Seen); Urine Nitrite NEGATIVE (Negative); Urine Protein NEGATIVE (Negative); Urine RBC <5 /HPF (None Seen); Urine Urobilinogen Normal (Normal); Urine WBC 20-50 /HPF (<5); Urine Yeast (Budding) Trace /HPF (None Seen)
--- NOTE | 2024-04-27 10:35 | RAD REPORT ---
EXAMINATION: US bilateral LOWER EXTREMITY VENOUS DOPPLER CLINICAL INDICATION: Leg pain TECHNIQUE: Sonographic evaluation of the veins of the lower extremity bilaterally formed.Grayscale, c olor and spectral analysis performed on all vessels COMPARISON: 2019 FINDINGS: The common femoral, superficial femoral, greater saphenous, popliteal and posterior tibial veins bila terally are compressible and demonstrate augmentation. Doppler demonstrates good flow. IMPRESSION: No evidence of deep venous thrombosis involving either lower extremity
--- NOTE | 2024-04-27 10:42 | RAD REPORT ---
EXAMINATION: CTA CHEST PE CLINICAL INDICATION: Chest pain TECHNIQUE: 100 cc 370 Isovue administered intravenously. This examination was performed according to an angiographic protocol with 3D post-processing. This involves 3D reconstructions, MIPs, volume rendered images and/or shaded surface rendering. One or more of the following dose reduction techniqu es were used: Automated exposure control, adjustment of the mA and/or kV according to patient size, and/or iterative reconstruction. Unless otherwise specified, incidental findings do not require dedic ated imaging follow-up. [id number]. COMPARISON: 2019 FINDINGS: A pulmonary embolus is not seen. An aortic aneurysm not noted. No pleural effusion. No pericardial effusion. Lungs are clear. IMPRESSION: No evidence of a pulmonary embolism
--- NOTE | 2024-04-27 10:44 | RAD REPORT ---
Procedure: Chest Single View HISTORY: Cough COMPARISON: 2022 FINDINGS: The lungs appear clear of acute infiltrate. No significant pleural effusion noted. The heart is normal size. IMPRESSION: No acute abnormality is displayed.
[2024-04-27] MEDS ORDERED: POTASSIUM 25 MEQ EFFERV TAB ONE (10:55)
[2024-04-27] MEDS ORDERED: CIPROFLOXACIN HCL 500 MG TAB ONE (10:55)
[2024-04-27] MEDS ORDERED: CEFTRIAXONE 1000 MG/VIAL ONE (10:55)
--- NOTE | 2024-04-27 11:17 | EDPHYS ---
Physician Documentation [facility] Name: Nicky Jaquez Age: 63 yrs Sex: Female : 1960 Arrival Date: 04/27/2024 Time: 09:04 Bed 15 Private MD: ED Physician Ej Espinosa HPI: 04/27 11:10 This 63 yrs old Female presents to ER via Ambulatory with complaints of Leg hemal Swelling, Leg Pain. 11:10 The patient presents with decreased range of motion, pain, swelling. The complaints hemal affect the medial aspect of right thigh, medial aspect of right knee, medial aspect of right calf, right quadriceps, right knee and right thomas. Context: resulted from an unknown cause. Onset: The symptoms/episode began/occurred 3 day(s) ago. Modifying factors: The symptoms are alleviated by nothing. the symptoms are aggravated by nothing. Associated signs and symptoms: The patient has no apparent associated signs or symptoms. Treatment prior to arrival includes: no previous treatment. Severity of symptoms: At their worst the symptoms were mild, moderate, in the emergency department the symptoms are unchanged. The patient has experienced similar episodes in the past, a few times. Historical: - Allergies: 09:22 Copaxone; aa5 - PMHx: 09:22 Bipolar disorder; Hypothyroidism; Multiple Sclerosis; "Fast heart rate" (Unknown); aa5 - Immunization history:: Adult Immunizations unknown. - Infectious Disease History:: Denies. - Social history:: Smoking status: Patient/guardian denies using tobacco. - Family history:: not pertinent. ROS: 11:10 Constitutional: Negative for fever, chills, and weight loss, Eyes: Negative for injury, hemal pain, redness, and discharge, ENT: Negative for injury, pain, and discharge, Neck: Negative for injury, pain, and swelling, Cardiovascular: Negative for chest pain, palpitations, and edema, Respiratory: Negative for shortness of breath, cough, wheezing, and pleuritic chest pain, Abdomen/GI: Negative for abdominal pain, nausea, vomiting, diarrhea, and constipation, Back: Negative for injury and pain, : Negative for injury, bleeding, discharge, and swelling, Skin: Negative for injury, rash, and discoloration, Neuro: Negative for headache, weakness, numbness, tingling, and seizure, Psych: Negative for depression, anxiety, suicide ideation, homicidal ideation, and hallucinations, Allergy/Immunology: Negative for hives, rash, and allergies, Endocrine: Negative for neck swelling, polydipsia, polyuria, polyphagia, and marked weight changes, Hematologic/Lymphatic: Negative for swollen nodes, abnormal bleeding, and unusual bruising, 11:10 MS/extremity: Positive for decreased range of motion, pain, swelling, tenderness, of the right leg, Exam: 11:10 Constitutional: This is a well developed, well nourished patient who is awake, alert, hemal and in no acute distress. Head/Face: Normocephalic, atraumatic. Eyes: Pupils equal round and reactive to light, extra-ocular motions intact. Lids and lashes normal. Conjunctiva and sclera are non-icteric and not injected. Cornea within normal limits. Periorbital areas with no swelling, redness, or edema. ENT: Nares patent. No nasal discharge, no septal abnormalities noted. Tympanic membranes are normal and external auditory canals are clear. Oropharynx with no redness, swelling, or masses, exudates, or evidence of obstruction, uvula midline. Mucous membranes moist. Neck: Trachea midline, no thyromegaly or masses palpated, and no cervical lymphadenopathy. Supple, full range of motion without nuchal rigidity, or vertebral point tenderness. No Meningismus. Chest/axilla: Normal chest wall appearance and motion. Nontender with no deformity. No lesions are appreciated. Cardiovascular: Regular rate and rhythm with a normal S1 and S2. No gallops, murmurs, or rubs. Normal PMI, no JVD. No pulse deficits. Respiratory: Lungs have equal breath sounds bilaterally, clear to auscultation and percussion. No rales, rhonchi or wheezes noted. No increased work of breathing, no retractions or nasal flaring. Abdomen/GI: Soft, non-tender, with normal bowel sounds. No distension or tympany. No guarding or rebound. No evidence of tenderness throughout. Back: No spinal tenderness. No costovertebral tenderness. Full range of motion. Skin: Warm, dry with normal turgor. Normal color with no rashes, no lesions, and no evidence of cellulitis. Neuro: Awake and alert, GCS 15, oriented to person, place, time, and situation. Cranial nerves II-XII grossly intact. Motor strength 5/5 in all extremities. Sensory grossly intact. Cerebellar exam normal. Normal gait. Psych: Awake, alert, with orientation to person, place and time. Behavior, mood, and affect are within normal limits. 11:10 ECG was reviewed by the Attending Physician. 11:10 Musculoskeletal/extremity: ROM: full active range of motion, full passive range of motion, limited active range of motion due to pain, limited passive range of motion due to pain, in the right leg, Circulation is intact in all extremities. Sensation intact. Compartment Syndrome exam of affected extremity: is normal. DVT Exam: negative Homans' sign noted on exam, no appreciated bluish discoloration, no erythema, no increased warmth, pain, swelling, tenderness, Vital Signs: 09:23 BP 138 / 91; Pulse 103; Resp 18 S; Temp 98(TE); Pulse Ox 95% on R/A; Weight 83.91 kg aa5 (R); Height 5 ft. 4 in. (R); 10:46 BP 111 / 63; Pulse 96; Pulse Ox 99% on R/A; MAP 67 mmHg; tm6 11:33 BP 103 / 75; Pulse 94; Resp 16; Temp 98; Pulse Ox 97% on R/A; MAP 85 mmHg; Pain 0/10; tm6 09:23 Body Mass Index 31.75 (83.91 kg, 162.56 cm) aa5 11:33 Pain Scale: Adult tm6 MDM: 09:08 Medical Screening Exam initiated hemal 11:14 Differential diagnosis: closed fracture, contusion, abrasion, tendonitis. Data [facility] reviewed: vital signs, nurses notes, lab test result(s), EKG, radiologic studies, CT scan, doppler. Consideration of Admission/Observation Escalation of care including admission/observation considered. I considered the following discharge prescriptions or medication management in the emergency department Medications were administered in the Emergency Department. See MAR. Independent interpretation of the following test(s) in the Emergency Department EKG: See my EKG interpretation above. Test considered but Not performed: MRI: no mri done. Historians other than the Patient: Spouse/Significant Other: well informed. Care significantly affected by the following chronic conditions: Diabetes, Hypertension, ms,hypothyroid, tachycardia. Counseling: I had a detailed discussion with the patient and/or guardian regarding the historical points, exam findings, and any diagnostic results supporting the discharge/admit diagnosis, lab results, radiology results, the need for outpatient follow up, for definitive care, an volleyball assistant coach. 04/27 09:08 Order name: Basic Metabolic Panel; Complete Time: 10:44 [facility] 04/27 09:08 Order name: CBC with Diff; Complete Time: 10:44 [facility] 04/27 09:08 Order name: LFT's; Complete Time: 10:44 [facility] 04/27 09:08 Order name: Magnesium; Complete Time: 10:44 [facility] 04/27 09:08 Order name: NT PRO-BNP; Complete Time: 10:44 [facility] 04/27 09:08 Order name: PT-INR; Complete Time: 10:44 [facility] 04/27 09:08 Order name: Troponin HS; Complete Time: 10:44 [facility] 04/27 09:08 Order name: Urinalysis w/ reflexes; Complete Time: 10:44 [facility] 04/27 09:15 Order name: Lipase; Complete Time: 10:44 [facility] 04/27 09:16 Order name: CPK; Complete Time: 10:44 [facility] 04/27 10:35 Order name: Urine Culture [facility] 04/27 10:46 Order name: CREATININE WHOLE BLOOD; Complete Time: 11:09 [facility] 04/27 09:08 Order name: XRAY Chest (1 view); Complete Time: 11:09 [facility] 04/27 09:08 Order name: US Extremity Venous W Compression Jesús; Complete Time: 10:44 [facility] 04/27 09:34 Order name: CT Chest For PE Angio; Complete Time: 10:44 [facility] 04/27 09:08 Order name: Cardiac monitoring; Complete Time: 09:44 [facility] 04/27 09:08 Order name: EKG - Nurse/Tech; Complete Time: 09:44 [facility] 04/27 09:08 Order name: IV Saline Lock; Complete Time: 09:44 [facility] 04/27 09:08 Order name: Labs collected and sent; Complete Time: 09:44 [facility] 04/27 09:08 Order name: O2 Per Protocol; Complete Time: 09:32 [facility] 04/27 09:08 Order name: O2 Sat Monitoring; Complete Time: 09:32 [facility] EC:10 Rate is 104 beats/min. Rhythm is regular. QRS [place] is Normal. UT interval is normal. [facility] QRS interval is normal. QT interval is normal. No Q waves. T waves are Normal. No ST changes noted. Clinical impression: Sinus tachycardia and No evidence of ischemia. Interpreted by me. Reviewed by me. Administered Medications: 09:52 Drug: NS 0.9% IV 500 ml 500 ml IV at 1 bolus once; to be given as a bolus over 30 kc6 minutes Volume: 500 ml; Route: IV; Rate: 1 bolus; Site: right antecubital; 11:20 Follow up: Response: No adverse reaction; IV Status: Completed infusion; IV Intake: tm6 500ml 11:03 Drug: Ciprofloxacin PO 500 mg PO once Route: PO; tm6 11:35 Follow up: Response: No adverse reaction tm6 11:03 Drug: Potassium PO Effervescent Tablet 25 mEq PO once; dissolve in 4 ounces of water or tm6 juice Route: PO; 11:35 Follow up: Response: No adverse reaction tm6 11:04 Drug: Rocephin IV 1 grams IV at per protocol once; Given slow IV push per pharmacy tm6 instructions Route: IV; Rate: per protocol; Site: right antecubital; 11:04 Follow up: Response: No adverse reaction; IV Status: Completed infusion; IV Intake: [id number] Disposition Summary: 04/27/24 11:17 Discharge Ordered Notes: Location: Home hemal Problem: new hemal Symptoms: have improved hemal Condition: Stable hemal Diagnosis - Pain in right leg - swelling hemal - UTI/ Urinary tract infection, site not specified hemal - Hypokalemia hemal Followup: hemal - With: Private Physician - When: 2 - 3 days - Reason: Recheck today's complaints, Continuance of care, Re-evaluation by your physician Followup: hemal - With: Miguelito Cummings MD - When: 2 - 3 days - Reason: Recheck today's complaints, Re-evaluation by your physician Discharge Instructions: - Discharge Summary Sheet hemal - Potassium Content of Foods hemal - Dysuria hemal - Musculoskeletal Pain hemal - Urinary Tract Infection, Adult hemal - Urinary Tract Infection, Adult, [id number] hemal - Hypokalemia hemal - Peripheral Edema hemal Forms: - Medication Reconciliation Form hemal - Antibiotic Education hemal - Prescription Opioid Use hemal - Patient Portal Instructions hemal - Leadership Thank You Letter hemal Prescriptions: - Cipro 250 mg Oral tablet - take 1 tablet ORAL route every 12 hours; 14 tablet; Refills: 0, Product hemal Selection Permitted Signatures: Dispatcher [employer] EDMS Ej Espinosa MD MD cha Calderon, Audri, RN RN aa5 Opal Perez RN RN kc6 Tony Gasca RN RN tm6 Corrections: (The following items were deleted from the chart) 09: 09:09 BASIC METABOLIC PANEL+C.LAB.BRZ ordered. EDMS EDMS 09:09 09:09 CBC+H.LAB.BRZ ordered. EDMS EDMS 09:09 09:09 HEPATIC FUNCTION+C.LAB.BRZ ordered. EDMS EDMS 09: 09:09 MAGNESIUM+C.LAB.BRZ ordered. EDMS EDMS 09:09 09:09 PROBNP+C.LAB.BRZ ordered. EDMS EDMS 09:09 09:09 PROTIME (+INR)+COAG.LAB.BRZ ordered. EDMS EDMS 09: 09:09 Troponin High Sensitivity+C.LAB.BRZ ordered. EDMS EDMS 09:09 09:09 Urinalysis+U.LAB.BRZ ordered. EDMS EDMS : 09:09 Chest Single View+RAD.RAD.BRZ ordered. EDMS EDMS 09: 09:09 Extrem Venous W Compression Jesús+US.RAD.BRZ ordered. EDMS EDMS 09:23 09:22 PMHx: Glaucoma; aa5 aa5
--- NOTE | 2024-04-27 11:17 | ER ---
Nurse's Notes [facility] Name: Nicky Jaquez Age: 63 yrs Sex: Female : 1960 Arrival Date: 04/27/2024 Time: 09:04 Bed 15 Private MD: Diagnosis: Pain in right leg-swelling;UTI/ Urinary tract infection, site not specified;Hypokalemia Presentation: 04/27 09:23 Chief complaint: Patient states: "On Tuesday I started with a big spasm to my right aa5 leg and it's been getting worse". Pt c/o pain to right leg and mild swelling. Coronavirus screen: At this time, the client does not indicate any symptoms associated with coronavirus-19. Ebola Screen: Patient denies travel to an Ebola-affected area in the 21 days before illness onset. Initial Sepsis Screen: Does the patient meet any 2 criteria? HR > 90 bpm. Does the patient have a suspected source of infection? No. Patient's initial sepsis screen is negative. Risk Assessment: Do you want to hurt yourself or someone else? Patient reports no desire to harm self or others. Onset of symptoms was April 2024. 09:23 Method Of Arrival: Ambulatory aa5 09:23 Acuity: JOHN 3 aa5 Historical: - Allergies: 09:22 Copaxone; aa5 - PMHx: 09:22 Bipolar disorder; Hypothyroidism; Multiple Sclerosis; "Fast heart rate" (Unknown); aa5 - Immunization history:: Adult Immunizations unknown. - Infectious Disease History:: Denies. - Social history:: Smoking status: Patient/guardian denies using tobacco. - Family history:: not pertinent. Screenin:[address] [facility] ED Fall Risk Assessment (Adult) History of falling in the last 3 months, kc6 including since admission No falls in past 3 months (0 pts) Confusion or Disorientation No (0 pts) Intoxicated or Sedated No (0 pts) Impaired Gait No (0 pts) Mobility Assist Device Used No (0 pt) Altered Elimination No (0 pt) Score/Fall Risk Level 0 - 2 = Low Risk Oriented to surroundings, Maintained a safe environment. Abuse screen: Denies threats or abuse. Denies injuries from another. Nutritional screening: No deficits noted. Tuberculosis screening: No symptoms or risk factors identified. Assessment: 10:00 General: Appears in no apparent distress. Behavior is calm, cooperative. Neuro: Level tm6 of Consciousness is awake, alert, obeys commands, Oriented to person, place, time, situation. Cardiovascular: Patient's skin is warm and dry. Respiratory: Airway is patent Respiratory effort is even, unlabored, Respiratory pattern is regular, symmetrical. 11:04 Pain: Complains of pain in right leg Pain currently is 0 out of 10 on a pain scale. at tm6 worst was 10 out of 10 on a pain scale. GI: No signs and/or symptoms were reported involving the gastrointestinal system. Abdomen is round non-distended. : No signs and/or symptoms were reported regarding the genitourinary system. EENT: No signs and/or symptoms were reported regarding the EENT system. Derm: No signs and/or symptoms reported regarding the dermatologic system. Musculoskeletal: Reports pain in right leg. 11:34 Reassessment: Patient and/or family updated on plan of care and expected duration. Pain tm6 level reassessed. Patient is alert, oriented x 3, equal unlabored respirations, skin warm/dry/pink. Vital Signs: 09:23 BP 138 / 91; Pulse 103; Resp 18 S; Temp 98(TE); Pulse Ox 95% on R/A; Weight 83.91 kg aa5 (R); Height 5 ft. 4 in. (R); 10:46 BP 111 / 63; Pulse 96; Pulse Ox 99% on R/A; MAP 67 mmHg; tm6 11:33 BP 103 / 75; Pulse 94; Resp 16; Temp 98; Pulse Ox 97% on R/A; MAP 85 mmHg; Pain 0/10; tm6 09:23 Body Mass Index 31.75 (83.91 kg, 162.56 cm) aa5 11:33 Pain Scale: Adult tm6 ED Course: 09:06 Patient arrived in ED. mr 09:08 Ej Espinosa MD is Attending Physician. hemal 09:21 Arm band placed on. aa5 09:24 Triage completed. aa5 09:32 Opal Perez, BERNARDO is Primary Nurse. kc6 09:50 Initial lab(s) drawn, by ne, sent to lab. kb4 09:51 Inserted saline lock: 20 gauge in right antecubital area, using aseptic technique. kb4 Blood collected. Flushed with 10 mL NS. 09:57 XRAY Chest (1 view) In Process Unspecified. EDMS 10:04 Patient has correct armband on for positive identification. Placed in gown. Bed in low kc6 position. Call light in reach. Side rails up X 1. Adult w/ patient. Report given to Tony Gasca RN. medical terminologist on. Pulse ox on. NIBP on. Door closed. Noise minimized. Lights dimmed. Warm blanket given. Pillow given. 10:11 CT Chest For PE Angio In Process Unspecified. EDMS 10:30 US Extremity Venous W Compression Jesús In Process Unspecified. EDMS 10:41 Urine Culture Sent. tm6 11:04 Provided Education on: use of call [facility]. tm6 11:16 Miguelito Cummings MD is Referral Physician. [facility] 11:34 No provider procedures requiring assistance completed. IV discontinued, intact, tm6 bleeding controlled, No redness/swelling at site. Pressure dressing applied. Administered Medications: 09:52 Drug: NS 0.9% IV 500 ml 500 ml IV at 1 bolus once; to be given as a bolus over 30 kc6 minutes Volume: 500 ml; Route: IV; Rate: 1 bolus; Site: right antecubital; 11:20 Follow up: Response: No adverse reaction; IV Status: Completed infusion; IV Intake: tm6 500ml 11:03 Drug: Ciprofloxacin PO 500 mg PO once Route: PO; tm6 11:35 Follow up: Response: No adverse reaction tm6 11:03 Drug: Potassium PO Effervescent Tablet 25 mEq PO once; dissolve in 4 ounces of water or tm6 juice Route: PO; 11:35 Follow up: Response: No adverse reaction tm6 11:04 Drug: Rocephin IV 1 grams IV at per protocol once; Given slow IV push per pharmacy tm6 instructions Route: IV; Rate: per protocol; Site: right antecubital; 11:04 Follow up: Response: No adverse reaction; IV Status: Completed infusion; IV Intake: [id number] Medication: 11:04 VIS not applicable for this client. tm6 Intake: 11:04 IV: 10ml; Total: 10ml. tm6 11:20 IV: 500ml; Total: 510ml. tm6 Outcome: 11:17 Discharge ordered by . hemal 11:34 Discharged to home ambulatory, with family, tm6 11:34 Condition: stable 11:34 Discharge instructions given to patient, family, Instructed on discharge instructions, follow up and referral plans. medication usage, Demonstrated understanding of instructions, follow-up care, medications, Prescriptions given X 1, 11:34 Patient left the ED. tm6 Signatures: Dispatcher [employer] EDMS Ej Espinosa MD MD cha Rivera, Jacqueline, Reg Reg mr Kinsey Yang RN RN aa5 Opal Perez RN RN kc6 Tony Gasca RN RN tm6 Audrey Shaw kb4 Corrections: (The following items were deleted from the chart) 09:23 09:22 PMHx: Glaucoma; aa5 aa5
[2024-04-27 11:54] VITALS: TEMP 98
[2024-04-27 12:01] VITALS: BP 103/75; O2SAT 97
--- NOTE | 2024-05-01 12:10 | EKG ---
Test Date: 2024-04-27 Test Time: 09:43:42 Java Android Developer: MEGHANN MEASUREMENT RESULTS: Intervals: Rate: 104 AR: 160 QRSD: 76 QT: 354 QTc: 465 [place]: P: 78 AR: 160 QRS: 63 T: 72 INTERPRETIVE STATEMENTS: Sinus tachycardia Otherwise normal ECG Compared to ECG 05/26/2022 15:39:39 Sinus rhythm no longer present Electronically Signed On 05-01-24 12:05:53 FIELD SERVICE ANALYST by Rick Weir
== END 2024-04-27 11:34 | disposition home or self-care (01) ==
LOC: ER 09:04 → SUPCPDRO 09:04 → ER 11:34
DX: R22.41 Localized swelling, mass and lump, right lower limb (principal); N39.0 Urinary tract infection, site not specified; E87.6 Hypokalemia
CPT/HCPCS: 96361; 87088; 85025; 81001; 87086; 80048; 36415; 83735; 82550; 85610; 82565; 80076; 87077; 87186; 84484; 83690; 83880; 71275; 71045; 93970; 96374; 99285; Q9967; J7040; J0696; 93005